=== PATIENT | male | born 1965 | race African-American/Black ===

== ENCOUNTER 2016-10-03 22:27 | Inpatient (IN) | payer OTHER ==
[2016-10-03 22:47] VITALS: BMI 42.3
[2016-10-03] MEDS ORDERED: ALBUTEROL SO4 0.083% IH SOL 2.5 MG/3 ML VIAL.NEB. NEB ONE ×2 (22:59→23:17)
[2016-10-03] MEDS ORDERED: MAGNESIUM SULF 50% (8.12 MEQ/2 ML-1 GM VIAL) IVPB ONE (22:59)
--- NOTE | 2016-10-03 23:11 | PDOC ---
History of Present Illness - General History Source: Patient Exam Limitations: No Limitations - History of Present Illness Initial Comments: 10/03/16 23:15 The patient is a 51 year old male, with a significant past medical history of IDDM, GERD, COPD, CHF, HTN, HLD, asthma, chronic kidney disease, right kidney CA (In remission since 2010) and seizures (last episode age 6, not on any meds) , who presents to the emergency department with shortness of breath, cough, fever, chills and night sweats for the past 3 days. He notes that his cough is productive of a white phlegm. He denies any sick contacts or recent travel. The patient denies chest pain, headache and dizziness. Denies nausea, vomit, diarrhea and constipation. Denies dysuria, frequency, urgency and hematuria. Allergies: Codeine, Iodine Past surgical history: None reported Social history: Alcohol, cocaine and cigarette use (10 daily) PMD - Dr. Anderson Ojeda Biochemistry Teacher - Dr. Stephanie Blankenship Agricultural Pilot - Dr. Higgins <Josesito De Anda - Last Filed: 10/03/16 23:15> - General History Source: Patient Exam Limitations: No Limitations <Richie Vale - Last Filed: 10/04/16 00:47> - General Chief Complaint: Asthma Stated Complaint: ASTHMA Time Seen by Provider: 10/03/16 22:35 Past History <Josesito De Anda - Last Filed: 10/03/16 23:15> - Past Medical History Anemia: No Asthma: Yes (MDI) Cancer: Yes (RT. KIDNEY in [place] 2010 on remission) Cardiac Disorders: No CVA: No COPD: No CHF: No Dementia: No Diabetes: Yes (IDDM DUE TO PREDNISONE TX(ENDED 08/25/16)) GI Disorders: Yes (HX GERD-NEXIUM) Disorders: No HTN: Yes Hypercholesterolemia: Yes Kidney Stones: No Liver Disease: Yes Suicide Attempt (Hx): No (DENIES) Seizures: Yes (LAST EPISODE AT 6 YRS OLD;NO CURRENT MED) Thyroid Disease: No - Surgical History Abdominal Surgery: No Appendectomy: No Cardiac Surgery: No Cholecystectomy: No Lung Surgery: No Neurologic Surgery: No Orthopedic Surgery: No - Reproductive History Testicular Surgery: No - Psycho/Social/Smoking Cessation Hx Anxiety: Yes Suicidal Ideation: No Smoking Status: Yes Smoking History: Former smoker Have you smoked in the past 12 months: Yes Number of Cigarettes Smoked Daily: 10 Cigars Per Day: 0 Information on smoking cessation initiated: No 'Breaking Loose' booklet given: 08/27/16 Hx Alcohol Use: No Drug/Substance Use Hx: No Substance Use Type: Alcohol, Cocaine Hx Substance Use Treatment: Yes ([facility]) <Richie Vale - Last Filed: 10/04/16 00:47> - Past Medical History Allergies/Adverse Reactions: Allergies Allergy/AdvReac Type Severity Reaction Status Date / Time codeine [Codeine] Allergy Severe Swelling Verified 08/31/16 15:01 iodine [Iodine] Allergy Severe Swelling Verified 08/31/16 15:01 shellfish derived Allergy Severe Swelling Verified 08/31/16 15:01 [Shellfish Derived] Home Medications: Ambulatory Orders Albuterol Sulfate Inhaler - [Ventolin HFA Inhaler -] 2 inh IH Q4H PRN 01/21/12 Aspirin [Ecotrin] 81 mg PO DAILY 12/17/15 Fluticasone/Salmeterol [Advair 250-50 Diskus] 2 inh PO BID 12/17/15 Insulin (Levemir) [Levemir Vial] 30 units SQ HS 12/17/15 Insulin (Novolog) [Novolog -] 0 units SQ AC 12/17/15 Citalopram Hydrobromide [Celexa -] 40 mg PO DAILY 08/27/16 Aspirin Coated [Ecotrin -] 81 mg PO DAILY tablet.ec 09/07/16 Atorvastatin Ca [Lipitor] 80 mg PO HS #14 tablet 09/07/16 Hydralazine HCl [Apresoline -] 20 mg PO TID #180 tablet 09/07/16 Review of Systems - Review of Systems Able to Perform ROS?: Yes Comments:: 10/03/16 23:15 GENERAL/CONSTITUTIONAL: +Fever, night sweats and chills. No weakness. HEAD, EYES, EARS, NOSE AND THROAT: No change in vision. No ear pain or discharge. No sore throat. CARDIOVASCULAR: +Shortness of breath. No chest pain RESPIRATORY: +Cough. No wheezing, or hemoptysis. GASTROINTESTINAL: No nausea, vomiting, diarrhea or constipation. GENITOURINARY: No dysuria, frequency, or change in urination. MUSCULOSKELETAL: No joint or muscle swelling or pain. No neck or back pain. SKIN: No rash NEUROLOGIC: No headache, vertigo, loss of consciousness, or change in strength/ sensation. ENDOCRINE: No increased thirst. No abnormal weight change HEMATOLOGIC/LYMPHATIC: No anemia, easy bleeding, or history of blood clots. ALLERGIC/IMMUNOLOGIC: No hives or skin allergy. <Josesito De Anda - Last Filed: 10/03/16 23:15> *Physical Exam - Vital Signs Last Vital Signs Temp Pulse Resp BP Pulse Ox 99 F 168/114 98 10/03/16 22:43 10/03/16 22:43 10/03/16 22:43 - Physical Exam Comments: 10/03/16 23:19 GENERAL: Awake, alert, and fully oriented, in no acute distress HEAD: No signs of trauma, normocephalic, atraumatic EYES: PERRLA, EOMI, sclera anicteric, conjunctiva clear ENT: Auricles normal inspection, hearing grossly normal, nares patent, oropharynx clear without exudates. Moist mucosa NECK: Normal ROM, supple, no lymphadenopathy, JVD, or masses LUNGS: +Scattered wheezing bilaterally. No distress, speaks full sentences. HEART: Regular rate and rhythm, normal S1 and S2, no murmurs, rubs or gallops, peripheral pulses normal and equal bilaterally. ABDOMEN: Soft, nontender, normoactive bowel sounds. No guarding, no rebound. No masses EXTREMITIES: Normal inspection, Normal range of motion, no edema. No clubbing or cyanosis. NEUROLOGICAL: Cranial nerves II through XII grossly intact. Normal speech, no focal sensorimotor deficits SKIN: Warm, Dry, normal turgor, no rashes or lesions noted. <Josesito De Anda - Last Filed: 10/03/16 23:15> - Vital Signs Last Vital Signs Temp Pulse Resp BP Pulse Ox 99 F 168/114 98 10/03/16 22:43 10/03/16 22:43 10/03/16 22:43 <Richie Vale - Last Filed: 10/04/16 00:47> Heart Score/ECG Review #1 ECG reviewed & interpreted by me at: 23:35 10/03/16 23:40 NSR 110, incomplete RBBB, atrial enlargement, no std/narendra, LAFB, QTC 516 msec <Richie Vale - Last Filed: 10/04/16 00:47> ED Treatment Course - LABORATORY CBC & Chemistry Diagram: 10/03/16 23:00 10/03/16 23:00 - RADIOLOGY Radiology Studies Ordered: Category Date Time Status CHEST X-RAY PORTABLE* [RAD] Stat Radiology 10/03/16 22:48 Ordered <Richie Vale - Last Filed: 10/04/16 00:47> Medical Decision Making - Medical Decision Making 10/03/16 23:10 A portion of this note was documented by scribe services under my direction. I have reviewed the details of the note, within reason, and agree with the documentation with the following case summary and management plan written by me. Patient treated in the ED. Nursing notes are reviewed and incorporated into the medical decision-making. Vital signs reviewed. Peripheral IV access obtained by the nurse, laboratory studies are drawn and sent, reviewed and interpreted by myself. Vital Signs Temp Pulse Resp BP Pulse Ox 99 F 168/114 98 10/03/16 22:43 10/03/16 22:43 10/03/16 22:43 51 year old male with past medical history of COPD, hypertension, congestive heart failure, COPD, asthma, chronic kidney disease presents to the emergency department for shortness of breath and coughing for 3 days. Patient denies any sick contacts but has noted of diffuse expiratory wheezing and clearish productive sputum and tactile fevers. Reports chest pain when coughing only. Denies any increasing lower extremity edema but does report some increased orthopnea. The patient is diffusely wheezing concerning for COPD exacerbation. However, CHF is within the differential. We'll obtain blood work, chest x-ray, labs. The patient already received 125 aggressive Solu-Medrol and couple nebulizers by EMS. We'll get 2 g of IV magnesium. Obtain a chest x-ray. Patient will likely be admitted to the hospital for further evaluation. 10/04/16 00:44 CBC, BMP 10/03/16 23:00 10/03/16 23:00 CMP Sodium 143 mmol/L (136-145) 10/03/16 23:00 Potassium 3.4 mmol/L (3.5-5.1) L 10/03/16 23:00 Chloride 103 mmol/L (98-107) 10/03/16 23:00 Carbon Dioxide 28 mmol/L (21-32) 10/03/16 23:00 Anion Gap 12 (8-16) 10/03/16 23:00 BUN 16 mg/dL (7-18) D 10/03/16 23:00 Creatinine 2.8 mg/dL (0.7-1.3) H D 10/03/16 23:00 Creat Clearance w eGFR 23.92 (>60) 10/03/16 23:00 Random Glucose 188 mg/dL (74-106) H D 10/03/16 23:00 Calcium 8.5 mg/dL (8.5-10.1) 10/03/16 23:00 Magnesium 1.6 mg/dL (1.8-2.4) L 10/04/16 00:05 Total Bilirubin 0.2 mg/dL (0.2-1.0) D 10/03/16 23:00 AST 25 U/L (15-37) 10/03/16 23:00 ALT 18 U/L (12-78) D 10/03/16 23:00 Alkaline Phosphatase 105 U/L (45-117) D 10/03/16 23:00 Creatine Kinase 945 IU/L (39-308) H D 10/03/16 23:00 CK-MB (CK-2) 4.609 ng/ml (0.5-3.6) H 10/03/16 23:00 CK-MB (CK-2) Rel Index Cancelled 10/03/16 23:00 Troponin I 0.07 ng/ml (0.00-0.05) H D 10/03/16 23:00 B-Natriuretic Peptide 90638.88 pg/ml (5-125) H 10/03/16 23:00 Total Protein 6.5 g/dl (6.4-8.2) 10/03/16 23:00 Albumin 2.6 g/dl (3.4-5.0) L 10/03/16 23:00 Chest xray reviewed by me, pending official radiology read. Cardiomegaly with pulm vasc congestion. 40mg IV lasix ordered. Aspirin ordered. Slightly elevated troponin (likely chronic). Patient wheezing improved but still persists. Azithromycin ordered. Influenza negative. Case discussed with Dr Rogers. She accepts the patient to telemetry admission. Case discussed in detail with admitting physician including history, physical exam and ancillary studies. Admitting physician has assumed care for the patient, will follow all pending diagnostics and will complete the evaluation and treatment. <Richie Vale - Last Filed: 10/04/16 00:47> *DC/Admit/Observation/Transfer - Attestations Scribe Attestion: 10/03/16 23:19 Documentation prepared by Josesito De Anda, acting as medical cost consultant for Richie Vale MD. <Josesito De Anda - Last Filed: 10/03/16 23:15> - Discharge Dispostion Admit: Yes <Richie Vale - Last Filed: 10/04/16 00:47> Diagnosis at time of Disposition: Chronic obstructive pulmonary disease Qualifiers: COPD type: unspecified COPD Qualified Code(s): J44.9 - Chronic obstructive pulmonary disease, unspecified CHF (congestive heart failure) Qualifiers: Congestive heart failure type: unspecified congestive heart failure type Congestive heart failure chronicity: acute on chronic Qualified Code(s): I50.9 - Heart failure, unspecified - Discharge Dispostion Condition at time of disposition: Fair - Referrals Referrals: Anderson Ojeda [Primary Care Provider] -
[2016-10-03] MEDS ORDERED: MAGNESIUM SULF 50% (8.12 MEQ/2 ML-1 GM VIAL) ONE (23:17)
[2016-10-03 23:19] LABS: BASOPHIL 0.8 % (0-2.0); EOSINOPHIL 1.1 % (0-4.5); MCH 24.7 pg (25.7-33.7); MCHC 31.6 g/dl (32.0-35.9); MEAN CELL VOLUME 78.1 fl (80-96); NEUTROPHILS 72.5 % (42.8-82.8); PLATELET COUNT 347 K/MM3 (134-434); WHITE BLOOD COUNT 12.2 K/mm3 (4.0-10.0)
[2016-10-03] MEDS ORDERED: ACETAMINOPHEN 325 MG TABLET (FP) PO ONE (23:26)
[2016-10-03 23:32] LABS: INR 1.09 (0.82-1.09)
[2016-10-03 23:35] LABS: ACTIVATED PTT 33.9 SECONDS (26.9-34.4)
[2016-10-03] MEDS ORDERED: ACETAMINOPHEN 325 MG TABLET (FP) ONE (23:35)
[2016-10-03 23:43] LABS: ALBUMIN 2.6 g/dl (3.4-5.0); BILIRUBIN,TOTAL 0.2 mg/dL (0.2-1.0); CALCIUM 8.5 mg/dL (8.5-10.1); CREATININE 2.8 mg/dL (0.7-1.3); TOT PROT 6.5 g/dl (6.4-8.2)
[2016-10-03 23:55] LABS: TROPONIN I 0.07 ng/ml (0.00-0.05)
[2016-10-04] MEDS ORDERED: FUROSEMIDE 40 MG/4 ML INJECTABLE VIAL IVPB ONE (00:18)
[2016-10-04] MEDS ORDERED: AZITHROMYCIN IVPB 500 MG in DEXTROSE 5%-WATER - 250 ML IVPB ONE (00:18)
[2016-10-04] MEDS ORDERED: FUROSEMIDE 40 MG/4 ML INJECTABLE VIAL ONE ×2 (00:21→02:04)
[2016-10-04] MEDS ORDERED: AZITHROMYCIN IVPB 250 ML IVPB ONE (00:21)
[2016-10-04] MEDS ORDERED: ALBUTEROL SO4 0.083% IH SOL 2.5 MG/3 ML VIAL.NEB. NEB ONE ×3 (00:31→06:24)
[2016-10-04] MEDS ORDERED: POTASSIUM CHLORIDE TABS 20 MEQ TABLET.ER (FP) PO ONE ×2 (01:18→01:47)
[2016-10-04] MEDS ORDERED: FUROSEMIDE 40 MG/4 ML INJECTABLE VIAL IVPUSH ONE (01:54)
--- NOTE | 2016-10-04 02:03 | HP ---
CHIEF COMPLAINT: SOB, cough PCP: Anderson Ojeda HISTORY OF PRESENT ILLNESS: This is a 51 year old male with a past medical history of COPD/asthma, HTN, HLD , CAD, CHF, R kidney resection, CKD, Hep C, ETOH, DM, GERD, chronic back pain, crack/cocaine abuse who presented to the ED with SOB, cough, fever, chills x 3 days. Reports cough is mildly productive with whitish phlegm. He was recently hospitalized here from 08/31-09/07 for CHF exacerbation. Pt states that he stopped taking his lasix because his "legs weren't swollen". He had an appointment with a telephone clerks supervisor, Dr. Higgins yesterday but did not go because he wasn't feeling well. He has not followed up with cardiology since his discharge as recommended. ER course was notable for: (1) BNP 19,946 (2) Trop 0.07, CK 945 (3) Cr 2.8 Recent Travel: pt denies PAST MEDICAL HISTORY: COPD/asthma HTN HLD CAD CHF R kidney cancer s/p resection 2010 CKD Hep C s/p treatment with [facility] DM GERD chronic back pain seizures-last at age 6, on no medications PAST SURGICAL HISTORY: R kidney resection Social History: Smoking: quit 1 week ago, previous 1/2 PPD Alcohol: quit 1 week ago Drugs: previous crack/cocaine use, last used 1 week ago Family History: mother , kidney failure and heart problems 2 siblings, one with RA, one with panic attacks Allergies codeine [Codeine] Allergy (Severe, Verified 08/31/16 15:01) Swelling iodine [Iodine] Allergy (Severe, Verified 08/31/16 15:01) Swelling shellfish derived [Shellfish Derived] Allergy (Severe, Verified 08/31/16 15:01) Swelling HOME MEDICATIONS: 3 Medication Instructions Recorded Albuterol Sulfate Inhaler - 2 inh IH Q4H PRN 01/21/12 [Ventolin HFA Inhaler -] Aspirin [Ecotrin] 81 mg PO DAILY 12/17/15 Fluticasone/Salmeterol [Advair 2 inh PO BID 12/17/15 250-50 Diskus] Insulin (Levemir) [Levemir Vial] 30 units SQ HS 12/17/15 Insulin (Novolog) [Novolog -] 0 units SQ AC 12/17/15 Citalopram Hydrobromide [Celexa -] 40 mg PO DAILY 08/27/16 Aspirin Coated [Ecotrin -] 81 mg PO DAILY tablet.ec 09/07/16 Atorvastatin Ca [Lipitor] 80 mg PO HS #14 tablet 09/07/16 Hydralazine HCl [Apresoline -] 20 mg PO TID #180 tablet 09/07/16 REVIEW OF SYSTEMS CONSTITUTIONAL: Present: fever, chills Absent: diaphoresis, generalized weakness, malaise, loss of appetite, weight change HEENT: Absent: rhinorrhea, nasal congestion, throat pain, throat swelling, difficulty swallowing, mouth swelling, ear pain, eye pain, visual changes CARDIOVASCULAR: Absent: chest pain, syncope, palpitations, irregular heart rate, lightheadedness , peripheral edema RESPIRATORY: Present: cough, shortness of breath Absent: dyspnea with exertion, orthopnea, wheezing, stridor, hemoptysis GASTROINTESTINAL: Absent: abdominal pain, abdominal distension, nausea, vomiting, diarrhea, constipation, melena, hematochezia GENITOURINARY: Absent: dysuria, frequency, urgency, hesitancy, hematuria, flank pain, genital pain MUSCULOSKELETAL: Absent: myalgia, arthralgia, joint swelling, back pain, neck pain SKIN: Absent: rash, itching, pallor HEMATOLOGIC/IMMUNOLOGIC: Absent: easy bleeding, easy bruising, lymphadenopathy, frequent infections ENDOCRINE: Absent: unexplained weight gain, unexplained weight loss, heat intolerance, cold intolerance NEUROLOGIC: Absent: headache, focal weakness or paresthesias, dizziness, unsteady gait, seizure, mental status changes, bladder or bowel incontinence PSYCHIATRIC: Absent: anxiety, depression, suicidal or homicidal ideation, hallucinations. PHYSICAL EXAMINATION Vital Signs - 24 hr 3 10/03/16 10/04/16 22:43 02:13 Temperature 99 F Pulse Rate [ 104 H Left Radial] Respiratory 21 Rate Blood Pressure 168/114 Blood Pressure 151/91 [Right Arm] O2 Sat by Pulse 98 97 Oximetry (%) GENERAL: Awake, alert, and fully oriented, in no acute distress. HEAD: Normal with no signs of trauma. EYES: Pupils equal, round and reactive to light, extraocular movements intact, sclera anicteric, conjunctiva clear. No lid lag. EARS, NOSE, THROAT: Ears normal, nares patent, oropharynx clear without exudates. Moist mucous membranes. NECK: Normal range of motion, supple without lymphadenopathy,or masses. + JVD LUNGS: Breath sounds equal, clear to auscultation bilaterally. No wheezes No accessory muscle use. + crackles bilat bases HEART: Regular rate and rhythm, tachy, normal S1 and S2 without murmur, rub or gallop. ABDOMEN: Soft, nontender, not distended, normoactive bowel sounds, no guarding, no rebound, no masses. No hepatomegaly or splenomegaly. MUSCULOSKELETAL: Normal range of motion at all joints. No bony deformities or tenderness. No CVA tenderness. UPPER EXTREMITIES: 2+ pulses, warm, well-perfused. No cyanosis. No clubbing. Cap refill <2 seconds. No peripheral edema. LOWER EXTREMITIES: 2+ pulses, warm, well-perfused. No calf tenderness. tr peripheral edema. NEUROLOGICAL: Cranial nerves II-XII intact. Normal speech. Normal gait. PSYCHIATRIC: Cooperative. Good eye contact. Appropriate mood and affect. SKIN: Warm, dry, normal turgor, no rashes or lesions noted. Laboratory Results - last 24 hr 3 10/03/16 10/03/16 10/03/16 10/04/16 23:00 23:00 23:00 00:05 WBC 12.2 H RBC 4.43 Hgb 10.9 L Hct 34.6 L MCV 78.1 L MCHC 31.6 L RDW 15.0 Plt Count 347 D MPV 8.0 Neutrophils % 72.5 Lymphocytes % 18.0 D Monocytes % 7.6 Eosinophils % 1.1 Basophils % 0.8 INR 1.09 PTT (Actin FS) 33.9 Sodium 143 Potassium 3.4 L Chloride 103 Carbon Dioxide 28 Anion Gap 12 BUN 16 D Creatinine 2.8 H D Creat Clearance w eGFR 23.92 Random Glucose 188 H D Calcium 8.5 Magnesium 1.6 L Total Bilirubin 0.2 D AST 25 ALT 18 D Alkaline Phosphatase 105 D Creatine Kinase 945 H D CK-MB (CK-2) 4.609 H CK-MB (CK-2) Rel Index Cancelled Troponin I 0.07 H D B-Natriuretic Peptide 95655.88 H Total Protein 6.5 Albumin 2.6 L ECG: sinus tachy, rate 110, QTC 516, prolonged, new inverted T wave v2 when compared with ECG on 08/31/16, otherwise unchanged CXR: increased vascular markings, haziness to costovertebral angles, LARGE heart , official read pending ASSESSMENT/PLAN: 51yM with PMH COPD/asthma, HTN, HLD, CAD, CHF, R kidney resection, CKD, Hep C, ETOH, DM, GERD, chronic back pain, crack/cocaine abuse who presented to the ED with SOB, cough, fever, chills x 3 days. He is being admitted for both CHF and COPD exacerbation. CHF exacerbation - lasix 40mg given in ED, only 200cc urine output, will give additional 40mg - start lasix 80mg daily - cont hydralazine - cardiology consult Elevated troponin - likely chronic related to CHF and CKD, trend x 2 more COPD exacerbation - cont albuterol nebs PRN, home advair changed to formulary symbicort - defer steroid use for now as not wheezing - dc azithromycin, QT prolonging agent with already prolonged QTC, monitor need for antibiotics. HTN, CAD - cont home hydralazine, monitor BP and adjust medications PRN if persistently elevated - restart plavix ( was on dc med list from last hospitalization but pt did not take ) DM - cont home levemir and sliding scale novolog CKD - baseline cr unknown, lowest on previous admission 2.2 - nephrology consult DVT PPX - lovenox 40mg SC qd FEN - tolerating po, avoid IVF - repeat labs in am, K and Mg repleted - diabetic / low sodium diet as tolerated Dispo: Pt currently requires inpatient care. Visit type - Emergency Visit Emergency Visit: Yes ED Registration Date: 10/03/16 Care time: The patient presented to the Emergency Department on the above date and was hospitalized for further evaluation of their emergent condition. - New Patient This patient is new to me today: Yes Date on this admission: 10/04/16 - Critical Care Critical Care patient: No
[2016-10-04] MEDS ORDERED: CLOPIDOGREL BISULFATE 75 MG TABLET (FP) PO ONE (03:14)
[2016-10-04] MEDS ORDERED: CLOPIDOGREL BISULFATE 75 MG TABLET (FP) ONE (03:45)
[2016-10-04] MEDS: hydrALAZINE HCL 10 MG TABLET PO SCH ×2 (06:37→23:55)
[2016-10-04 08:28] LABS: BASOPHIL 0.2 % (0-2.0); MCH 25.3 pg (25.7-33.7); MCHC 32.6 g/dl (32.0-35.9); MEAN CELL VOLUME 77.8 fl (80-96); NEUTROPHILS 92.8 % (42.8-82.8); PLATELET COUNT 351 K/MM3 (134-434); RDW 14.7 % (11.9-15.9); WHITE BLOOD COUNT 10.1 K/mm3 (4.0-10.0)
[2016-10-04 08:57] LABS: CALCIUM 8.6 mg/dL (8.5-10.1); PHOSPHOROUS 3.9 mg/dL (2.5-4.9)
[2016-10-04 09:10] LABS: TROPONIN I 0.05 ng/ml (0.00-0.05)
[2016-10-04] MEDS ORDERED: ENOXAPARIN NA (PORCINE) 40 MG/0.4 ML DISP.SYRIN SQ SCH (10:00)
[2016-10-04] MEDS ORDERED: FUROSEMIDE 40 MG/4 ML INJECTABLE VIAL IVPUSH SCH (10:00)
[2016-10-04] MEDS ORDERED: CITALOPRAM HYDROBROMIDE 20 MG TABLET (FP) PO SCH (10:00)
[2016-10-04] MEDS: INSULIN SLIDING SCALE (NOVOLOG) 1 VIAL SQ SCH ×2 (12:30→17:13)
[2016-10-04] MEDS: ASPIRIN COATED 81 MG TABLET.EC PO SCH (12:32)
[2016-10-04] MEDS: CITALOPRAM HYDROBROMIDE 20 MG TABLET (FP) PO SCH (12:32)
[2016-10-04] MEDS: POTASSIUM CHLORIDE TABS 20 MEQ TABLET.ER (FP) PO SCH (12:32)
[2016-10-04 12:43] LABS: TROPONIN I 0.05 ng/ml (0.00-0.05)
[2016-10-04] MEDS ORDERED: INSULIN REGULAR HUMAN 100 UNITS/ML *VIAL ONE (15:09)
--- NOTE | 2016-10-04 15:35 | EKG ---
Test Reason : Blood Pressure : / mmHG Vent. Rate : 104 BPM Atrial Rate : 104 BPM P-R Int : 166 ms QRS Dur : 094 ms QT Int : 412 ms P-R-T Axes : 064 -44 121 degrees QTc Int : 541 ms SINUS TACHYCARDIA BIATRIAL ENLARGEMENT LEFT AXIS DEVIATION INCOMPLETE RIGHT BUNDLE BRANCH BLOCK NONSPECIFIC T WAVE ABNORMALITY ABNORMAL ECG WHEN COMPARED WITH ECG OF 03-OCT-2016 23:33, T WAVE INVERSION NOW EVIDENT IN LATERAL LEADS Confirmed by STEPHEN POSADAS, DAVID ([id number]) on 10/04/2016 3:35:04 PM Referred By: HÉCTOR AERVALO Confirmed By:DAVID MITCHELL MD
--- NOTE | 2016-10-04 15:38 | EKG ---
Test Reason : Blood Pressure : / mmHG Vent. Rate : 110 BPM Atrial Rate : 110 BPM P-R Int : 150 ms QRS Dur : 104 ms QT Int : 382 ms P-R-T Axes : 058 -58 104 degrees QTc Int : 516 ms SINUS TACHYCARDIA POSSIBLE LEFT ATRIAL ENLARGEMENT INCOMPLETE RIGHT BUNDLE BRANCH BLOCK LEFT ANTERIOR FASCICULAR BLOCK ABNORMAL QRS-T ANGLE, CONSIDER PRIMARY T WAVE ABNORMALITY ABNORMAL ECG WHEN COMPARED WITH ECG OF 31-AUG-2016 17:53, NO SIGNIFICANT CHANGE WAS FOUND Confirmed by DAVID MITCHELL MD ([id number]) on 10/04/2016 3:37:47 PM Referred By: Confirmed By:DAVID MITCHELL MD
--- NOTE | 2016-10-04 15:49 | CON.CARD ---
Cardiology Consult (text) - Consultation Consultation Note: CC: sob 51 year old smoker etoh and crack user with history of biventricular cardiomyopathy (recent admit 08/2016 with cardiorenal requiring milrinone for diuresis), COPD/Asthma, HTN, HLD on zocor, R partial nephrectomy for cancer, CKD , IDDM, Hepatitis C s/p harvoni, remote Seizure history, Alcohol abuse, depression chronic back pain who presents with sob Since discharge has been using etoh regularly with intermittent vomiting and poor po intake. Also with intermittent crack use (last used a few days ago). Since then developed sob (requiring inhalers around the clock), cough, f/c/s, nasal congestion, myalgias for the past few days with even more decreased po intake. Mild diarrhea. + nausea . Has not been taking lasix since discharge. Denies chest pain. No orthopnea, pnd, palps, dizziness, le edema. bleeding or transient neurologic symptoms. He denies headache, rashes, visual disturbances. s/p lasix 40 mg iv x 2 overnight and lasix 80 mg IV x 1 today PAST MEDICAL HISTORY: Per hpi PAST SURGICAL HISTORY: per hpi Social History: Smoking: current smoker Alcohol: + EtOH abuse, Drugs: + crack (smoking) Family History: HTN and ESRD, Mother (HTN,ALCOHOL,) ROS: per hpi Ambulatory Orders Albuterol Sulfate Inhaler - [Ventolin HFA Inhaler -] 2 inh IH Q4H PRN 01/21/12 Aspirin [Ecotrin] 81 mg PO DAILY 12/17/15 Fluticasone/Salmeterol [Advair 250-50 Diskus] 2 inh PO BID 12/17/15 Insulin (Levemir) [Levemir Vial] 30 units SQ HS 12/17/15 Insulin (Novolog) [Novolog -] 0 units SQ AC 12/17/15 Citalopram Hydrobromide [Celexa -] 40 mg PO DAILY 08/27/16 Atorvastatin Ca [Lipitor] 80 mg PO HS #14 tablet 09/07/16 Hydralazine HCl [Apresoline -] 20 mg PO TID #180 tablet 09/07/16 Current Medications Albuterol Sulfate (Ventolin 0.083% Nebulizer Soln -) 1 amp NEB Q6H PRN PRN Reason: WHEEZING Aspirin (Ecotrin -) 81 mg PO DAILY [facility] Last Admin: 10/04/16 12:32 Dose: 81 mg Atorvastatin Calcium (Lipitor -) 40 mg PO HS [facility] Budesonide/Formoterol Fumarate (Symbicort 80/4.5mcg -) 2 puff IH BID [facility] Citalopram Hydrobromide (Celexa -) 20 mg PO DAILY [facility] Last Admin: 10/04/16 12:32 Dose: 20 mg Enoxaparin Sodium (Lovenox -) 40 mg SQ DAILY [facility] Last Admin: 10/04/16 12:32 Dose: 40 mg Furosemide (Lasix Injection -) 80 mg IVPUSH DAILY [facility] Last Admin: 10/04/16 12:32 Dose: 80 mg Hydralazine HCl (Apresoline -) 20 mg PO TID [facility] Last Admin: 10/04/16 06:37 Dose: 20 mg Insulin Aspart (Novolog Vial Sliding Scale -) 1 vial SQ TIDAC [facility] PRN Reason: Protocol Last Admin: 10/04/16 12:30 Dose: 4 units Insulin Detemir (Levemir Vial) 30 units SQ [facility] Potassium Chloride (K-Dur -) 20 meq PO DAILY [facility] Last Admin: 10/04/16 12:32 Dose: 20 meq Vital Signs - 24 hr 10/03/16 10/04/16 10/04/16 22:43 02:13 06:28 Temperature 99 F 97.3 F L Pulse Rate Pulse Rate [ 104 H 97 H Left Radial] Respiratory 21 19 Rate Blood Pressure 168/114 Blood Pressure 151/91 149/92 [Right Arm] O2 Sat by Pulse 98 97 98 Oximetry (%) 10/04/16 10/04/16 12:25 12:31 Temperature 98 F Pulse Rate 107 H Pulse Rate [ 107 H Left Radial] Respiratory 20 20 Rate Blood Pressure 141/97 Blood Pressure 141/97 [Right Arm] O2 Sat by Pulse 98 100 Oximetry (%) Intake & Output 10/02/16 10/03/16 10/04/16 10/05/16 07:59 07:59 07:59 07:59 Weight 270 lb 270 lb NAD, calm JVD flat, neck supple tachycardic, regular nl s1, s2 no m/r/g diminshed air movement, nl effort trace edema no cyanosis or clubbing diminished dp/pt no jaundice, diaphoresis aaox3 CBC, BMP 10/04/16 06:20 10/04/16 06:20 Laboratory Tests 08/31/16 09/04/16 10/03/16 18:00 05:45 23:00 Creatinine 2.8 H D Magnesium Total Bilirubin 0.2 D AST 25 ALT 18 D Alkaline Phosphatase 105 D Creatine Kinase 945 H D Creatine Kinase Index CK-MB (CK-2) 4.609 H Troponin I 0.07 H D B-Natriuretic Peptide 9038.32 H 46325.88 H Albumin 2.5 L 2.6 L 10/04/16 06:20 Creatinine Magnesium 2.0 D Total Bilirubin AST ALT Alkaline Phosphatase Creatine Kinase 1404 H D Creatine Kinase Index 0.5 CK-MB (CK-2) 6.655 H Troponin I 0.05 B-Natriuretic Peptide Albumin EKG sinus tachycardia 104 bpm. LAD. Prolonged qt, JESSICA. Diffuse T wave abnormalities with biphasic T waves laterally tele: Sinus tach CXR: cardiomegaly, poor visualization of left base. 08/2016 echo: MIld concentric LVH, mod-severely reduced systolic function ( global). Moderately reduced RV systolic function. mild lae. mild-mod MR. Mod TR. RVSP 40-50. 08/2016 persantine stress: small inferior defect with subtle apical reversibility. LV cavity appears dilated with dyskinetic apex. EF 33%. a/p: 51 year old smoker etoh and crack user with history of biventricular cardiomyopathy (recent admit 08/2016 with cardiorenal requiring milrinone for diuresis), COPD/Asthma, HTN, HLD on zocor, R partial nephrectomy for cancer, CKD , IDDM, Hepatitis C s/p harvoni, remote Seizure history, Alcohol abuse, depression chronic back pain who presents with sob Rhabdomyolysis - Elevated CK likely related to dehydration and crack/cocaine use. Worsened after IV lasix. Would start gentle hydration. Close monitoring of volume status. biventricular systolic HF and diastolic HF exacerbation: - new dx of cardiomyopathy in August, NICM based on stress testing, had cardiorenal syndrome requiring milrinone for diuresis. D/c meds lasix 80 po bid , kcl, hydralazine. D/c weight 268 lbs. No lita/arb given ckd. - Current weight well below dry weight. Appears dry. IVF as mentioned above. daily weights, i/o's and daily cmp. - Start metoprolol, consider adding imdur down the road. Prolonged qt - Borderline prolonged on prior ekg's on long standing citalopram. Correct electrolyte abnormalities. Telemetry monitoring. Repeat ekg when metabolic disturbances corrected. DWAIN on CKD with h/o R partial nephrectomy - now with rhabdo/dehydration. IVF as mentioned above. HTN - con't meds. adding metoprolol. HL - con't statin COPD - per pmd. ETOH/tobacco/crack use - cessation counseling. s/p recent detox.
[2016-10-04] MEDS: ALBUTEROL SO4 0.083% IH SOL 2.5 MG/3 ML VIAL.NEB. NEB PRN (21:26)
[2016-10-04] MEDS ORDERED: SODIUM CHLORIDE 1,000 ML IV SCH (21:30)
[2016-10-04] MEDS ORDERED: ATORVASTATIN CA 20 MG TABLET (FP) ONE ×2 (23:41→23:42)
[2016-10-04] MEDS: ATORVASTATIN CA 40 MG TABLET (FP) PO SCH (23:53)
[2016-10-04] MEDS: INSULIN DETEMIR 100 UNITS/ML MDV SQ SCH (23:55)
[2016-10-05] MEDS: BUDESONIDE/FORMETEROL FUMARATE 80/4.5 mcg INHALER IH SCH ×3 (00:06→21:37)
[2016-10-05] MEDS ORDERED: PT OWN MED DRAWER 7, Y5N ONE ×3 (00:10→20:44)
[2016-10-05] MEDS: ALBUTEROL SO4 0.083% IH SOL 2.5 MG/3 ML VIAL.NEB. NEB PRN ×2 (04:08→15:33)
[2016-10-05] MEDS: hydrALAZINE HCL 10 MG TABLET PO SCH ×4 (05:43→21:38)
[2016-10-05] MEDS: INSULIN SLIDING SCALE (NOVOLOG) 1 VIAL SQ SCH ×3 (06:44→16:05)
[2016-10-05 07:10] LABS: MCH 25.1 pg (25.7-33.7); MCHC 32.3 g/dl (32.0-35.9); MEAN CELL VOLUME 77.7 fl (80-96); MEAN PLT VOLUME 7.8 fl (7.5-11.1); PLATELET COUNT 372 K/MM3 (134-434); RDW 15.1 % (11.9-15.9); WHITE BLOOD COUNT 11.4 K/mm3 (4.0-10.0)
[2016-10-05 07:40] LABS: ALBUMIN 2.7 g/dl (3.4-5.0); CALCIUM 8.2 mg/dL (8.5-10.1)
[2016-10-05 07:43] LABS: BILIRUBIN,TOTAL 0.2 mg/dL (0.2-1.0); CREATININE 3.1 mg/dL (0.7-1.3); TOT PROT 6.4 g/dl (6.4-8.2)
[2016-10-05] MEDS: CITALOPRAM HYDROBROMIDE 20 MG TABLET (FP) PO SCH (09:56)
[2016-10-05] MEDS: ASPIRIN COATED 81 MG TABLET.EC PO SCH (09:57)
[2016-10-05] MEDS: METOPROLOL SUCCINATE 25 MG TAB.SR.24H (FP) PO SCH (09:57)
[2016-10-05] MEDS: POTASSIUM CHLORIDE TABS 20 MEQ TABLET.ER (FP) PO SCH (09:57)
--- NOTE | 2016-10-05 10:48 | EKG ---
Test Reason : Blood Pressure : / mmHG Vent. Rate : 106 BPM Atrial Rate : 106 BPM P-R Int : 150 ms QRS Dur : 102 ms QT Int : 402 ms P-R-T Axes : 070 -44 102 degrees QTc Int : 533 ms SINUS TACHYCARDIA BIATRIAL ENLARGEMENT LEFT AXIS DEVIATION PULMONARY DISEASE PATTERN INCOMPLETE RIGHT BUNDLE BRANCH BLOCK NONSPECIFIC T WAVE ABNORMALITY PROLONGED QT ABNORMAL ECG WHEN COMPARED WITH ECG OF 04-OCT-2016 08:41, NONSPECIFIC T WAVE ABNORMALITY HAS REPLACED INVERTED T WAVES IN LATERAL LEADS Confirmed by RAH LATHAM MD ([id number]) on 10/05/2016 10:47:57 AM Referred By: KRISTOPHER WRIGHT Confirmed By:RAH LATHAM MD
--- NOTE | 2016-10-05 11:23 | PN ---
Progress Note (short form) - Note Progress Note: PULMONARY CONSULTATION DICTATED 10/05/16 IMP COPD/ASTHMA EXACERBATION URI CHF CKD H/O RENAL CELL CA S/P NEPHRECTOMY HTN DM LIKELY OSAS H/O HEP C PLAN IV STEROIDS INHALED BRONCHODILATORS NASAL O2 ANTIBIOTICS INFLUENZA SCREEN PFTS OUTPATIENT SMOKING CESSATION COUNSELED CHEST CT SLEEP STUDIES OUTPATIENT DR HELTON Problem List - Problems (1) CHF (congestive heart failure) Code(s): I50.9 - HEART FAILURE, UNSPECIFIED Qualifiers: Congestive heart failure type: unspecified congestive heart failure type Congestive heart failure chronicity: acute on chronic Qualified Code(s): I50.9 - Heart failure, unspecified (2) COPD (chronic obstructive pulmonary disease) Code(s): J44.9 - CHRONIC OBSTRUCTIVE PULMONARY DISEASE, UNSPECIFIED Qualifiers : COPD type: unspecified COPD Qualified Code(s): J44.9 - Chronic obstructive pulmonary disease, unspecified (3) Alcohol dependence with uncomplicated withdrawal Code(s): F10.230 - ALCOHOL DEPENDENCE WITH WITHDRAWAL, UNCOMPLICATED (4) Chronic kidney disease (CKD) stage G3a/A3, moderately decreased glomerular filtration rate (GFR) between 45-59 mL/min/1.73 square meter and albuminuria creatinine ratio greater than 300 mg/g Code(s): N18.3 - CHRONIC KIDNEY DISEASE, STAGE 3 (MODERATE) (5) Cocaine dependence, uncomplicated Code(s): F14.20 - COCAINE DEPENDENCE, UNCOMPLICATED (6) Edema Code(s): R60.9 - EDEMA, UNSPECIFIED Qualifiers: Edema type: generalized Qualified Code(s): R60.1 - Generalized edema (7) Nicotine dependence Code(s): F17.200 - NICOTINE DEPENDENCE, UNSPECIFIED, UNCOMPLICATED Qualifiers : Nicotine product type: cigarettes Substance use status: uncomplicated Qualified Code(s): F17.210 - Nicotine dependence, cigarettes, uncomplicated (8) Asthma Code(s): J45.909 - UNSPECIFIED ASTHMA, UNCOMPLICATED Qualifiers: Asthma severity: mild intermittent Asthma complication type: uncomplicated Qualified Code(s): J45.20 - Mild intermittent asthma, uncomplicated (9) HTN (hypertension) Code(s): I10 - ESSENTIAL (PRIMARY) HYPERTENSION Qualifiers: Hypertension type: essential hypertension Qualified Code(s): I10 - Essential (primary) hypertension (10) Hepatitis C Code(s): B19.20 - UNSPECIFIED VIRAL HEPATITIS C WITHOUT HEPATIC COMA Qualifiers: Viral hepatitis chronicity: unspecified Hepatic coma status: without hepatic coma Qualified Code(s): B19.20 - Unspecified viral hepatitis C without hepatic coma (11) Obesities, morbid Code(s): E66.01 - MORBID (SEVERE) OBESITY DUE TO EXCESS CALORIES Qualifiers: Obesity type: unspecified obesity type Qualified Code(s): E66.01 - Morbid (severe) obesity due to excess calories (12) Type II diabetes mellitus Code(s): E11.9 - TYPE 2 DIABETES MELLITUS WITHOUT COMPLICATIONS (13) COPD with asthma Code(s): J44.9 - CHRONIC OBSTRUCTIVE PULMONARY DISEASE, UNSPECIFIED J45.909 - UNSPECIFIED ASTHMA, UNCOMPLICATED
--- NOTE | 2016-10-05 11:33 | CONSULT ---
Consult - text type - Consultation Consultation Note: Renal Consult for CKD This is a 51 year old Gentleman with PMhx of CKD Stage 4 with right partial nephrectomy for RCC, Biventricular cardiomyopathy, COPD, Hypertension, Hyperlipidemia, IDDM, Hepatitis C, Polysubstance abuse presented with complaints of cough, sob and weakness and found to have Rhabdo and BUN/Cr of 162.8. Pt s/p recent hospitlization for CHF/Cardio-renal syndrome was was discharged with a Cr of 3. Pt had not been taking the Lasix he was prescribed. He admits to ETOH and coccaine use. No chest pain, fever, chills, N/V/D. No MILLIGAN, confusion or lethargy. + NSSAID use. No contrast expsoure. No rash. Pt recieved Lasix IV sine admission. Feels slightly better now. PMhx: as above Allergies: Codine Family hx: NC Social hx: + ETOH, Tobacco, Coccaine Home Meds: Medication Instructions Recorded Albuterol Sulfate Inhaler - 2 inh IH Q4H PRN 01/21/12 [Ventolin HFA Inhaler -] Aspirin [Ecotrin] 81 mg PO DAILY 12/17/15 Fluticasone/Salmeterol [Advair 2 inh PO BID 12/17/15 250-50 Diskus] Insulin (Levemir) [Levemir Vial] 30 units SQ HS 12/17/15 Insulin (Novolog) [Novolog -] 0 units SQ AC 12/17/15 Citalopram Hydrobromide [Celexa -] 40 mg PO DAILY 08/27/16 Atorvastatin Ca [Lipitor] 80 mg PO HS #14 tablet 09/07/16 Hydralazine HCl [Apresoline -] 20 mg PO TID #180 tablet 09/07/16 Vital Signs Temperature 98.2 F 10/05/16 01:00 Pulse Rate 105 H 10/05/16 06:00 Respiratory Rate 22 10/05/16 06:00 Blood Pressure 144/97 10/05/16 06:00 O2 Sat by Pulse Oximetry (%) 93 L 10/04/16 21:00 Intake & Output 10/02/16 10/03/16 10/04/16 10/05/16 23:59 23:59 23:59 23:59 Intake Total 600 Balance 600 Weight 270 lb 260 lb 8 oz 263 lb 6.4 oz Gen: NAD, awake and alert HEENT: NC/AT, No JVD, Neck supple CVS: RRR, No M/R Lungs: CTA, no rales or wheeze Abd: soft NT/ND Ext: Trace to 1+ edema, no cyanosis or clubbing Neuro: AAOx3, no focal defects CBC, BMP 10/05/16 05:35 10/05/16 05:35 Current Medications Albuterol Sulfate (Ventolin 0.083% Nebulizer Soln -) 1 amp NEB Q6H PRN PRN Reason: WHEEZING Last Admin: 10/05/16 04:08 Dose: 1 amp Aspirin (Ecotrin -) 81 mg PO DAILY [facility] Last Admin: 10/05/16 09:57 Dose: 81 mg Atorvastatin Calcium (Lipitor -) 40 mg PO HS [facility] Last Admin: 10/04/16 23:53 Dose: 40 mg Budesonide/Formoterol Fumarate (Symbicort 80/4.5mcg -) 2 puff IH BID [facility] Last Admin: 10/05/16 00:06 Dose: 2 puff Citalopram Hydrobromide (Celexa -) 20 mg PO DAILY [facility] Last Admin: 10/05/16 09:56 Dose: 20 mg Heparin Sodium (Porcine) (Heparin -) 5,000 unit SQ TID [facility] Hydralazine HCl (Apresoline -) 20 mg PO TID [facility] Last Admin: 10/05/16 06:09 Dose: 20 mg Sodium Chloride (Normal Saline -) 1,000 mls @ 50 mls/hr IV ASDIR [facility] Stop: 10/05/16 21:23 Last Admin: 10/04/16 23:55 Dose: Not Given Insulin Aspart (Novolog Vial Sliding Scale -) 1 vial SQ TIDAC [facility] PRN Reason: Protocol Last Admin: 10/05/16 06:44 Dose: 8 units Insulin Detemir (Levemir Vial) 30 units SQ HS [facility] Last Admin: 10/04/16 23:55 Dose: 30 units Methylprednisolone Sodium Succinate (Solu-Medrol -) 40 mg IVPB Q8H-IV [facility] Metoprolol Succinate (Toprol Xl -) 25 mg PO DAILY [facility] Last Admin: 10/05/16 09:57 Dose: 25 mg Potassium Chloride (K-Dur -) 20 meq PO DAILY [facility] Last Admin: 10/05/16 09:57 Dose: 20 meq A/P 51 year old Gentleman with PMhx of CKD Stage 4 with right partial nephrectomy for RCC, Biventricular cardiomyopathy, COPD, Hypertension, Hyperlipidemia, IDDM , Hepatitis C, Polysubstance abuse presented with complaints of cough, sob and weakness and found to have Rhabdo and BUN/Cr of 162.8. #CKD Stage 4 with Rhabdomyolyisis Renal function improved from prior admssion Cr slowly uptrending with IV lasix pt is non-oliguric Pt is evolemic at this time agree with holding lasix at this time CK uptrendnig to 2k, check UA, UPCR, Urine Myoglobin No need for IVF at this time, can orally hydrate if CK > 5000 will need IVF Trend BUN/cr and CK levels dose all med for Cr Cl ~20 #SOB with Hx fo COPD/CHF not decompensated now off diuretics continue steroids as needed Pulmonary and Cardiology follow up #Hypertension Continue Hydralazine Goal BP < 140/90 Consider addition of CCB if bp daxa frias Thank you will follow Trevor Jenkins DO
--- NOTE | 2016-10-05 11:46 | PN ---
Progress Note (short form) - Note Progress Note: s: no cp palps dizzy; still with sob/wheezing, steroids helped yesterday o: Vital Signs Period Temp Pulse Resp BP Sys/Zhou Pulse Ox Last 24 Hr 98 F-98.5 F 105-111 18-22 141-178/83-100 93-100 NAD, calm JVD flat, neck supple regular rr nl s1, s2 no m/r/g bl exp wheeze, nl eff trace le edema bl no cyanosis or clubbing no jaundice, diaphoresis aaox3 Current Medications Generic Name Dose Route Start Last Admin Trade Name Freq PRN Reason Stop Dose Admin Albuterol Sulfate 1 amp 10/04/16 02:23 10/05/16 04:08 Ventolin 0.083% Nebulizer Soln - NEB 1 amp Q6H PRN Administration WHEEZING Aspirin 81 mg 10/04/16 10:00 10/05/16 09:57 Ecotrin - PO 81 mg DAILY [facility] Administration Atorvastatin Calcium 40 mg 10/04/16 22:00 10/04/16 23:53 Lipitor - PO 40 mg HS [facility] Administration Budesonide/Formoterol Fumarate 2 puff 10/04/16 10:00 10/05/16 10:33 Symbicort 80/4.5mcg - IH 2 puff BID [facility] Administration Citalopram Hydrobromide 20 mg 10/04/16 10:45 10/05/16 09:56 Celexa - PO 20 mg DAILY [facility] Administration Heparin Sodium (Porcine) 5,000 unit 10/05/16 14:00 Heparin - SQ TID [facility] Hydralazine HCl 20 mg 10/04/16 06:00 10/05/16 06:09 Apresoline - PO 20 mg TID [facility] Administration Insulin Aspart 1 vial 10/04/16 07:00 10/05/16 11:38 Novolog Vial Sliding Scale - SQ Not Given TIDAC [facility] Protocol Insulin Detemir 30 units 10/04/16 22:00 10/04/16 23:55 Levemir Vial SQ 30 units HS [facility] Administration Methylprednisolone Sodium Succinate 40 mg 10/05/16 10:30 Solu-Medrol - IVPB Q8H-IV [facility] Metoprolol Succinate 25 mg 10/05/16 10:00 10/05/16 09:57 Toprol Xl - PO 25 mg DAILY [facility] Administration CBC, BMP 10/05/16 05:35 10/05/16 05:35 tele: SR CXR: cardiomegaly, poor visualization of left base. 08/2016 echo: MIld concentric LVH, mod-severely reduced systolic function ( global). Moderately reduced RV systolic function. mild lae. mild-mod MR. Mod TR. RVSP 40-50. 08/2016 persantine stress: small inferior defect with subtle apical reversibility. LV cavity appears dilated with dyskinetic apex. EF 33%. a/p: 51 year old smoker etoh and crack user with history of biventricular cardiomyopathy (recent admit 08/2016 with cardiorenal requiring milrinone for diuresis), COPD/Asthma, HTN, HLD on zocor, R partial nephrectomy for cancer, CKD , IDDM, Hepatitis C s/p harvoni, remote Seizure history, Alcohol abuse, depression chronic back pain who presents with sob Rhabdomyolysis - Elevated CK likely related to dehydration and crack/cocaine use. Worsened after IV lasix. Cont gentle hydration. Close monitoring of volume status. biventricular systolic HF and diastolic HF exacerbation: - new dx of cardiomyopathy in August, NIC based on stress testing, had cardiorenal syndrome requiring milrinone for diuresis. D/c meds lasix 80 po bid , kcl, hydralazine. D/c weight 268 lbs. No lita/arb given ckd. - Current weight below dry weight. Appears dry. IVF as mentioned above. daily weights, i/o's and daily cmp. - on metoprolol, consider adding imdur down the road. - once crystal/rhabdo resolved will resume maintenance lasix po CRYSTAL on CKD with h/o R partial nephrectomy - now with rhabdo/dehydration. IVF as mentioned above. - renal following HTN - con't current meds. HL - con't statin COPD - with wheezing still, steroids per per pmd/pulm ETOH/tobacco/crack use - cessation counseling. s/p recent detox. can dc tele
[2016-10-05] MEDS: methylPREDNISolone NA SUCC 40 MG/1 ML VIAL IVPB SCH ×2 (11:56→17:39)
--- NOTE | 2016-10-05 12:29 | PN ---
Progress Note (short form) - Note Progress Note: Subjective: The patient was seen and examined at the bedside, he reports feeling better with IV steroids yesterday, but now is having more difficulty breathing B/l end expiratory wheezing on physical exam Patient refused IV fluids yesterday Current Medications Generic Name Dose Route Start Last Admin Trade Name Freq PRN Reason Stop Dose Admin Albuterol Sulfate 1 amp 10/04/16 02:23 10/05/16 04:08 Ventolin 0.083% Nebulizer Soln - NEB 1 amp Q6H PRN Administration WHEEZING Aspirin 81 mg 10/04/16 10:00 10/05/16 09:57 Ecotrin - PO 81 mg DAILY [facility] Administration Atorvastatin Calcium 40 mg 10/04/16 22:00 10/04/16 23:53 Lipitor - PO 40 mg HS [facility] Administration Budesonide/Formoterol Fumarate 2 puff 10/04/16 10:00 10/05/16 10:33 Symbicort 80/4.5mcg - IH 2 puff BID [facility] Administration Citalopram Hydrobromide 20 mg 10/04/16 10:45 10/05/16 09:56 Celexa - PO 20 mg DAILY [facility] Administration Heparin Sodium (Porcine) 5,000 unit 10/05/16 14:00 Heparin - SQ TID [facility] Hydralazine HCl 20 mg 10/04/16 06:00 10/05/16 06:09 Apresoline - PO 20 mg TID [facility] Administration Insulin Aspart 1 vial 10/04/16 07:00 10/05/16 11:38 Novolog Vial Sliding Scale - SQ Not Given TIDAC [facility] Protocol Insulin Detemir 30 units 10/04/16 22:00 10/04/16 23:55 Levemir Vial SQ 30 units HS [facility] Administration Methylprednisolone Sodium Succinate 40 mg 10/05/16 12:00 10/05/16 11:56 Solu-Medrol - IVPB 40 mg Q8H-IV [facility] Administration Metoprolol Succinate 25 mg 10/05/16 10:00 10/05/16 09:57 Toprol Xl - PO 25 mg DAILY [facility] Administration Objective: Vital Signs Period Temp Pulse Resp BP Sys/Zhou Pulse Ox Last 24 Hr 98 F-98.5 F 105-111 18-22 141-178/83-100 93-100 Physical Exam: General: NAD, A&Ox3 HEENT: Right eye strabismus Lungs: B/l end expiratory wheezing Heart: RRR, S1S2 Abd: Soft, non-tender, non-distended. Normoactive bowel sounds Ext: Warm, well-perfused. 1+ B/l lower extremity edema. 2+ DP/PT bilaterally CBCD WBC 11.4 K/mm3 (4.0-10.0) H 10/05/16 05:35 RBC 4.27 M/mm3 (4.00-5.60) 10/05/16 05:35 Hgb 10.7 GM/dL (11.7-16.9) L 10/05/16 05:35 Hct 33.2 % (35.4-49) L 10/05/16 05:35 MCV 77.7 fl (80-96) L 10/05/16 05:35 MCHC 32.3 g/dl (32.0-35.9) 10/05/16 05:35 RDW 15.1 % (11.9-15.9) 10/05/16 05:35 Plt Count 372 K/MM3 (134-434) 10/05/16 05:35 MPV 7.8 fl (7.5-11.1) 10/05/16 05:35 CMP Sodium 141 mmol/L (136-145) 10/05/16 05:35 Potassium 3.4 mmol/L (3.5-5.1) L 10/05/16 05:35 Chloride 102 mmol/L (98-107) 10/05/16 05:35 Carbon Dioxide 29 mmol/L (21-32) 10/05/16 05:35 Anion Gap 10 (8-16) 10/05/16 05:35 BUN 24 mg/dL (7-18) H D 10/05/16 05:35 Creatinine 3.1 mg/dL (0.7-1.3) H 10/05/16 05:35 Creat Clearance w eGFR 21.26 (>60) 10/05/16 05:35 Random Glucose 163 mg/dL (74-106) H D 10/05/16 05:35 Calcium 8.2 mg/dL (8.5-10.1) L 10/05/16 05:35 Total Bilirubin 0.2 mg/dL (0.2-1.0) 10/05/16 05:35 AST 50 U/L (15-37) H D 10/05/16 05:35 ALT 29 U/L (12-78) D 10/05/16 05:35 Alkaline Phosphatase 100 U/L (45-117) 10/05/16 05:35 Total Protein 6.4 g/dl (6.4-8.2) 10/05/16 05:35 Albumin 2.7 g/dl (3.4-5.0) L 10/05/16 05:35 CARDIAC ENZYMES Creatine Kinase 2723 IU/L (39-308) H D 10/05/16 05:35 Troponin I 0.05 ng/ml (0.00-0.05) 10/04/16 11:45 Microbiology 10/03/16 23:14 Blood - Peripheral Venous Blood Culture - Preliminary NO GROWTH OBTAINED AFTER 24 HOURS, INCUBATION TO CONTINUE FOR 4 DAYS. 10/03/16 23:14 Blood - Peripheral Venous Blood Culture - Preliminary NO GROWTH OBTAINED AFTER 24 HOURS, INCUBATION TO CONTINUE FOR 4 DAYS. 10/03/16 23:00 Nasopharyngeal Swab Influenza Types A,B Antigen (JR) - Final 10/03/16 23:00 Nasopharyngeal Swab - Final Assessment: This is a 51 year old male with PMHx of COPD/asthma, HTN, HLD, CAD, CHF, R kidney resection, CKD, Hep C, ETOH, DM, GERD, chronic back pain, crack/ cocaine abuse who presented to the ED with SOB, cough, fever, chills x 3 days Plan: 1) Pulmonary: Acute on Chronic COPD exacerbation - Started on Solu-medrol - Continue Albuterol nebs - Continue Symbicort - Chest CT with moderate mediastinal lymphadenopathy, increased since 2011 - Chest X-ray with no evidence of CHF, pulmonary infiltrates, pneuothorax, pleural effusions - F/u pulmonary consult 2) Cardiology: Chronic biventricular systolic heart failure and diastolic heart failure - Current weight below dry weight - New diagnosis of cardiomyopathy in August - Will hold Lasix for now as the patient appears dry and rhabdo noted - Appreciate cardiology consult HTN - Continue home medications HLD - Continue statin Prolonged QTc - Decreased Celexa to 20mg po daily, continue to taper - F/u psych consult for further recommendations 3) : CKD stage 4 with rhabdomyolysis - Renal function slightly better than prior admission - Continue to hold lasix as patient appears euvolemic - Elevated CK, instructed the patient to increase po fluid intake - Continue to trend CK, if >5000 will need IVF - Appreciate nephrology consult 4) Psych: ETOH, crack/cocaine abuse 5) Endocrine: IDDM - BGM ACHS - ISS ACHS - Continue Levemir 6) F/E/N: - Diabetic, low sodium diet - Monitor electrolytes 7) Prophylaxis: - Heparin 5,000u sq tid 8) Dispo: - Requires continued inpatient care CODE STATUS: FULL CODE Visit type - Emergency Visit Emergency Visit: Yes ED Registration Date: 10/04/16 Care time: The patient presented to the Emergency Department on the above date and was hospitalized for further evaluation of their emergent condition. - New Patient This patient is new to me today: Yes Date on this admission: 10/05/16 - Critical Care Critical Care patient: No
--- NOTE | 2016-10-05 12:40 | CONS ---
DATE OF CONSULTATION: 10/05/2016 REFERRING PHYSICIAN: Adilene Peterson NP HISTORY OF PRESENT ILLNESS: The patient is a 51-year-old black male, past medical history of insulin-dependent diabetes mellitus, asthma, history of respiratory failure requiring ventilatory support in 1996, GERD, COPD, congestive heart failure, hyperlipidemia, hypertension, chronic kidney disease, status post partial nephrectomy in right kidney secondary to renal cell CA, in remission since 2010, seizure disorder, last at age 6, history of cardiomyopathy, admitted to [facility] with complaint of 3- to 4-day history of increasing shortness of breath, cough, fever, chills, and night sweats. Patient denying complaints of nausea, vomiting, or diaphoresis. Patient states his cough is productive of white sputum. Denied hemoptysis. Of note is the patient was recently hospitalized at [facility] secondary to CHF. Patient denies any recent travel. There is no history of occupational exposure to chemical fumes. He has a longstanding history of tobacco use and currently still smokes. PAST MEDICAL HISTORY: Again includes asthma, COPD, history of respiratory failure in the past requiring ventilatory support in 1996, cardiomyopathy, insulin-dependent diabetes mellitus, GERD, CHF, hypertension, hyperlipidemia, chronic kidney disease, history of renal cell CA, status post partial nephrectomy, seizures. REVIEW OF SYSTEMS: Positive dyspnea, positive orthopnea, positive cough, positive sputum, positive fever, positive chills, positive bronchospasm. No chest pain. Positive chest tightness. No abdominal pain. CURRENT MEDICATIONS: Include Solu-Medrol 40 q.8, Symbicort, heparin, Celexa, albuterol, Toprol, Apresoline, normal saline, Lipitor, NovoLog, Levemir, Ecotrin, and K-Dur. PHYSICAL EXAMINATION: General: The patient is a well-developed, well-nourished male, awake, alert, in no acute distress. Vital Signs: He is currently afebrile, blood pressure is 144/97, respiratory rate is 22, weight is 263 pounds, O2 saturation is 93% on room air. HEENT: Normocephalic, atraumatic. Neck: Supple. Heart: Regular. S1, S2. Chest: Scattered bilateral expiratory wheezes. Abdomen: Soft. Bowel sounds are positive. Extremities: Trace bilateral lower extremity edema. LABORATORIES: WBC is 11.4, hemoglobin 10.7, hematocrit 33.2, and a platelet count of 372,000. INR is 1.09. Blood gas: PH is 7.48, PCO2 of 45, PO2 of 76, bicarbonate of 32, and a saturation of 95.5. Chemistries: BUN is 24, creatinine is 3.1. CK is 2723. BNP is elevated at 19,946. Chest x-ray reveals no acute infiltrates or effusions. IMPRESSION: 1. Cough, chest congestion most likely secondary to acute asthma, chronic obstructive pulmonary disease exacerbation likely secondary to upper respiratory infection. 2. History of congestive heart failure. 3. Chronic kidney disease. 4. Hypertension. 5. History of renal cell carcinoma, status post partial nephrectomy. 6. Likely obstructive sleep apnea syndrome. Patient gives a history of excessive snoring, daytime sleepiness, as well as witnessed apnea episodes. PLAN: IV steroids. Inhaled bronchodilators. Supplemental O2. Pulmonary function tests as outpatient. Sleep study as outpatient. Monitor renal function. Smoking cessation. Also, CT scan of the chest. DEMI HELTON M.D. [id number]
[2016-10-05 13:07] LABS: URINE APPEARANCE CLEAR; URINE BILIRUBIN NEGATIVE (NEGATIVE); URINE COLOR LTYELLOW; URINE GLUCOSE (UA) NEGATIVE (NEGATIVE); URINE KETONE NEGATIVE (NEGATIVE); URINE LEUK ESTERASE NEGATIVE (NEGATIVE); URINE NITRITE NEGATIVE (NEGATIVE); URINE UROBILINOGEN NEGATIVE E.U./dl (0.2-1.0)
[2016-10-05 13:08] LABS: URINE BLOOD 2+ (NEGATIVE); URINE PROTEIN 3+ (NEGATIVE)
[2016-10-05 13:09] LABS: URINE MUCUS RARE; URINE RBC 1 /hpf (0-3); URINE WBC 2 /hpf (3-5)
[2016-10-05] MEDS: HEPARIN NA (PORCINE) 5,000 UNITS/ML 1ML VIAL SQ SCH ×2 (15:02→21:38)
[2016-10-05] MEDS ORDERED: POTASSIUM CHLORIDE TABS 20 MEQ TABLET.ER (FP) PO ONE (16:39)
[2016-10-05] MEDS: INSULIN DETEMIR 100 UNITS/ML MDV SQ SCH (21:38)
[2016-10-05] MEDS: ATORVASTATIN CA 40 MG TABLET (FP) PO SCH (21:38)
[2016-10-06] MEDS: methylPREDNISolone NA SUCC 40 MG/1 ML VIAL IVPB SCH ×4 (02:56→21:36)
[2016-10-06] MEDS: HEPARIN NA (PORCINE) 5,000 UNITS/ML 1ML VIAL SQ SCH ×3 (05:52→21:36)
[2016-10-06] MEDS: hydrALAZINE HCL 10 MG TABLET PO SCH ×3 (05:52→21:36)
[2016-10-06] MEDS: INSULIN SLIDING SCALE (NOVOLOG) 1 VIAL SQ SCH ×3 (06:36→17:24)
[2016-10-06 07:55] LABS: BASOPHIL 0.2 % (0-2.0); MCH 24.9 pg (25.7-33.7); MCHC 32.1 g/dl (32.0-35.9); MEAN CELL VOLUME 77.5 fl (80-96); MEAN PLT VOLUME 7.9 fl (7.5-11.1); NEUTROPHILS 83.2 % (42.8-82.8); PLATELET COUNT 416 K/MM3 (134-434); RDW 14.8 % (11.9-15.9)
[2016-10-06 08:55] LABS: ALBUMIN 2.8 g/dl (3.4-5.0); BILIRUBIN,TOTAL 0.2 mg/dL (0.2-1.0); CALCIUM 8.3 mg/dL (8.5-10.1); MAGNESIUM 1.9 mg/dL (1.8-2.4); PHOSPHOROUS 3.7 mg/dL (2.5-4.9); TOT PROT 6.9 g/dl (6.4-8.2)
--- NOTE | 2016-10-06 08:58 | PN ---
Progress Note, Physician Chief Complaint: chf History of Present Illness: sob and wheezing improved since on steroids; starting to feel feet a bit swollen, no abd swelling no cp, palpit +cocaine, cigs - Current Medication List Current Medications: Active Medications Albuterol Sulfate (Ventolin 0.083% Nebulizer Soln -) 1 amp NEB Q6H PRN PRN Reason: WHEEZING Last Admin: 10/05/16 15:33 Dose: 1 amp Aspirin (Ecotrin -) 81 mg PO DAILY [facility] Last Admin: 10/05/16 09:57 Dose: 81 mg Atorvastatin Calcium (Lipitor -) 40 mg PO HS [facility] Last Admin: 10/05/16 21:38 Dose: 40 mg Budesonide/Formoterol Fumarate (Symbicort 80/4.5mcg -) 2 puff IH BID [facility] Last Admin: 10/05/16 21:37 Dose: 2 puff Citalopram Hydrobromide (Celexa -) 20 mg PO DAILY [facility] Last Admin: 10/05/16 09:56 Dose: 20 mg Heparin Sodium (Porcine) (Heparin -) 5,000 unit SQ TID [facility] Last Admin: 10/06/16 05:52 Dose: 5,000 unit Hydralazine HCl (Apresoline -) 20 mg PO TID [facility] Last Admin: 10/06/16 05:52 Dose: 20 mg Insulin Aspart (Novolog Vial Sliding Scale -) 1 vial SQ TIDAC [facility] PRN Reason: Protocol Last Admin: 10/06/16 06:36 Dose: 3 units Insulin Detemir (Levemir Vial) 30 units SQ HS [facility] Last Admin: 10/05/16 21:38 Dose: 30 units Methylprednisolone Sodium Succinate (Solu-Medrol -) 40 mg IVPB Q8H-IV [facility] Last Admin: 10/06/16 02:56 Dose: 40 mg Metoprolol Succinate (Toprol Xl -) 25 mg PO DAILY [facility] Last Admin: 10/05/16 09:57 Dose: 25 mg - Objective Vital Signs: Vital Signs Temperature 98 F 10/06/16 08:01 Pulse Rate 104 H 10/06/16 08:01 Respiratory Rate 20 10/06/16 08:01 Blood Pressure 145/93 10/06/16 08:01 O2 Sat by Pulse Oximetry (%) 97 10/05/16 21:00 Constitutional: Yes: Well Nourished, No Distress, Calm Cardiovascular: Yes: Regular Rate and Rhythm. No: JVD (very tds exam), Gallop, Murmur Respiratory: Yes: Regular, Wheezes. No: Accessory Muscle Use, Rales Extremities: No: Cold Edema: No Neurological: Yes: Alert, Oriented Psychiatric: No: Agitated Labs: CBC, BMP 10/06/16 05:45 INR, PTT INR 1.09 (0.82-1.09) 10/03/16 23:00 - ....Imaging EKG: Other (telem: NSR) Assessment/Plan 08/2016 echo: MIld concentric LVH, mod-severely reduced systolic function ( global). Moderately reduced RV systolic function. mild lae. mild-mod MR. Mod TR. RVSP 40-50. 08/2016 persantine stress: small inferior defect with subtle apical reversibility. LV cavity appears dilated with dyskinetic apex. EF 33%. a/p: 51 year old smoker etoh and crack-cocaine user with history of biventricular cardiomyopathy (recent admit 08/2016 with cardiorenal syndrome requiring milrinone for diuresis), COPD/Asthma, HTN, HLD on zocor, R partial nephrectomy for cancer, CKD, IDDM, Hepatitis C s/p harvoni, remote Seizure history, Alcohol abuse, depression chronic back pain who presents with sob Rhabdomyolysis - Elevated CK likely related to dehydration and crack/cocaine use. Worsened after IV lasix, now stopped - Cont gentle hydration with close monitoring of volume status. - close f/u of renal fxn, renal team following biventricular systolic HF and diastolic HF exacerbation: - new dx of cardiomyopathy in August 2016, probable NICM based on stress testing, hi risk for NIKOLE/HD initiation with cath dye load so deferred for now - had cardiorenal syndrome then requiring milrinone for diuresis. D/c meds lasix 80 po bid, kcl, hydralazine. D/c weight 268 lbs. No laurent/arb given ckd. - Current weight below dry weight. Appears dry - IVF now off, creat is at his prior d/c values 08/31 - wt trending up 260 to 266 over past 3 days--pt at risk for volume retention given on iv steroids, no signif fluid excess on exam though somewhat TDS--no pulm congestion on CT chest 1/20 - likely to need maintenance po diuretics, charity on steroids--start lasix 40 qd and watch bun/creat closely (was d/c'd on 80 bid last time) - cont toprol 25 for now--would like bid dosing but defer increase given active bronchospasm - deferring LAURENT/ARB given poor renal fxn with labile creatinines when previously here - add nitrates for preload/afterload reduction, hydral later if bp stable DWAIN on CKD with h/o R partial nephrectomy - now with rhabdo/dehydration. IVF as mentioned above. - renal following a.e. copd with wheezing: -on steroids -per pulm team HTN - con't current meds. HL - con't statin COPD - with wheezing still, steroids per per pmd/pulm ETOH/tobacco/crack use - cessation counselled here. s/p recent detox no need for ongoing tele monitoring
[2016-10-06] MEDS: ASPIRIN COATED 81 MG TABLET.EC PO SCH (09:01)
[2016-10-06] MEDS: BUDESONIDE/FORMETEROL FUMARATE 80/4.5 mcg INHALER IH SCH ×2 (09:02→21:37)
[2016-10-06] MEDS: CITALOPRAM HYDROBROMIDE 20 MG TABLET (FP) PO SCH (09:02)
[2016-10-06] MEDS: METOPROLOL SUCCINATE 25 MG TAB.SR.24H (FP) PO SCH (09:02)
--- NOTE | 2016-10-06 09:42 | PN ---
Progress Note (short form) - Note Progress Note: Renal Follow up for CKD Pt seen and examined at the bedside reports some throat discomfort with cough denies cp, sob or DUQUE No N/V/D Vital Signs Temperature 98 F 10/06/16 08:01 Pulse Rate 104 H 10/06/16 08:01 Respiratory Rate 20 10/06/16 08:01 Blood Pressure 145/93 10/06/16 08:01 O2 Sat by Pulse Oximetry (%) 97 10/05/16 21:00 Intake & Output 10/03/16 10/04/16 10/05/16 10/06/16 23:59 23:59 23:59 23:59 Intake Total 600 1460 150 Balance 600 1460 150 Weight 270 lb 260 lb 8 oz 263 lb 6.4 oz 266 lb 6 oz Gen: NAD, awake and alert CVS: RRR, No M/R Lungs: CTA, no rales or wheeze Abd: soft NT/ND Ext: Trace to 1+ edema, no cyanosis or clubbing CBC, BMP 10/06/16 05:45 10/06/16 05:45 Current Medications Albuterol Sulfate (Ventolin 0.083% Nebulizer Soln -) 1 amp NEB Q6H PRN PRN Reason: WHEEZING Last Admin: 10/05/16 15:33 Dose: 1 amp Aspirin (Ecotrin -) 81 mg PO DAILY [facility] Last Admin: 10/06/16 09:01 Dose: 81 mg Atorvastatin Calcium (Lipitor -) 40 mg PO HS [facility] Last Admin: 10/05/16 21:38 Dose: 40 mg Budesonide/Formoterol Fumarate (Symbicort 80/4.5mcg -) 2 puff IH BID [facility] Last Admin: 10/06/16 09:02 Dose: 2 puff Citalopram Hydrobromide (Celexa -) 20 mg PO DAILY [facility] Last Admin: 10/06/16 09:02 Dose: 20 mg Heparin Sodium (Porcine) (Heparin -) 5,000 unit SQ TID [facility] Last Admin: 10/06/16 05:52 Dose: 5,000 unit Hydralazine HCl (Apresoline -) 20 mg PO TID [facility] Last Admin: 10/06/16 05:52 Dose: 20 mg Insulin Aspart (Novolog Vial Sliding Scale -) 1 vial SQ TIDAC [facility] PRN Reason: Protocol Last Admin: 10/06/16 06:36 Dose: 3 units Insulin Detemir (Levemir Vial) 30 units SQ HS [facility] Last Admin: 10/05/16 21:38 Dose: 30 units Methylprednisolone Sodium Succinate (Solu-Medrol -) 40 mg IVPB Q8H-IV [facility] Last Admin: 10/06/16 09:01 Dose: 40 mg Metoprolol Succinate (Toprol Xl -) 25 mg PO DAILY [facility] Last Admin: 10/06/16 09:02 Dose: 25 mg A/P 51 year old Gentleman with PMhx of CKD Stage 4 with right partial nephrectomy for RCC, Biventricular cardiomyopathy, COPD, Hypertension, Hyperlipidemia, IDDM , Hepatitis C, Polysubstance abuse presented with complaints of cough, sob and weakness and found to have Rhabdo and BUN/Cr of 162.8. #CKD Stage 4 with Rhabdomyolyisis Renal function stable and pt with good urine output off diuretics at this time is is evolemic CK levels from this morning were not processed, Add on request was sent Continue oral hydration for now but if CK levels > 5000 may need gentle IVF UA shows 2+ blood w/o signifncat RBS consisent with Myoglobin pigment Trend BUN/Cr #SOB with Hx fo COPD/CHF not decompensated now off diuretics continue steroids as needed Pulmonary and Cardiology follow up #Hypertension BP and HR not well controlled would consider increasing dose of metoprolol or switching to atenolol Cardiology following Trevor Jenkins DO
[2016-10-06] MEDS: ALBUTEROL SO4 0.083% IH SOL 2.5 MG/3 ML VIAL.NEB. NEB PRN (10:33)
--- NOTE | 2016-10-06 10:43 | PN ---
Progress Note, Physician History of Present Illness: pulmonary alert,less dyspneic,still congested. - Current Medication List Current Medications: Active Medications Albuterol Sulfate (Ventolin 0.083% Nebulizer Soln -) 1 amp NEB Q6H PRN PRN Reason: WHEEZING Last Admin: 10/06/16 10:33 Dose: 1 amp Aspirin (Ecotrin -) 81 mg PO DAILY [facility] Last Admin: 10/06/16 09:01 Dose: 81 mg Atorvastatin Calcium (Lipitor -) 40 mg PO HS [facility] Last Admin: 10/05/16 21:38 Dose: 40 mg Budesonide/Formoterol Fumarate (Symbicort 80/4.5mcg -) 2 puff IH BID [facility] Last Admin: 10/06/16 09:02 Dose: 2 puff Citalopram Hydrobromide (Celexa -) 20 mg PO DAILY [facility] Last Admin: 10/06/16 09:02 Dose: 20 mg Heparin Sodium (Porcine) (Heparin -) 5,000 unit SQ TID [facility] Last Admin: 10/06/16 05:52 Dose: 5,000 unit Hydralazine HCl (Apresoline -) 20 mg PO TID [facility] Last Admin: 10/06/16 05:52 Dose: 20 mg Insulin Aspart (Novolog Vial Sliding Scale -) 1 vial SQ TIDAC [facility] PRN Reason: Protocol Last Admin: 10/06/16 06:36 Dose: 3 units Insulin Detemir (Levemir Vial) 30 units SQ [facility] Last Admin: 10/05/16 21:38 Dose: 30 units Methylprednisolone Sodium Succinate (Solu-Medrol -) 40 mg IVPB Q8H-IV [facility] Last Admin: 10/06/16 09:01 Dose: 40 mg Metoprolol Succinate (Toprol Xl -) 25 mg PO DAILY [facility] Last Admin: 10/06/16 09:02 Dose: 25 mg - Objective Vital Signs: Vital Signs Temperature 98 F 10/06/16 08:01 Pulse Rate 104 H 10/06/16 08:01 Respiratory Rate 20 10/06/16 08:01 Blood Pressure 145/93 10/06/16 08:01 O2 Sat by Pulse Oximetry (%) 98 10/06/16 08:00 Constitutional: Yes: Well Nourished, Calm Eyes: Yes: WNL HENT: Yes: WNL Neck: Yes: WNL Cardiovascular: Yes: Regular Rate and Rhythm, S1, S2 Respiratory: Yes: Wheezes (bilateral wheezes) Gastrointestinal: Yes: Normal Bowel Sounds, Soft Extremities: Yes: WNL Edema: Yes Labs: CBC, BMP 10/06/16 05:45 10/06/16 05:45 INR, PTT INR 1.09 (0.82-1.09) 10/03/16 23:00 - ....Imaging Cat Scan: Report Reviewed, Image Reviewed (MEDIASTINAL ADENOPATHY) Problem List - Problems (1) CHF (congestive heart failure) Code(s): I50.9 - HEART FAILURE, UNSPECIFIED Qualifiers: Congestive heart failure type: unspecified congestive heart failure type Congestive heart failure chronicity: acute on chronic Qualified Code(s): I50.9 - Heart failure, unspecified (2) COPD (chronic obstructive pulmonary disease) Code(s): J44.9 - CHRONIC OBSTRUCTIVE PULMONARY DISEASE, UNSPECIFIED Qualifiers : COPD type: unspecified COPD Qualified Code(s): J44.9 - Chronic obstructive pulmonary disease, unspecified (3) Alcohol dependence with uncomplicated withdrawal Code(s): F10.230 - ALCOHOL DEPENDENCE WITH WITHDRAWAL, UNCOMPLICATED (4) Chronic kidney disease (CKD) stage G3a/A3, moderately decreased glomerular filtration rate (GFR) between 45-59 mL/min/1.73 square meter and albuminuria creatinine ratio greater than 300 mg/g Code(s): N18.3 - CHRONIC KIDNEY DISEASE, STAGE 3 (MODERATE) (5) Cocaine dependence, uncomplicated Code(s): F14.20 - COCAINE DEPENDENCE, UNCOMPLICATED (6) Edema Code(s): R60.9 - EDEMA, UNSPECIFIED Qualifiers: Edema type: generalized Qualified Code(s): R60.1 - Generalized edema (7) Nicotine dependence Code(s): F17.200 - NICOTINE DEPENDENCE, UNSPECIFIED, UNCOMPLICATED Qualifiers : Nicotine product type: cigarettes Substance use status: uncomplicated Qualified Code(s): F17.210 - Nicotine dependence, cigarettes, uncomplicated (8) Asthma Code(s): J45.909 - UNSPECIFIED ASTHMA, UNCOMPLICATED Qualifiers: Asthma severity: mild intermittent Asthma complication type: uncomplicated Qualified Code(s): J45.20 - Mild intermittent asthma, uncomplicated (9) HTN (hypertension) Code(s): I10 - ESSENTIAL (PRIMARY) HYPERTENSION Qualifiers: Hypertension type: essential hypertension Qualified Code(s): I10 - Essential (primary) hypertension (10) Hepatitis C Code(s): B19.20 - UNSPECIFIED VIRAL HEPATITIS C WITHOUT HEPATIC COMA Qualifiers: Viral hepatitis chronicity: unspecified Hepatic coma status: without hepatic coma Qualified Code(s): B19.20 - Unspecified viral hepatitis C without hepatic coma (11) Obesities, morbid Code(s): E66.01 - MORBID (SEVERE) OBESITY DUE TO EXCESS CALORIES Qualifiers: Obesity type: unspecified obesity type Qualified Code(s): E66.01 - Morbid (severe) obesity due to excess calories (12) Type II diabetes mellitus Code(s): E11.9 - TYPE 2 DIABETES MELLITUS WITHOUT COMPLICATIONS (13) COPD with asthma Code(s): J44.9 - CHRONIC OBSTRUCTIVE PULMONARY DISEASE, UNSPECIFIED J45.909 - UNSPECIFIED ASTHMA, UNCOMPLICATED Assessment/Plan IMP COPD/ASTHMA EXACERBATION URI MEDIASTINAL ADENOPATHY ?REACTIVE, ? SARCOID,? MALIGNANT CHF CKD H/O RENAL CELL CA S/P NEPHRECTOMY HTN DM LIKELY OSAS H/O HEP C PLAN IV STEROIDS INCREASE TO Q6H INHALED BRONCHODILATORS NASAL O2 ANTIBIOTICS INFLUENZA SCREEN PFTS OUTPATIENT SMOKING CESSATION COUNSELED SLEEP STUDIES OUTPATIENT F/U CHEST CT OUTPATIENT IF NO CHANGE MED ADENOPATHY CONSIDER PET AND MEDIASTINOSCOPY LAURENT LEVEL OUTPATIENT DR HELTON Problem List - Problems (1) CHF (congestive heart failure) Code(s): I50.9 - HEART FAILURE, UNSPECIFIED Qualifiers: Congestive heart failure type: unspecified congestive heart failure type Congestive heart failure chronicity: acute on chronic Qualified Code(s): I50.9 - Heart failure, unspecified (2) COPD (chronic obstructive pulmonary disease) Code(s): J44.9 - CHRONIC OBSTRUCTIVE PULMONARY DISEASE, UNSPECIFIED Qualifiers : COPD type: unspecified COPD Qualified Code(s): J44.9 - Chronic obstructive pulmonary disease, unspecified (3) Alcohol dependence with uncomplicated withdrawal Code(s): F10.230 - ALCOHOL DEPENDENCE WITH WITHDRAWAL, UNCOMPLICATED (4) Chronic kidney disease (CKD) stage G3a/A3, moderately decreased glomerular filtration rate (GFR) between 45-59 mL/min/1.73 square meter and albuminuria creatinine ratio greater than 300 mg/g Code(s): N18.3 - CHRONIC KIDNEY DISEASE, STAGE 3 (MODERATE) (5) Cocaine dependence, uncomplicated Code(s): F14.20 - COCAINE DEPENDENCE, UNCOMPLICATED (6) Edema Code(s): R60.9 - EDEMA, UNSPECIFIED Qualifiers: Edema type: generalized Qualified Code(s): R60.1 - Generalized edema (7) Nicotine dependence Code(s): F17.200 - NICOTINE DEPENDENCE, UNSPECIFIED, UNCOMPLICATED Qualifiers : Nicotine product type: cigarettes Substance use status: uncomplicated Qualified Code(s): F17.210 - Nicotine dependence, cigarettes, uncomplicated (8) Asthma Code(s): J45.909 - UNSPECIFIED ASTHMA, UNCOMPLICATED Qualifiers: Asthma severity: mild intermittent Asthma complication type: uncomplicated Qualified Code(s): J45.20 - Mild intermittent asthma, uncomplicated (9) HTN (hypertension) Code(s): I10 - ESSENTIAL (PRIMARY) HYPERTENSION Qualifiers: Hypertension type: essential hypertension Qualified Code(s): I10 - Essential (primary) hypertension (10) Hepatitis C Code(s): B19.20 - UNSPECIFIED VIRAL HEPATITIS C WITHOUT HEPATIC COMA Qualifiers: Viral hepatitis chronicity: unspecified Hepatic coma status: without hepatic coma Qualified Code(s): B19.20 - Unspecified viral hepatitis C without hepatic coma (11) Obesities, morbid Code(s): E66.01 - MORBID (SEVERE) OBESITY DUE TO EXCESS CALORIES Qualifiers: Obesity type: unspecified obesity type Qualified Code(s): E66.01 - Morbid (severe) obesity due to excess calories (12) Type II diabetes mellitus Code(s): E11.9 - TYPE 2 DIABETES MELLITUS WITHOUT COMPLICATIONS (13) COPD with asthma Code(s): J44.9 - CHRONIC OBSTRUCTIVE PULMONARY DISEASE, UNSPECIFIED J45.909 - UNSPECIFIED ASTHMA, UNCOMPLICATED
--- NOTE | 2016-10-06 15:04 | PN ---
Progress Note (short form) - Note Progress Note: Subjective: The patient was seen and examined at the bedside, he reports feeling better after starting steroids yesterday CK trending down Current Medications Generic Name Dose Route Start Last Admin Trade Name Isamar PRN Reason Stop Dose Admin Albuterol Sulfate 1 amp 10/04/16 02:23 10/06/16 10:33 Ventolin 0.083% Nebulizer Soln - NEB 1 amp Q6H PRN Administration WHEEZING Aspirin 81 mg 10/04/16 10:00 10/06/16 09:01 Ecotrin - PO 81 mg DAILY [facility] Administration Atorvastatin Calcium 40 mg 10/04/16 22:00 10/05/16 21:38 Lipitor - PO 40 mg HS [facility] Administration Budesonide/Formoterol Fumarate 2 puff 10/04/16 10:00 10/06/16 09:02 Symbicort 80/4.5mcg - IH 2 puff BID [facility] Administration Citalopram Hydrobromide 20 mg 10/04/16 10:45 10/06/16 09:02 Celexa - PO 20 mg DAILY [facility] Administration Furosemide 40 mg 10/07/16 10:00 Lasix - PO DAILY [facility] Heparin Sodium (Porcine) 5,000 unit 10/05/16 14:00 10/06/16 14:49 Heparin - SQ 5,000 unit TID [facility] Administration Hydralazine HCl 20 mg 10/04/16 06:00 10/06/16 14:46 Apresoline - PO 20 mg TID [facility] Administration Insulin Aspart 1 vial 10/04/16 07:00 10/06/16 11:58 Novolog Vial Sliding Scale - SQ 2 units TIDAC [facility] Administration Protocol Insulin Detemir 30 units 10/04/16 22:00 10/05/16 21:38 Levemir Vial SQ 30 units HS [facility] Administration Isosorbide Mononitrate 30 mg 10/07/16 10:00 Imdur - PO DAILY [facility] Methylprednisolone Sodium Succinate 40 mg 10/06/16 15:00 10/06/16 14:46 Solu-Medrol - IVPB 40 mg Q6H-IV [facility] Administration Metoprolol Succinate 25 mg 10/05/16 10:00 10/06/16 09:02 Toprol Xl - PO 25 mg DAILY [facility] Administration Objective: Vital Signs Period Temp Pulse Resp BP Sys/Zhou Pulse Ox Last 24 Hr 97.4 F-98.2 F 93-104 18-20 145-158/93-109 97-98 Physical Exam: General: NAD, A&Ox3 HEENT: Right eye strabismus Lungs: B/l end expiratory wheezing, improving Heart: RRR, S1S2 Abd: Soft, non-tender, non-distended. Normoactive bowel sounds Ext: Warm, well-perfused. 1+ B/l lower extremity edema. 2+ DP/PT bilaterally CBCD WBC 9.0 K/mm3 (4.0-10.0) 10/06/16 05:45 RBC 4.43 M/mm3 (4.00-5.60) 10/06/16 05:45 Hgb 11.0 GM/dL (11.7-16.9) L 10/06/16 05:45 Hct 34.3 % (35.4-49) L 10/06/16 05:45 MCV 77.5 fl (80-96) L 10/06/16 05:45 MCHC 32.1 g/dl (32.0-35.9) 10/06/16 05:45 RDW 14.8 % (11.9-15.9) 10/06/16 05:45 Plt Count 416 K/MM3 (134-434) 10/06/16 05:45 MPV 7.9 fl (7.5-11.1) 10/06/16 05:45 CMP Sodium 138 mmol/L (136-145) 10/06/16 05:45 Potassium 4.7 mmol/L (3.5-5.1) D 10/06/16 05:45 Chloride 103 mmol/L (98-107) 10/06/16 05:45 Carbon Dioxide 23 mmol/L (21-32) D 10/06/16 05:45 Anion Gap 12 (8-16) 10/06/16 05:45 BUN 29 mg/dL (7-18) H D 10/06/16 05:45 Creatinine 3.0 mg/dL (0.7-1.3) H 10/06/16 05:45 Creat Clearance w eGFR 22.08 (>60) 10/06/16 05:45 Random Glucose 217 mg/dL (74-106) H D 10/06/16 05:45 Calcium 8.3 mg/dL (8.5-10.1) L 10/06/16 05:45 Total Bilirubin 0.2 mg/dL (0.2-1.0) 10/06/16 05:45 AST 39 U/L (15-37) H D 10/06/16 05:45 ALT 29 U/L (12-78) 10/06/16 05:45 Alkaline Phosphatase 102 U/L (45-117) 10/06/16 05:45 Total Protein 6.9 g/dl (6.4-8.2) 10/06/16 05:45 Albumin 2.8 g/dl (3.4-5.0) L 10/06/16 05:45 CARDIAC ENZYMES Creatine Kinase 1231 IU/L (39-308) H D 10/06/16 05:45 Troponin I 0.05 ng/ml (0.00-0.05) 10/04/16 11:45 Microbiology 10/03/16 23:14 Blood - Peripheral Venous Blood Culture - Preliminary NO GROWTH OBTAINED AFTER 48 HOURS, INCUBATION TO CONTINUE FOR 3 DAYS. 10/03/16 23:14 Blood - Peripheral Venous Blood Culture - Preliminary NO GROWTH OBTAINED AFTER 48 HOURS, INCUBATION TO CONTINUE FOR 3 DAYS. 10/03/16 23:00 Nasopharyngeal Swab Influenza Types A,B Antigen (JR) - Final 10/03/16 23:00 Nasopharyngeal Swab - Final Assessment: This is a 51 year old male with PMHx of COPD/asthma, HTN, HLD, CAD, CHF, R kidney resection, CKD, Hep C, ETOH, DM, GERD, chronic back pain, crack/ cocaine abuse who presented to the ED with SOB, cough, fever, chills x 3 days Plan: 1) Pulmonary: Acute on Chronic COPD exacerbation - Started on Solu-medrol, dose increased to q6h today - Continue Albuterol nebs - Continue Symbicort - Chest CT with moderate mediastinal lymphadenopathy, increased since 2011. Will need follow-up outpatient CT chest in 4 weeks, if no change then will consider PET as outpt - Chest X-ray with no evidence of CHF, pulmonary infiltrates, pneuothorax, pleural effusions - Appreciate pulmonary consult 2) Cardiology: Chronic biventricular systolic heart failure and diastolic heart failure - Current weight below dry weight - New diagnosis of cardiomyopathy in August - Will hold Lasix for now as the patient appears dry and rhabdo noted - Appreciate cardiology consult HTN - Continue home medications HLD - Continue statin Prolonged QTc - Decreased Celexa to 20mg po daily, continue to taper - F/u psych consult for further recommendations 3) : CKD stage 4 with rhabdomyolysis - Renal function slightly better than prior admission - Continue to hold lasix as patient appears euvolemic - Elevated CK trending down, instructed the patient to increase po fluid intake - Appreciate nephrology consult 4) Psych: ETOH, crack/cocaine abuse 5) Endocrine: IDDM - BGM ACHS - ISS ACHS - Continue Levemir 6) F/E/N: - Diabetic, low sodium diet - Monitor electrolytes 7) Prophylaxis: - Heparin 5,000u sq tid 8) Dispo: - Requires continued inpatient care CODE STATUS: FULL CODE Visit type - Emergency Visit Emergency Visit: Yes ED Registration Date: 10/04/16 Care time: The patient presented to the Emergency Department on the above date and was hospitalized for further evaluation of their emergent condition. - New Patient This patient is new to me today: No - Critical Care Critical Care patient: No
[2016-10-06] MEDS: ATORVASTATIN CA 40 MG TABLET (FP) PO SCH (21:37)
[2016-10-06] MEDS: INSULIN DETEMIR 100 UNITS/ML MDV SQ SCH (21:37)
[2016-10-07] MEDS: methylPREDNISolone NA SUCC 40 MG/1 ML VIAL IVPB SCH ×4 (02:43→22:23)
[2016-10-07] MEDS: hydrALAZINE HCL 10 MG TABLET PO SCH ×4 (06:36→22:23)
[2016-10-07] MEDS: INSULIN SLIDING SCALE (NOVOLOG) 1 VIAL SQ SCH ×3 (06:37→17:22)
[2016-10-07] MEDS: HEPARIN NA (PORCINE) 5,000 UNITS/ML 1ML VIAL SQ SCH ×3 (06:40→22:24)
[2016-10-07 10:00] LABS: ALBUMIN 2.8 g/dl (3.4-5.0); BILIRUBIN,TOTAL 0.3 mg/dL (0.2-1.0); CREATININE 3.3 mg/dL (0.7-1.3); MAGNESIUM 2.1 mg/dL (1.8-2.4); PHOSPHOROUS 4.1 mg/dL (2.5-4.9); TOT PROT 6.6 g/dl (6.4-8.2)
[2016-10-07] MEDS ORDERED: FUROSEMIDE 40 MG TABLET (FP) PO SCH (10:00)
[2016-10-07] MEDS: ISOSORBIDE MONONITRATE 30 MG TAB.SR.24H (FP) PO SCH (10:24)
[2016-10-07] MEDS: ASPIRIN COATED 81 MG TABLET.EC PO SCH (10:24)
[2016-10-07] MEDS: BUDESONIDE/FORMETEROL FUMARATE 80/4.5 mcg INHALER IH SCH ×2 (10:24→22:26)
[2016-10-07] MEDS: METOPROLOL SUCCINATE 25 MG TAB.SR.24H (FP) PO SCH (10:24)
[2016-10-07] MEDS: CITALOPRAM HYDROBROMIDE 20 MG TABLET (FP) PO SCH (10:24)
--- NOTE | 2016-10-07 11:11 | PN ---
Progress Note, Physician Chief Complaint: chf History of Present Illness: denies sob or orthopnea; feels legs/feet definitely swelling more no cp, palpit +cig, cocaine - Current Medication List Current Medications: Active Medications Albuterol Sulfate (Ventolin 0.083% Nebulizer Soln -) 1 amp NEB Q6H PRN PRN Reason: WHEEZING Last Admin: 10/06/16 10:33 Dose: 1 amp Aspirin (Ecotrin -) 81 mg PO DAILY [facility] Last Admin: 10/07/16 10:24 Dose: 81 mg Atorvastatin Calcium (Lipitor -) 40 mg PO HS [facility] Last Admin: 10/06/16 21:37 Dose: 40 mg Budesonide/Formoterol Fumarate (Symbicort 80/4.5mcg -) 2 puff IH BID [facility] Last Admin: 10/07/16 10:24 Dose: 2 puff Citalopram Hydrobromide (Celexa -) 20 mg PO DAILY [facility] Last Admin: 10/07/16 10:24 Dose: 20 mg Furosemide (Lasix -) 40 mg PO DAILY [facility] Last Admin: 10/07/16 10:24 Dose: 40 mg Heparin Sodium (Porcine) (Heparin -) 5,000 unit SQ TID [facility] Last Admin: 10/07/16 06:40 Dose: Not Given Hydralazine HCl (Apresoline -) 20 mg PO TID [facility] Last Admin: 10/07/16 06:36 Dose: 20 mg Insulin Aspart (Novolog Vial Sliding Scale -) 1 vial SQ TIDAC [facility] PRN Reason: Protocol Last Admin: 10/07/16 06:37 Dose: 6 units Insulin Detemir (Levemir Vial) 30 units SQ [facility] Last Admin: 10/06/16 21:37 Dose: 30 units Isosorbide Mononitrate (Imdur -) 30 mg PO DAILY [facility] Last Admin: 10/07/16 10:24 Dose: 30 mg Methylprednisolone Sodium Succinate (Solu-Medrol -) 40 mg IVPB Q6H-IV [facility] Last Admin: 10/07/16 10:25 Dose: 40 mg Metoprolol Succinate (Toprol Xl -) 25 mg PO DAILY [facility] Last Admin: 10/07/16 10:24 Dose: 25 mg - Objective Vital Signs: Vital Signs Temperature 97.6 F 10/07/16 06:00 Pulse Rate 93 H 10/07/16 06:00 Respiratory Rate 20 10/07/16 06:00 Blood Pressure 143/94 10/07/16 06:00 O2 Sat by Pulse Oximetry (%) 98 10/06/16 21:00 Constitutional: Yes: No Distress, Calm, Obese Eyes: No: Sclera Icterus HENT: No: Nasal Congestion Cardiovascular: Yes: Regular Rate and Rhythm, JVD (to jaw (L neck--tds)), S1, S2 , Other (PMI non diplaced). No: Gallop, Murmur Respiratory: Yes: CTA Bilaterally. No: Accessory Muscle Use, Rales, Wheezes Gastrointestinal: Yes: Normal Bowel Sounds, Soft. No: Tenderness Musculoskeletal: Yes: Other (No kyphosis) Extremities: No: Cold, Cyanosis Edema: Yes (nonpitting feet) Integumentary: No: Jaundice Neurological: Yes: Alert, Oriented (x3) Psychiatric: No: Agitated Labs: CBC, BMP 10/06/16 05:45 10/07/16 06:45 INR, PTT INR 1.09 (0.82-1.09) 10/03/16 23:00 Assessment/Plan 08/2016 echo: MIld concentric LVH, mod-severely reduced systolic function ( global). Moderately reduced RV systolic function. mild lae. mild-mod MR. Mod TR. RVSP 40-50. 08/2016 persantine stress: small inferior defect with subtle apical reversibility. LV cavity appears dilated with dyskinetic apex. EF 33%. a/p: 51 year old smoker etoh and crack-cocaine user with history of biventricular cardiomyopathy (recent admit 08/2016 with cardiorenal syndrome requiring milrinone for diuresis), COPD/Asthma, HTN, HLD on zocor, R partial nephrectomy for cancer, CKD, IDDM, Hepatitis C s/p harvoni, remote Seizure history, Alcohol abuse, depression chronic back pain who presents with sob Rhabdomyolysis - Elevated CK likely related to dehydration and crack/cocaine use. Worsened after IV lasix, now stopped - Cont gentle hydration with close monitoring of volume status. - close f/u of renal fxn, renal team following biventricular systolic HF and diastolic HF exacerbation: - new dx of cardiomyopathy in August 2016, probable NICM based on stress testing, hi risk for NIKOLE/HD initiation with cath dye load so deferred for now - had cardiorenal syndrome then requiring milrinone for diuresis. D/c meds lasix 80 po bid, kcl, hydralazine. D/c weight 268 lbs. No laurent/arb given ckd. - Current weight below dry weight. Appears dry - IVF now off, creat is at his prior d/c values 08/31 - 10/06: wt trending up 260 to 266 over past 3 days--pt at risk for volume retention given on iv steroids, no signif fluid excess on exam though somewhat TDS--no pulm congestion on CT chest 10/05 - started lasix 40 qd maintenance -last time here required lasix 80 iv TID plus milrinone for adequate diuresis: wt went down 285 to 268 on discharge - 10/07: wt up 271 today, renal fxn worsening despite has not been on diuretics here (only received first dose 40 po lasix this am)--suspect cardiorenal syndrome--start lasix 80 iv x1 today--reassess wt and bun/creat in am, further diuretic recs to follow pending reassessment tomorrow - cont toprol 25 for now--would like bid dosing but defer increase given active bronchospasm - deferring LAURENT/ARB given poor renal fxn with labile creatinines when previously here - cont hydral, nitrates as doing DWAIN on CKD with h/o R partial nephrectomy - now with rhabdo/dehydration. IVF as mentioned above. - renal following a.e. copd with wheezing: -on steroids -per pulm team HTN - stable mostly 140s systolic - cont present meds, consider incr hydral later HL - con't statin COPD - with wheezing still, steroids per per pmd/pulm ETOH/tobacco/crack use - cessation counselled here. s/p recent detox
[2016-10-07] MEDS ORDERED: FUROSEMIDE 40 MG/4 ML INJECTABLE VIAL IVPUSH ONE (11:16)
--- NOTE | 2016-10-07 11:34 | PN ---
Progress Note, Physician Chief Complaint: PULMONARY ALERT,FEELING BETTER,LESS DYSPNEIC,LESS CONGESTED - Current Medication List Current Medications: Active Medications Albuterol Sulfate (Ventolin 0.083% Nebulizer Soln -) 1 amp NEB Q6H PRN PRN Reason: WHEEZING Last Admin: 10/06/16 10:33 Dose: 1 amp Aspirin (Ecotrin -) 81 mg PO DAILY [facility] Last Admin: 10/07/16 10:24 Dose: 81 mg Atorvastatin Calcium (Lipitor -) 40 mg PO HS [facility] Last Admin: 10/06/16 21:37 Dose: 40 mg Budesonide/Formoterol Fumarate (Symbicort 80/4.5mcg -) 2 puff IH BID [facility] Last Admin: 10/07/16 10:24 Dose: 2 puff Citalopram Hydrobromide (Celexa -) 20 mg PO DAILY [facility] Last Admin: 10/07/16 10:24 Dose: 20 mg Heparin Sodium (Porcine) (Heparin -) 5,000 unit SQ TID [facility] Last Admin: 10/07/16 06:40 Dose: Not Given Hydralazine HCl (Apresoline -) 20 mg PO TID [facility] Last Admin: 10/07/16 06:36 Dose: 20 mg Insulin Aspart (Novolog Vial Sliding Scale -) 1 vial SQ TIDAC [facility] PRN Reason: Protocol Last Admin: 10/07/16 06:37 Dose: 6 units Insulin Detemir (Levemir Vial) 30 units SQ HS [facility] Last Admin: 10/06/16 21:37 Dose: 30 units Isosorbide Mononitrate (Imdur -) 30 mg PO DAILY [facility] Last Admin: 10/07/16 10:24 Dose: 30 mg Methylprednisolone Sodium Succinate (Solu-Medrol -) 40 mg IVPB Q6H-IV [facility] Last Admin: 10/07/16 10:25 Dose: 40 mg Metoprolol Succinate (Toprol Xl -) 25 mg PO DAILY [facility] Last Admin: 10/07/16 10:24 Dose: 25 mg - Objective Vital Signs: Vital Signs Temperature 97.6 F 10/07/16 06:00 Pulse Rate 93 H 10/07/16 06:00 Respiratory Rate 20 10/07/16 06:00 Blood Pressure 143/94 10/07/16 06:00 O2 Sat by Pulse Oximetry (%) 98 10/06/16 21:00 Constitutional: Yes: Well Nourished, Calm Eyes: Yes: WNL HENT: Yes: WNL Neck: Yes: WNL Cardiovascular: Yes: Regular Rate and Rhythm, S1, S2 Respiratory: Yes: Wheezes (LESS WHEEZES TERELL) Gastrointestinal: Yes: Normal Bowel Sounds, Soft Extremities: Yes: WNL Edema: Yes Labs: CBC, BMP 10/06/16 05:45 10/07/16 06:45 INR, PTT INR 1.09 (0.82-1.09) 10/03/16 23:00 Problem List - Problems (1) CHF (congestive heart failure) Code(s): I50.9 - HEART FAILURE, UNSPECIFIED Qualifiers: Congestive heart failure type: unspecified congestive heart failure type Congestive heart failure chronicity: acute on chronic Qualified Code(s): I50.9 - Heart failure, unspecified (2) COPD (chronic obstructive pulmonary disease) Code(s): J44.9 - CHRONIC OBSTRUCTIVE PULMONARY DISEASE, UNSPECIFIED Qualifiers : COPD type: unspecified COPD Qualified Code(s): J44.9 - Chronic obstructive pulmonary disease, unspecified (3) Alcohol dependence with uncomplicated withdrawal Code(s): F10.230 - ALCOHOL DEPENDENCE WITH WITHDRAWAL, UNCOMPLICATED (4) Chronic kidney disease (CKD) stage G3a/A3, moderately decreased glomerular filtration rate (GFR) between 45-59 mL/min/1.73 square meter and albuminuria creatinine ratio greater than 300 mg/g Code(s): N18.3 - CHRONIC KIDNEY DISEASE, STAGE 3 (MODERATE) (5) Cocaine dependence, uncomplicated Code(s): F14.20 - COCAINE DEPENDENCE, UNCOMPLICATED (6) Edema Code(s): R60.9 - EDEMA, UNSPECIFIED Qualifiers: Edema type: generalized Qualified Code(s): R60.1 - Generalized edema (7) Nicotine dependence Code(s): F17.200 - NICOTINE DEPENDENCE, UNSPECIFIED, UNCOMPLICATED Qualifiers : Nicotine product type: cigarettes Substance use status: uncomplicated Qualified Code(s): F17.210 - Nicotine dependence, cigarettes, uncomplicated (8) Asthma Code(s): J45.909 - UNSPECIFIED ASTHMA, UNCOMPLICATED Qualifiers: Asthma severity: mild intermittent Asthma complication type: uncomplicated Qualified Code(s): J45.20 - Mild intermittent asthma, uncomplicated (9) HTN (hypertension) Code(s): I10 - ESSENTIAL (PRIMARY) HYPERTENSION Qualifiers: Hypertension type: essential hypertension Qualified Code(s): I10 - Essential (primary) hypertension (10) Hepatitis C Code(s): B19.20 - UNSPECIFIED VIRAL HEPATITIS C WITHOUT HEPATIC COMA Qualifiers: Viral hepatitis chronicity: unspecified Hepatic coma status: without hepatic coma Qualified Code(s): B19.20 - Unspecified viral hepatitis C without hepatic coma (11) Obesities, morbid Code(s): E66.01 - MORBID (SEVERE) OBESITY DUE TO EXCESS CALORIES Qualifiers: Obesity type: unspecified obesity type Qualified Code(s): E66.01 - Morbid (severe) obesity due to excess calories (12) Type II diabetes mellitus Code(s): E11.9 - TYPE 2 DIABETES MELLITUS WITHOUT COMPLICATIONS (13) COPD with asthma Code(s): J44.9 - CHRONIC OBSTRUCTIVE PULMONARY DISEASE, UNSPECIFIED J45.909 - UNSPECIFIED ASTHMA, UNCOMPLICATED Assessment/Plan IMP COPD/ASTHMA EXACERBATION URI MEDIASTINAL ADENOPATHY ?REACTIVE, ? SARCOID,? MALIGNANT CHF CKD H/O RENAL CELL CA S/P NEPHRECTOMY HTN DM LIKELY OSAS H/O HEP C PLAN IV STEROIDS START TAPER 40mgQ8 INHALED BRONCHODILATORS NASAL O2 ANTIBIOTICS PFTS OUTPATIENT SMOKING CESSATION COUNSELED SLEEP STUDIES OUTPATIENT F/U CHEST CT OUTPATIENT IF NO CHANGE MED ADENOPATHY CONSIDER PET AND MEDIASTINOSCOPY LAURENT LEVEL OUTPATIENT LASIX PRN DR HELTON Problem List - Problems (1) CHF (congestive heart failure) Code(s): I50.9 - HEART FAILURE, UNSPECIFIED Qualifiers: Congestive heart failure type: unspecified congestive heart failure type Congestive heart failure chronicity: acute on chronic Qualified Code(s): I50.9 - Heart failure, unspecified (2) COPD (chronic obstructive pulmonary disease) Code(s): J44.9 - CHRONIC OBSTRUCTIVE PULMONARY DISEASE, UNSPECIFIED Qualifiers : COPD type: unspecified COPD Qualified Code(s): J44.9 - Chronic obstructive pulmonary disease, unspecified (3) Alcohol dependence with uncomplicated withdrawal Code(s): F10.230 - ALCOHOL DEPENDENCE WITH WITHDRAWAL, UNCOMPLICATED (4) Chronic kidney disease (CKD) stage G3a/A3, moderately decreased glomerular filtration rate (GFR) between 45-59 mL/min/1.73 square meter and albuminuria creatinine ratio greater than 300 mg/g Code(s): N18.3 - CHRONIC KIDNEY DISEASE, STAGE 3 (MODERATE) (5) Cocaine dependence, uncomplicated Code(s): F14.20 - COCAINE DEPENDENCE, UNCOMPLICATED (6) Edema Code(s): R60.9 - EDEMA, UNSPECIFIED Qualifiers: Edema type: generalized Qualified Code(s): R60.1 - Generalized edema (7) Nicotine dependence Code(s): F17.200 - NICOTINE DEPENDENCE, UNSPECIFIED, UNCOMPLICATED Qualifiers : Nicotine product type: cigarettes Substance use status: uncomplicated Qualified Code(s): F17.210 - Nicotine dependence, cigarettes, uncomplicated (8) Asthma Code(s): J45.909 - UNSPECIFIED ASTHMA, UNCOMPLICATED Qualifiers: Asthma severity: mild intermittent Asthma complication type: uncomplicated Qualified Code(s): J45.20 - Mild intermittent asthma, uncomplicated (9) HTN (hypertension) Code(s): I10 - ESSENTIAL (PRIMARY) HYPERTENSION Qualifiers: Hypertension type: essential hypertension Qualified Code(s): I10 - Essential (primary) hypertension (10) Hepatitis C Code(s): B19.20 - UNSPECIFIED VIRAL HEPATITIS C WITHOUT HEPATIC COMA Qualifiers: Viral hepatitis chronicity: unspecified Hepatic coma status: without hepatic coma Qualified Code(s): B19.20 - Unspecified viral hepatitis C without hepatic coma (11) Obesities, morbid Code(s): E66.01 - MORBID (SEVERE) OBESITY DUE TO EXCESS CALORIES Qualifiers: Obesity type: unspecified obesity type Qualified Code(s): E66.01 - Morbid (severe) obesity due to excess calories (12) Type II diabetes mellitus Code(s): E11.9 - TYPE 2 DIABETES MELLITUS WITHOUT COMPLICATIONS (13) COPD with asthma Code(s): J44.9 - CHRONIC OBSTRUCTIVE PULMONARY DISEASE, UNSPECIFIED J45.909 - UNSPECIFIED ASTHMA, UNCOMPLICATED
--- NOTE | 2016-10-07 16:08 | PN ---
Progress Note (short form) - Note Progress Note: Subjective: The patient was seen and examined at the bedside, he reports feeling tightness in his ankles Lasix 80mg IVP today Solumedrol decreased Current Medications Generic Name Dose Route Start Last Admin Trade Name Freq PRN Reason Stop Dose Admin Albuterol Sulfate 1 amp 10/04/16 02:23 10/06/16 10:33 Ventolin 0.083% Nebulizer Soln - NEB 1 amp Q6H PRN Administration WHEEZING Aspirin 81 mg 10/04/16 10:00 10/07/16 10:24 Ecotrin - PO 81 mg DAILY [facility] Administration Atorvastatin Calcium 40 mg 10/04/16 22:00 10/06/16 21:37 Lipitor - PO 40 mg HS [facility]API Administration Budesonide/Formoterol Fumarate 2 puff 10/04/16 10:00 10/07/16 10:24 Symbicort 80/4.5mcg - IH 2 puff BID [facility] Administration Citalopram Hydrobromide 20 mg 10/04/16 10:45 10/07/16 10:24 Celexa - PO 20 mg DAILY [facility] Administration Heparin Sodium (Porcine) 5,000 unit 10/05/16 14:00 10/07/16 14:55 Heparin - SQ 5,000 unit TID PAPI Administration Hydralazine HCl 20 mg 10/04/16 06:00 10/07/16 15:57 Apresoline - PO 20 mg TID PAPI Administration Insulin Aspart 1 vial 10/04/16 07:00 10/07/16 12:27 Novolog Vial Sliding Scale - SQ 8 units TIDAC [facility] Administration Protocol Insulin Detemir 30 units 10/04/16 22:00 10/06/16 21:37 Levemir Vial SQ 30 units HS [facility]API Administration Isosorbide Mononitrate 30 mg 10/07/16 10:00 10/07/16 10:24 Imdur - PO 30 mg DAILY [facility] Administration Methylprednisolone Sodium Succinate 40 mg 10/06/16 15:00 10/07/16 15:55 Solu-Medrol - IVPB 10/08/16 03:00 40 mg Q6H-IV [facility] Administration Methylprednisolone Sodium Succinate 40 mg 10/08/16 04:00 Solu-Medrol - IVPB Q8H-IV [facility] Metoprolol Succinate 25 mg 10/05/16 10:00 10/07/16 10:24 Toprol Xl - PO 25 mg DAILY P[facility] Administration Objective: Vital Signs Period Temp Pulse Resp BP Sys/Zhou Pulse Ox Last 24 Hr 97.6 F-98.8 F 93-99 18-24 139-147/88-94 98 Physical Exam: General: NAD, A&Ox3 HEENT: Right eye strabismus Lungs: B/l end expiratory wheezing, improving Heart: RRR, S1S2 Abd: Soft, non-tender, non-distended. Normoactive bowel sounds Ext: Warm, well-perfused. 2+ B/l lower extremity edema. 2+ DP/PT bilaterally CBCD WBC 9.0 K/mm3 (4.0-10.0) 10/06/16 05:45 RBC 4.43 M/mm3 (4.00-5.60) 10/06/16 05:45 Hgb 11.0 GM/dL (11.7-16.9) L 10/06/16 05:45 Hct 34.3 % (35.4-49) L 10/06/16 05:45 MCV 77.5 fl (80-96) L 10/06/16 05:45 MCHC 32.1 g/dl (32.0-35.9) 10/06/16 05:45 RDW 14.8 % (11.9-15.9) 10/06/16 05:45 Plt Count 416 K/MM3 (134-434) 10/06/16 05:45 MPV 7.9 fl (7.5-11.1) 10/06/16 05:45 CMP Sodium 137 mmol/L (136-145) 10/07/16 06:45 Potassium 4.5 mmol/L (3.5-5.1) 10/07/16 06:45 Chloride 104 mmol/L (98-107) 10/07/16 06:45 Carbon Dioxide 25 mmol/L (21-32) 10/07/16 06:45 Anion Gap 8 (8-16) 10/07/16 06:45 BUN 43 mg/dL (7-18) H D 10/07/16 06:45 Creatinine 3.3 mg/dL (0.7-1.3) H 10/07/16 06:45 Creat Clearance w eGFR 19.78 (>60) 10/07/16 06:45 Random Glucose 230 mg/dL (74-106) H 10/07/16 06:45 Calcium 8.0 mg/dL (8.5-10.1) L 10/07/16 06:45 Total Bilirubin 0.3 mg/dL (0.2-1.0) D 10/07/16 06:45 AST 19 U/L (15-37) D 10/07/16 06:45 ALT 30 U/L (12-78) 10/07/16 06:45 Alkaline Phosphatase 96 U/L (45-117) 10/07/16 06:45 Total Protein 6.6 g/dl (6.4-8.2) 10/07/16 06:45 Albumin 2.8 g/dl (3.4-5.0) L 10/07/16 06:45 CARDIAC ENZYMES Creatine Kinase 481 IU/L (39-308) H D 10/07/16 06:45 Troponin I 0.05 ng/ml (0.00-0.05) 10/04/16 11:45 Microbiology 10/03/16 23:14 Blood - Peripheral Venous Blood Culture - Preliminary NO GROWTH OBTAINED AFTER 72 HOURS, INCUBATION TO CONTINUE FOR 2 DAYS. 10/03/16 23:14 Blood - Peripheral Venous Blood Culture - Preliminary NO GROWTH OBTAINED AFTER 72 HOURS, INCUBATION TO CONTINUE FOR 2 DAYS. 10/03/16 23:00 Nasopharyngeal Swab Influenza Types A,B Antigen (JR) - Final 10/03/16 23:00 Nasopharyngeal Swab - Final Assessment: This is a 51 year old male with PMHx of COPD/asthma, HTN, HLD, CAD, CHF, R kidney resection, CKD, Hep C, ETOH, DM, GERD, chronic back pain, crack/ cocaine abuse who presented to the ED with SOB, cough, fever, chills x 3 days Plan: 1) Pulmonary: Acute on Chronic COPD exacerbation - Continue Solu-medrol 40mg q8h - Continue Albuterol nebs - Continue Symbicort - Chest CT with moderate mediastinal lymphadenopathy, increased since 2011. Will need follow-up outpatient CT chest in 4 weeks, if no change then will consider PET as outpt - Chest X-ray with no evidence of CHF, pulmonary infiltrates, pneuothorax, pleural effusions - Appreciate pulmonary consult 2) Cardiology: biventricular systolic heart failure and diastolic heart failure exacerbation - Weight slightly up today, worsening renal function - Lasix 80mg IVP today - Continue Toprol XL - Hold off on giving lita/arb given the patient's renal function - New diagnosis of cardiomyopathy in August - Strict I&O - Daily weights - Appreciate cardiology consult HTN - Continue home medications HLD - Continue statin Prolonged QTc - Decreased Celexa to 20mg po daily, continue to taper - F/u psych consult for further recommendations 3) : CKD stage 4 with rhabdomyolysis - Renal function slightly better than prior admission - CK continues to trend down - Appreciate nephrology consult 4) Psych: ETOH, crack/cocaine abuse 5) Endocrine: IDDM - BGM ACHS - ISS ACHS - Continue Levemir 6) F/E/N: - Diabetic, low sodium diet - Monitor electrolytes 7) Prophylaxis: - Heparin 5,000u sq tid 8) Dispo: - Requires continued inpatient care CODE STATUS: FULL CODE Visit type - Emergency Visit Emergency Visit: Yes ED Registration Date: 10/04/16 Care time: The patient presented to the Emergency Department on the above date and was hospitalized for further evaluation of their emergent condition. - New Patient This patient is new to me today: No - Critical Care Critical Care patient: No
[2016-10-07] MEDS ORDERED: PT OWN MED DRAWER 7, Y5N ONE (20:31)
[2016-10-07] MEDS: ATORVASTATIN CA 40 MG TABLET (FP) PO SCH (22:25)
[2016-10-07] MEDS: INSULIN DETEMIR 100 UNITS/ML MDV SQ SCH (22:26)
[2016-10-08] MEDS: methylPREDNISolone NA SUCC 40 MG/1 ML VIAL IVPB SCH ×4 (03:55→21:52)
[2016-10-08] MEDS: hydrALAZINE HCL 10 MG TABLET PO SCH ×3 (06:42→21:50)
[2016-10-08] MEDS: HEPARIN NA (PORCINE) 5,000 UNITS/ML 1ML VIAL SQ SCH ×3 (06:42→21:55)
[2016-10-08] MEDS: INSULIN SLIDING SCALE (NOVOLOG) 1 VIAL SQ SCH ×3 (06:43→17:34)
[2016-10-08 07:46] LABS: MCH 25.4 pg (25.7-33.7); MCHC 32.7 g/dl (32.0-35.9); MEAN CELL VOLUME 77.6 fl (80-96); MEAN PLT VOLUME 7.7 fl (7.5-11.1); PLATELET COUNT 452 K/MM3 (134-434); RDW 14.9 % (11.9-15.9)
--- NOTE | 2016-10-08 08:23 | PN ---
Progress Note, Physician Chief Complaint: chf History of Present Illness: no sob or orthopnea; feels feet/ankles swollen still, no better vs yesterday wheezing stopped no cp, palpit + cigs - Current Medication List Current Medications: Active Medications Albuterol Sulfate (Ventolin 0.083% Nebulizer Soln -) 1 amp NEB Q6H PRN PRN Reason: WHEEZING Last Admin: 10/06/16 10:33 Dose: 1 amp Aspirin (Ecotrin -) 81 mg PO DAILY [facility] Last Admin: 10/07/16 10:24 Dose: 81 mg Atorvastatin Calcium (Lipitor -) 40 mg PO HS [facility] Last Admin: 10/07/16 22:25 Dose: 40 mg Budesonide/Formoterol Fumarate (Symbicort 80/4.5mcg -) 2 puff IH BID [facility] Last Admin: 10/07/16 22:26 Dose: 2 puff Citalopram Hydrobromide (Celexa -) 20 mg PO DAILY [facility] Last Admin: 10/07/16 10:24 Dose: 20 mg Heparin Sodium (Porcine) (Heparin -) 5,000 unit SQ TID [facility] Last Admin: 10/08/16 06:42 Dose: Not Given Hydralazine HCl (Apresoline -) 20 mg PO TID [facility] Last Admin: 10/08/16 06:42 Dose: 20 mg Insulin Aspart (Novolog Vial Sliding Scale -) 1 vial SQ TIDAC [facility] PRN Reason: Protocol Last Admin: 10/08/16 06:43 Dose: 4 units Insulin Detemir (Levemir Vial) 30 units SQ HS [facility] Last Admin: 10/07/16 22:26 Dose: 30 units Isosorbide Mononitrate (Imdur -) 30 mg PO DAILY [facility] Last Admin: 10/07/16 10:24 Dose: 30 mg Methylprednisolone Sodium Succinate (Solu-Medrol -) 40 mg IVPB Q8H-IV [facility] Last Admin: 10/08/16 04:36 Dose: 40 mg Metoprolol Succinate (Toprol Xl -) 25 mg PO DAILY [facility] Last Admin: 10/07/16 10:24 Dose: 25 mg - Objective Vital Signs: Vital Signs Temperature 98.0 F 10/08/16 06:00 Pulse Rate 94 H 10/08/16 06:00 Respiratory Rate 20 10/08/16 06:00 Blood Pressure 148/96 10/08/16 06:00 O2 Sat by Pulse Oximetry (%) 97 10/07/16 21:00 Constitutional: Yes: No Distress, Calm, Obese Eyes: No: Sclera Icterus HENT: No: Nasal Congestion Cardiovascular: Yes: Regular Rate and Rhythm, JVD ((L neck visible--TDS)), S1, S2, Other (PMI non diplaced). No: Gallop, Murmur Respiratory: Yes: Regular, CTA Bilaterally. No: Accessory Muscle Use, Rales, Wheezes Gastrointestinal: Yes: Normal Bowel Sounds, Soft. No: Tenderness Musculoskeletal: Yes: Other (No kyphosis) Extremities: No: Cold Edema: Yes (nonpitting feet) Integumentary: No: Jaundice Neurological: Yes: Alert, Oriented (x3) Psychiatric: No: Agitated Labs: CBC, BMP 10/08/16 07:00 INR, PTT INR 1.09 (0.82-1.09) 10/03/16 23:00 Assessment/Plan 08/2016 echo: MIld concentric LVH, mod-severely reduced systolic function ( global). Moderately reduced RV systolic function. mild lae. mild-mod MR. Mod TR. RVSP 40-50. 08/2016 persantine stress: small inferior defect with subtle apical reversibility. LV cavity appears dilated with dyskinetic apex. EF 33%. a/p: 51 year old smoker etoh and crack-cocaine user with history of biventricular cardiomyopathy (recent admit 08/2016 with cardiorenal syndrome requiring milrinone for diuresis), COPD/Asthma, HTN, HLD on zocor, R partial nephrectomy for cancer, CKD, IDDM, Hepatitis C s/p harvoni, remote Seizure history, Alcohol abuse, depression chronic back pain who presents with sob Rhabdomyolysis - Elevated CK likely related to dehydration and crack/cocaine use. Worsened after IV lasix, now stopped - Cont gentle hydration with close monitoring of volume status. - close f/u of renal fxn, renal team following biventricular systolic HF and diastolic HF exacerbation: - new dx of cardiomyopathy in August 2016, probable NICM based on stress testing, hi risk for NIKOLE/HD initiation with cath dye load so deferred for now - had cardiorenal syndrome then requiring milrinone for diuresis. D/c meds lasix 80 po bid, kcl, hydralazine. D/c weight 268 lbs. No laurent/arb given ckd. - Current weight below dry weight. Appears dry - IVF now off, creat is at his prior d/c values 08/31 - 10/06: wt trending up 260 to 266 over past 3 days--pt at risk for volume retention given on iv steroids, no signif fluid excess on exam though somewhat TDS--no pulm congestion on CT chest 10/05 - started lasix 40 qd maintenance -last time here required lasix 80 iv TID plus milrinone for adequate diuresis: wt went down 285 to 268 on discharge - 10/07: wt up 271 today, renal fxn worsening despite has not been on diuretics here (only received first dose 40 po lasix this am)--suspect cardiorenal syndrome--start lasix 80 iv x1 today--reassess wt and bun/creat in am, further diuretic recs to follow pending reassessment tomorrow -10/08: renal fxn stable; wt up 273; will give metolazone plus lasix 80 today; may need inotrope assistance again if fluid status/renal fxn does not respond appropriately to diuretics - cont toprol 25 for now--would like bid dosing but defer increase given active bronchospasm - deferring LAURENT/ARB given poor renal fxn with labile creatinines when previously here - cont hydral, nitrates as doing DWAIN on CKD with h/o R partial nephrectomy - now with rhabdo/dehydration. IVF as mentioned above. - renal following a.e. copd with wheezing: -on steroids -per pulm team HTN - stable mostly 140s systolic - cont present meds, consider incr hydral later HL - con't statin COPD - with wheezing still, steroids per per pmd/pulm ETOH/tobacco/crack use - cessation counselled here. s/p recent detox
[2016-10-08] MEDS: CITALOPRAM HYDROBROMIDE 20 MG TABLET (FP) PO SCH (09:04)
[2016-10-08] MEDS: ASPIRIN COATED 81 MG TABLET.EC PO SCH (09:04)
[2016-10-08] MEDS: BUDESONIDE/FORMETEROL FUMARATE 80/4.5 mcg INHALER IH SCH ×3 (09:04→22:04)
[2016-10-08] MEDS: METOPROLOL SUCCINATE 25 MG TAB.SR.24H (FP) PO SCH ×2 (09:04→21:51)
[2016-10-08] MEDS: ISOSORBIDE MONONITRATE 30 MG TAB.SR.24H (FP) PO SCH (09:04)
[2016-10-08 09:05] LABS: ALBUMIN 3.1 g/dl (3.4-5.0); BILIRUBIN,TOTAL 0.3 mg/dL (0.2-1.0); CALCIUM 8.7 mg/dL (8.5-10.1); CREATININE 3.2 mg/dL (0.7-1.3); PHOSPHOROUS 4.5 mg/dL (2.5-4.9); TOT PROT 6.9 g/dl (6.4-8.2)
[2016-10-08] MEDS ORDERED: METOLAZONE 2.5 MG TABLET (FP) PO ONE (11:04)
[2016-10-08] MEDS ORDERED: FUROSEMIDE 40 MG/4 ML INJECTABLE VIAL IVPUSH ONE (11:30)
--- NOTE | 2016-10-08 13:37 | PN ---
Physical Exam: SUBJECTIVE: Patient seen and examined at bedside. Feels better, SOB has improved. OBJECTIVE: Vital Signs Period Temp Pulse Resp BP Sys/Zhou Pulse Ox Last 24 Hr 97.3 F-98.0 F 92-96 20-24 138-151/71-96 97 GENERAL: The patient is awake, alert, and fully oriented, in no acute distress. HEAD: Normal with no signs of trauma. EYES: PERRL, extraocular movements intact, sclera anicteric, conjunctiva clear. No ptosis. LUNGS: Diffuse expiratory wheezing HEART: Regular rate and rhythm, S1, S2 without murmur, rub or gallop. ABDOMEN: Soft, nontender, nondistended, normoactive bowel sounds, no guarding, no rebound UPPER EXTREMITIES: 2+ pulses, warm, well-perfused, no edema. LOWER EXTREMITIES: 2+ pulses, warm, well-perfused, 2+ edema NEUROLOGICAL: Cranial nerves II through XII grossly intact. Normal speech, gait not observed. PSYCH: Normal mood, normal affect. Laboratory Results - last 24 hr 10/07/16 10/07/16 10/08/16 17:21 21:02 06:02 WBC RBC Hgb Hct MCV MCHC RDW Plt Count MPV Neutrophils % Lymphocytes % Monocytes % Myelocytes Nucleated RBCs Differential Comment Sodium Potassium Chloride Carbon Dioxide Anion Gap BUN Creatinine Creat Clearance w eGFR POC Glucometer 217 293 253 Random Glucose Calcium Phosphorus Magnesium Total Bilirubin AST ALT Alkaline Phosphatase Total Protein Albumin 10/08/16 10/08/16 10/08/16 07:00 07:00 11:58 WBC 13.0 H D RBC 4.33 Hgb 11.0 L Hct 33.6 L MCV 77.6 L MCHC 32.7 RDW 14.9 Plt Count 452 H MPV 7.7 Neutrophils % 85.0 H Lymphocytes % 11.0 Monocytes % 2.0 L Myelocytes 2 D Nucleated RBCs 1 H Differential Comment Manual diff done Sodium 137 Potassium 4.3 Chloride 102 Carbon Dioxide 24 Anion Gap 11 BUN 46 H Creatinine 3.2 H Creat Clearance w eGFR 20.50 POC Glucometer 354 Random Glucose 244 H Calcium 8.7 Phosphorus 4.5 Magnesium 2.0 Total Bilirubin 0.3 AST 18 ALT 30 Alkaline Phosphatase 88 Total Protein 6.9 Albumin 3.1 L Current Medications Generic Name Dose Route Start Last Admin Trade Name Freq PRN Reason Stop Dose Admin Albuterol Sulfate 1 amp 10/04/16 02:23 10/06/16 10:33 Ventolin 0.083% Nebulizer Soln - NEB 1 amp Q6H PRN Administration WHEEZING Aspirin 81 mg 10/04/16 10:00 10/08/16 09:04 Ecotrin - PO 81 mg DAILY [facility] Administration Atorvastatin Calcium 40 mg 10/04/16 22:00 10/07/16 22:25 Lipitor - PO 40 mg HS [facility]API Administration Budesonide/Formoterol Fumarate 2 puff 10/04/16 10:00 10/08/16 09:05 Symbicort 80/4.5mcg - IH 2 puff BID [facility] Administration Citalopram Hydrobromide 20 mg 10/04/16 10:45 10/08/16 09:04 Celexa - PO 20 mg DAILY [facility] Administration Heparin Sodium (Porcine) 5,000 unit 10/05/16 14:00 10/08/16 06:42 Heparin - SQ Not Given TID [facility]API Hydralazine HCl 20 mg 10/04/16 06:00 10/08/16 06:42 Apresoline - PO 20 mg TID [facility]API Administration Insulin Aspart 1 vial 10/04/16 07:00 10/08/16 12:31 Novolog Vial Sliding Scale - SQ 6 units TIDAC [facility] Administration Protocol Insulin Detemir 30 units 10/04/16 22:00 10/07/16 22:26 Levemir Vial SQ 30 units HS [facility]API Administration Isosorbide Mononitrate 30 mg 10/07/16 10:00 10/08/16 09:04 Imdur - PO 30 mg DAILY [facility] Administration Methylprednisolone Sodium Succinate 40 mg 10/08/16 04:00 10/08/16 09:04 Solu-Medrol - IVPB 40 mg Q8H-IV [facility] Administration Metoprolol Succinate 25 mg 10/08/16 22:00 Toprol Xl - PO BID [facility] ASSESSMENT/PLAN 51 year-old male with a PMH of HTN, HLD, CAD, biventricular heart failure, CKD s /p right kidney resection, and IDDM, admitted for COPD and CHF exacerbation. COPD exacerbation --tapering solumedrol q12h --continue inhalers, nebs Mediastinal lymphadenopathy --10/05 CT chest: moderate mediastinal lymphadenopathy, increased since 2011 --will need follow-up outpatient CT chest in 4 weeks, if no change may need PET Biventricular systolic heart failure and diastolic heart failure exacerbation --08/2016 echo: Mild concentric LVH, mod-severely reduced systolic function ( global). Moderately reduced RV systolic function. mild lae. mild-mod MR. Mod TR. RVSP 40-50. --08/2016 persantine stress: small inferior defect with subtle apical reversibility. LV cavity appears dilated with dyskinetic apex. EF 33%. --BNP 20,000 - Dry weight 121.8kg; weight on admission 122.5kg; today 124.1kg --per cardiology, today gave metalazone 2.5mg and lasix IV 80mg, may need inotrope assistance if fluid status/renal fxn does not respond appropriately to diuretics --continue Toprol XL, hydralazine, isosorbide Hypertension --goal <140/90 --continue Toprol XL, hydralazine, isosorbide Hyperlipidemia --continue Lipitor Prolonged QTc -- decreased Celexa to 20mg po daily Rhabdomyolysis, improving --improved yesterday, but monitor closely since diuretics given today Polystubstance abuse --ETOH, crack/cocaine IDDM --Levemir 30mg qhs --Novolog sliding scale coverage F/E/N Fluids: PO intake adequate Electrolytes: replete as indicated Nutrition: low sodium, diabetic diet DVT prophylaxis: subq heparin, oob, ambulation Dispo: continues to require inpatient care. Full Code. Visit type - Emergency Visit Emergency Visit: Yes ED Registration Date: 10/04/16 Care time: The patient presented to the Emergency Department on the above date and was hospitalized for further evaluation of their emergent condition. - New Patient This patient is new to me today: Yes Date on this admission: 10/08/16 - Critical Care Critical Care patient: No
--- NOTE | 2016-10-08 14:01 | PN ---
[id number] drugs as out patient. Had stopped Lasix on his own. Maintains good urine output. - Current Medication List Current Medications: Active Medications Albuterol Sulfate (Ventolin 0.083% Nebulizer Soln -) 1 amp NEB Q6H PRN PRN Reason: WHEEZING Last Admin: 10/06/16 10:33 Dose: 1 amp Aspirin (Ecotrin -) 81 mg PO DAILY [facility] Last Admin: 10/08/16 09:04 Dose: 81 mg Atorvastatin Calcium (Lipitor -) 40 mg PO HS [facility] Last Admin: 10/07/16 22:25 Dose: 40 mg Budesonide/Formoterol Fumarate (Symbicort 80/4.5mcg -) 2 puff IH BID [facility] Last Admin: 10/08/16 09:05 Dose: 2 puff Citalopram Hydrobromide (Celexa -) 20 mg PO DAILY [facility] Last Admin: 10/08/16 09:04 Dose: 20 mg Heparin Sodium (Porcine) (Heparin -) 5,000 unit SQ TID [facility] Last Admin: 10/08/16 13:46 Dose: 5,000 unit Hydralazine HCl (Apresoline -) 20 mg PO TID [facility] Last Admin: 10/08/16 13:46 Dose: 20 mg Insulin Aspart (Novolog Vial Sliding Scale -) 1 vial SQ TIDAC [facility] PRN Reason: Protocol Last Admin: 10/08/16 12:31 Dose: 6 units Insulin Detemir (Levemir Vial) 30 units SQ [facility] Last Admin: 10/07/16 22:26 Dose: 30 units Isosorbide Mononitrate (Imdur -) 30 mg PO DAILY [facility] Last Admin: 10/08/16 09:04 Dose: 30 mg Methylprednisolone Sodium Succinate (Solu-Medrol -) 40 mg IVPB Q8H-IV [facility] Last Admin: 10/08/16 09:04 Dose: 40 mg Metoprolol Succinate (Toprol Xl -) 25 mg PO BID [facility] - Objective Vital Signs: Vital Signs Temperature 98.0 F 10/08/16 06:00 Pulse Rate 94 H 10/08/16 06:00 Respiratory Rate 20 10/08/16 06:00 Blood Pressure 148/96 10/08/16 06:00 O2 Sat by Pulse Oximetry (%) 97 10/07/16 21:00 Constitutional: Yes: Well Nourished, No Distress, Anxious Eyes: Yes: WNL HENT: Yes: WNL Neck: Yes: WNL Cardiovascular: Yes: WNL Respiratory: Yes: Regular Gastrointestinal: Yes: WNL, Normal Bowel Sounds, Abdomen, Obese Labs: CBC, BMP 10/08/16 07:00 10/08/16 07:00 INR, PTT INR 1.09 (0.82-1.09) 10/03/16 23:00 Problem List - Problems (1) CHF (congestive heart failure) Code(s): I50.9 - HEART FAILURE, UNSPECIFIED Qualifiers: Qualified Code(s): I50.9 - Heart failure, unspecified (2) COPD (chronic obstructive pulmonary disease) Code(s): J44.9 - CHRONIC OBSTRUCTIVE PULMONARY DISEASE, UNSPECIFIED Qualifiers : Qualified Code(s): J44.9 - Chronic obstructive pulmonary disease, unspecified (3) COPD with asthma Code(s): J44.9 - CHRONIC OBSTRUCTIVE PULMONARY DISEASE, UNSPECIFIED J45.909 - UNSPECIFIED ASTHMA, UNCOMPLICATED (4) Chronic kidney disease (CKD) stage G3a/A3, moderately decreased glomerular filtration rate (GFR) between 45-59 mL/min/1.73 square meter and albuminuria creatinine ratio greater than 300 mg/g Code(s): N18.3 - CHRONIC KIDNEY DISEASE, STAGE 3 (MODERATE) (5) Edema Code(s): R60.9 - EDEMA, UNSPECIFIED Qualifiers: Qualified Code(s): R60.1 - Generalized edema (6) Edema extremities Code(s): R60.0 - LOCALIZED EDEMA (7) Heroin dependence Code(s): F11.20 - OPIOID DEPENDENCE, UNCOMPLICATED (8) Nicotine dependence Code(s): F17.200 - NICOTINE DEPENDENCE, UNSPECIFIED, UNCOMPLICATED Qualifiers : Qualified Code(s): F17.210 - Nicotine dependence, cigarettes, uncomplicated (9) Asthma Code(s): J45.909 - UNSPECIFIED ASTHMA, UNCOMPLICATED Qualifiers: Qualified Code(s): J45.20 - Mild intermittent asthma, uncomplicated (10) HTN (hypertension) Code(s): I10 - ESSENTIAL (PRIMARY) HYPERTENSION Qualifiers: Qualified Code(s): I10 - Essential (primary) hypertension (11) Hepatitis C Code(s): B19.20 - UNSPECIFIED VIRAL HEPATITIS C WITHOUT HEPATIC COMA Qualifiers: Qualified Code(s): B19.20 - Unspecified viral hepatitis C without hepatic coma (12) IDDM (insulin dependent diabetes mellitus) Code(s): E11.9 - TYPE 2 DIABETES MELLITUS WITHOUT COMPLICATIONS Z79.4 - PENITENTIARY (CURRENT) USE OF INSULIN (13) MDD (major depressive disorder) Code(s): F32.9 - MAJOR DEPRESSIVE DISORDER, SINGLE EPISODE, UNSPECIFIED (14) Obesities, morbid Code(s): E66.01 - MORBID (SEVERE) OBESITY DUE TO EXCESS CALORIES Qualifiers: Qualified Code(s): E66.01 - Morbid (severe) obesity due to excess calories (15) Substance induced mood disorder Code(s): F19.94 - OTH PSYCHOACTIVE SUBSTANCE USE, UNSP W MOOD DISORDER (16) Type II diabetes mellitus Code(s): E11.9 - TYPE 2 DIABETES MELLITUS WITHOUT COMPLICATIONS Assessment/Plan Patient with advanced Kidney disease. Substance abuse Needs DIST[employer]BUTION [employer]LECTION [employer]PERATOR in the near future. The patient will follow up in the office when discharged. Stephanie Beckett MD
--- NOTE | 2016-10-08 14:19 | PN ---
Progress Note, Physician History of Present Illness: pulmonary alert,feeling better,ambulating well - Current Medication List Current Medications: Active Medications Albuterol Sulfate (Ventolin 0.083% Nebulizer Soln -) 1 amp NEB Q6H PRN PRN Reason: WHEEZING Last Admin: 10/06/16 10:33 Dose: 1 amp Aspirin (Ecotrin -) 81 mg PO DAILY [facility] Last Admin: 10/08/16 09:04 Dose: 81 mg Atorvastatin Calcium (Lipitor -) 40 mg PO HS [facility] Last Admin: 10/07/16 22:25 Dose: 40 mg Budesonide/Formoterol Fumarate (Symbicort 80/4.5mcg -) 2 puff IH BID [facility] Last Admin: 10/08/16 09:05 Dose: 2 puff Citalopram Hydrobromide (Celexa -) 20 mg PO DAILY [facility] Last Admin: 10/08/16 09:04 Dose: 20 mg Heparin Sodium (Porcine) (Heparin -) 5,000 unit SQ TID [facility] Last Admin: 10/08/16 13:46 Dose: 5,000 unit Hydralazine HCl (Apresoline -) 20 mg PO TID [facility] Last Admin: 10/08/16 13:46 Dose: 20 mg Insulin Aspart (Novolog Vial Sliding Scale -) 1 vial SQ TIDAC [facility] PRN Reason: Protocol Last Admin: 10/08/16 12:31 Dose: 6 units Insulin Detemir (Levemir Vial) 30 units SQ HS [facility] Last Admin: 10/07/16 22:26 Dose: 30 units Isosorbide Mononitrate (Imdur -) 30 mg PO DAILY [facility] Last Admin: 10/08/16 09:04 Dose: 30 mg Methylprednisolone Sodium Succinate (Solu-Medrol -) 40 mg IVPB Q8H-IV [facility] Last Admin: 10/08/16 09:04 Dose: 40 mg Metoprolol Succinate (Toprol Xl -) 25 mg PO BID [facility] - Objective Vital Signs: Vital Signs Temperature 98.0 F 10/08/16 06:00 Pulse Rate 92 H 10/08/16 13:30 Respiratory Rate 20 10/08/16 13:30 Blood Pressure 132/92 10/08/16 13:30 O2 Sat by Pulse Oximetry (%) 97 10/07/16 21:00 Constitutional: Yes: Well Nourished, Calm Eyes: Yes: WNL HENT: Yes: WNL Neck: Yes: WNL Cardiovascular: Yes: Regular Rate and Rhythm, S1, S2 Respiratory: Yes: Wheezes (less wheezes) Gastrointestinal: Yes: Normal Bowel Sounds, Soft Extremities: Yes: WNL Edema: Yes Labs: CBC, BMP 10/08/16 07:00 10/08/16 07:00 INR, PTT INR 1.09 (0.82-1.09) 10/03/16 23:00 Problem List - Problems (1) CHF (congestive heart failure) Code(s): I50.9 - HEART FAILURE, UNSPECIFIED Qualifiers: Qualified Code(s): I50.9 - Heart failure, unspecified (2) COPD (chronic obstructive pulmonary disease) Code(s): J44.9 - CHRONIC OBSTRUCTIVE PULMONARY DISEASE, UNSPECIFIED Qualifiers : Qualified Code(s): J44.9 - Chronic obstructive pulmonary disease, unspecified (3) Alcohol dependence with uncomplicated withdrawal Code(s): F10.230 - ALCOHOL DEPENDENCE WITH WITHDRAWAL, UNCOMPLICATED (4) Chronic kidney disease (CKD) stage G3a/A3, moderately decreased glomerular filtration rate (GFR) between 45-59 mL/min/1.73 square meter and albuminuria creatinine ratio greater than 300 mg/g Code(s): N18.3 - CHRONIC KIDNEY DISEASE, STAGE 3 (MODERATE) (5) Cocaine dependence, uncomplicated Code(s): F14.20 - COCAINE DEPENDENCE, UNCOMPLICATED (6) Edema Code(s): R60.9 - EDEMA, UNSPECIFIED Qualifiers: Qualified Code(s): R60.1 - Generalized edema (7) Nicotine dependence Code(s): F17.200 - NICOTINE DEPENDENCE, UNSPECIFIED, UNCOMPLICATED Qualifiers : Qualified Code(s): F17.210 - Nicotine dependence, cigarettes, uncomplicated (8) Asthma Code(s): J45.909 - UNSPECIFIED ASTHMA, UNCOMPLICATED Qualifiers: Qualified Code(s): J45.20 - Mild intermittent asthma, uncomplicated (9) HTN (hypertension) Code(s): I10 - ESSENTIAL (PRIMARY) HYPERTENSION Qualifiers: Qualified Code(s): I10 - Essential (primary) hypertension (10) Hepatitis C Code(s): B19.20 - UNSPECIFIED VIRAL HEPATITIS C WITHOUT HEPATIC COMA Qualifiers: Qualified Code(s): B19.20 - Unspecified viral hepatitis C without hepatic coma (11) Obesities, morbid Code(s): E66.01 - MORBID (SEVERE) OBESITY DUE TO EXCESS CALORIES Qualifiers: Qualified Code(s): E66.01 - Morbid (severe) obesity due to excess calories (12) Type II diabetes mellitus Code(s): E11.9 - TYPE 2 DIABETES MELLITUS WITHOUT COMPLICATIONS (13) COPD with asthma Code(s): J44.9 - CHRONIC OBSTRUCTIVE PULMONARY DISEASE, UNSPECIFIED J45.909 - UNSPECIFIED ASTHMA, UNCOMPLICATED Assessment/Plan IMP COPD/ASTHMA EXACERBATION URI MEDIASTINAL ADENOPATHY ?REACTIVE, ? SARCOID,? MALIGNANT CHF CKD H/O RENAL CELL CA S/P NEPHRECTOMY HTN DM LIKELY OSAS H/O HEP C PLAN IV STEROIDS TAPER [id number] INHALED BRONCHODILATORS NASAL O2 ANTIBIOTICS PFTS OUTPATIENT SMOKING CESSATION COUNSELED SLEEP STUDIES OUTPATIENT F/U CHEST CT OUTPATIENT IF NO CHANGE MED ADENOPATHY CONSIDER PET AND MEDIASTINOSCOPY LAURENT LEVEL OUTPATIENT LASIX PRN DR HELTON Problem List - Problems (1) CHF (congestive heart failure) Code(s): I50.9 - HEART FAILURE, UNSPECIFIED Qualifiers: Congestive heart failure type: unspecified congestive heart failure type Congestive heart failure chronicity: acute on chronic Qualified Code(s): I50.9 - Heart failure, unspecified (2) COPD (chronic obstructive pulmonary disease) Code(s): J44.9 - CHRONIC OBSTRUCTIVE PULMONARY DISEASE, UNSPECIFIED Qualifiers : COPD type: unspecified COPD Qualified Code(s): J44.9 - Chronic obstructive pulmonary disease, unspecified (3) Alcohol dependence with uncomplicated withdrawal Code(s): F10.230 - ALCOHOL DEPENDENCE WITH WITHDRAWAL, UNCOMPLICATED (4) Chronic kidney disease (CKD) stage G3a/A3, moderately decreased glomerular filtration rate (GFR) between 45-59 mL/min/1.73 square meter and albuminuria creatinine ratio greater than 300 mg/g Code(s): N18.3 - CHRONIC KIDNEY DISEASE, STAGE 3 (MODERATE) (5) Cocaine dependence, uncomplicated Code(s): F14.20 - COCAINE DEPENDENCE, UNCOMPLICATED (6) Edema Code(s): R60.9 - EDEMA, UNSPECIFIED Qualifiers: Edema type: generalized Qualified Code(s): R60.1 - Generalized edema (7) Nicotine dependence Code(s): F17.200 - NICOTINE DEPENDENCE, UNSPECIFIED, UNCOMPLICATED Qualifiers : Nicotine product type: cigarettes Substance use status: uncomplicated Qualified Code(s): F17.210 - Nicotine dependence, cigarettes, uncomplicated (8) Asthma Code(s): J45.909 - UNSPECIFIED ASTHMA, UNCOMPLICATED Qualifiers: Asthma severity: mild intermittent Asthma complication type: uncomplicated Qualified Code(s): J45.20 - Mild intermittent asthma, uncomplicated (9) HTN (hypertension) Code(s): I10 - ESSENTIAL (PRIMARY) HYPERTENSION Qualifiers: Hypertension type: essential hypertension Qualified Code(s): I10 - Essential (primary) hypertension (10) Hepatitis C Code(s): B19.20 - UNSPECIFIED VIRAL HEPATITIS C WITHOUT HEPATIC COMA Qualifiers: Viral hepatitis chronicity: unspecified Hepatic coma status: without hepatic coma Qualified Code(s): B19.20 - Unspecified viral hepatitis C without hepatic coma (11) Obesities, morbid Code(s): E66.01 - MORBID (SEVERE) OBESITY DUE TO EXCESS CALORIES Qualifiers: Obesity type: unspecified obesity type Qualified Code(s): E66.01 - Morbid (severe) obesity due to excess calories (12) Type II diabetes mellitus Code(s): E11.9 - TYPE 2 DIABETES MELLITUS WITHOUT COMPLICATIONS (13) COPD with asthma Code(s): J44.9 - CHRONIC OBSTRUCTIVE PULMONARY DISEASE, UNSPECIFIED J45.909 - UNSPECIFIED ASTHMA, UNCOMPLICATED
[2016-10-08] MEDS ORDERED: INSULIN (NOVOLOG) ASPART 100 UNITS/ML 10ML VIAL SQ ONE (20:13)
[2016-10-08] MEDS: ATORVASTATIN CA 40 MG TABLET (FP) PO SCH (21:50)
[2016-10-08] MEDS: INSULIN DETEMIR 100 UNITS/ML MDV SQ SCH (21:55)
[2016-10-08] MEDS ORDERED: PT OWN MED DRAWER 7, Y5N ONE (22:01)
[2016-10-09] MEDS: hydrALAZINE HCL 10 MG TABLET PO SCH ×2 (06:39→14:01)
[2016-10-09] MEDS: INSULIN SLIDING SCALE (NOVOLOG) 1 VIAL SQ SCH ×3 (06:42→17:39)
[2016-10-09] MEDS: HEPARIN NA (PORCINE) 5,000 UNITS/ML 1ML VIAL SQ SCH ×3 (06:42→21:47)
[2016-10-09 07:54] LABS: MCH 24.8 pg (25.7-33.7); MEAN CELL VOLUME 77.7 fl (80-96); MEAN PLT VOLUME 8.1 fl (7.5-11.1); PLATELET COUNT 444 K/MM3 (134-434); WHITE BLOOD COUNT 16.1 K/mm3 (4.0-10.0)
[2016-10-09 08:27] LABS: ALBUMIN 2.8 g/dl (3.4-5.0); CALCIUM 8.5 mg/dL (8.5-10.1); CREATININE 3.3 mg/dL (0.7-1.3); MAGNESIUM 1.8 mg/dL (1.8-2.4); TOT PROT 6.3 g/dl (6.4-8.2)
[2016-10-09 08:32] LABS: BILIRUBIN,TOTAL 0.2 mg/dL (0.2-1.0)
[2016-10-09 11:10] LABS: METAMYELOCYTE 1 % (0-2)
[2016-10-09] MEDS: ISOSORBIDE MONONITRATE 30 MG TAB.SR.24H (FP) PO SCH (11:16)
[2016-10-09] MEDS: CITALOPRAM HYDROBROMIDE 20 MG TABLET (FP) PO SCH (11:16)
[2016-10-09] MEDS: methylPREDNISolone NA SUCC 40 MG/1 ML VIAL IVPB SCH (11:16)
[2016-10-09] MEDS: ASPIRIN COATED 81 MG TABLET.EC PO SCH (11:16)
[2016-10-09] MEDS: BUDESONIDE/FORMETEROL FUMARATE 80/4.5 mcg INHALER IH SCH ×2 (11:17→21:48)
[2016-10-09] MEDS: METOPROLOL SUCCINATE 25 MG TAB.SR.24H (FP) PO SCH ×2 (11:17→21:48)
--- NOTE | 2016-10-09 12:08 | PN ---
Progress Note (short form) - Note Progress Note: PULMONARY Feels well. No shortness of breath, occasional wheezing. No chest pain. Last Vital Signs Temp Pulse Resp BP Pulse Ox 97.7 F 97 H 20 141/94 98 10/09/16 06:00 10/09/16 06:00 10/09/16 06:00 10/09/16 06:00 10/08/16 21:00 Gen: NAD at rest Heart: RRR Lung: clear to auscultation Abd: soft, nontender Ext: no edema CBC, BMP 10/09/16 06:30 10/09/16 06:20 Active Medications Aspirin (Ecotrin -) 81 mg PO DAILY [facility] Last Admin: 10/09/16 11:16 Dose: 81 mg Atorvastatin Calcium (Lipitor -) 40 mg PO [facility] Last Admin: 10/08/16 21:50 Dose: 40 mg Budesonide/Formoterol Fumarate (Symbicort 80/4.5mcg -) 2 puff IH BID [facility] Last Admin: 10/09/16 11:17 Dose: 2 puff Citalopram Hydrobromide (Celexa -) 20 mg PO DAILY [facility] Last Admin: 10/09/16 11:16 Dose: 20 mg Heparin Sodium (Porcine) (Heparin -) 5,000 unit SQ TID [facility] Last Admin: 10/09/16 06:42 Dose: 5,000 unit Hydralazine HCl (Apresoline -) 20 mg PO TID [facility] Last Admin: 10/09/16 06:39 Dose: 20 mg Insulin Aspart (Novolog Vial Sliding Scale -) 1 vial SQ TIDAC [facility] PRN Reason: Protocol Last Admin: 10/09/16 06:42 Dose: Not Given Insulin Detemir (Levemir Vial) 30 units SQ [facility] Last Admin: 10/08/16 21:55 Dose: 30 units Isosorbide Mononitrate (Imdur -) 30 mg PO DAILY [facility] Last Admin: 10/09/16 11:16 Dose: 30 mg Methylprednisolone Sodium Succinate (Solu-Medrol -) 40 mg IVPB BID [facility] Last Admin: 10/09/16 11:16 Dose: Not Given Metoprolol Succinate (Toprol Xl -) 25 mg PO BID [facility] Last Admin: 10/09/16 11:17 Dose: 25 mg A/P Acute COPD Exacerbation LV Diastolic/Systolic Dysfunction Mediastinal Adenopathy CKD Likely SINDY HTN DM Smoker - can change steroids to PO prednisone - inhaled bronchodilators - outpt PFTs, PSG - outpt f/u of CT chest - DVT prophylaxis
[2016-10-09] MEDS ORDERED: ALBUTEROL SO4 6.7 GM HFA INHALER IH PRN (12:10)
--- NOTE | 2016-10-09 12:14 | PN ---
Progress Note, Physician Chief Complaint: Patient seen in bed. Reports feeling better No new complaints Tolerating the current regimen The patient has advanced Kidney failure, and he needs close fu as out patient. Good urine output maintained - Current Medication List Current Medications: Active Medications Albuterol Sulfate (Ventolin Hfa Inhaler -) 2 puff IH Q4H PRN PRN Reason: SHORT OF BREATH/WHEEZING Aspirin (Ecotrin -) 81 mg PO DAILY [facility] Last Admin: 10/09/16 11:16 Dose: 81 mg Atorvastatin Calcium (Lipitor -) 40 mg PO HS [facility] Last Admin: 10/08/16 21:50 Dose: 40 mg Budesonide/Formoterol Fumarate (Symbicort 80/4.5mcg -) 2 puff IH BID [facility] Last Admin: 10/09/16 11:17 Dose: 2 puff Citalopram Hydrobromide (Celexa -) 20 mg PO DAILY [facility] Last Admin: 10/09/16 11:16 Dose: 20 mg Heparin Sodium (Porcine) (Heparin -) 5,000 unit SQ TID [facility] Last Admin: 10/09/16 06:42 Dose: 5,000 unit Hydralazine HCl (Apresoline -) 20 mg PO TID [facility] Last Admin: 10/09/16 06:39 Dose: 20 mg Insulin Aspart (Novolog Vial Sliding Scale -) 1 vial SQ TIDAC [facility] PRN Reason: Protocol Last Admin: 10/09/16 06:42 Dose: Not Given Insulin Detemir (Levemir Vial) 30 units SQ [facility] Last Admin: 10/08/16 21:55 Dose: 30 units Isosorbide Mononitrate (Imdur -) 30 mg PO DAILY [facility] Last Admin: 10/09/16 11:16 Dose: 30 mg Metoprolol Succinate (Toprol Xl -) 25 mg PO BID [facility] Last Admin: 10/09/16 11:17 Dose: 25 mg Prednisone (Deltasone -) 40 mg PO DAILY [facility] - Objective Vital Signs: Vital Signs Temperature 97.7 F 10/09/16 06:00 Pulse Rate 97 H 10/09/16 06:00 Respiratory Rate 20 10/09/16 06:00 Blood Pressure 141/94 10/09/16 06:00 O2 Sat by Pulse Oximetry (%) 98 10/08/16 21:00 Labs: CBC, BMP 10/09/16 06:30 10/09/16 06:20 INR, PTT INR 1.09 (0.82-1.09) 10/03/16 23:00 Problem List - Problems (1) CHF (congestive heart failure) Code(s): I50.9 - HEART FAILURE, UNSPECIFIED Qualifiers: Qualified Code(s): I50.9 - Heart failure, unspecified (2) COPD (chronic obstructive pulmonary disease) Code(s): J44.9 - CHRONIC OBSTRUCTIVE PULMONARY DISEASE, UNSPECIFIED Qualifiers : Qualified Code(s): J44.9 - Chronic obstructive pulmonary disease, unspecified (3) COPD with asthma Code(s): J44.9 - CHRONIC OBSTRUCTIVE PULMONARY DISEASE, UNSPECIFIED J45.909 - UNSPECIFIED ASTHMA, UNCOMPLICATED (4) Chronic kidney disease (CKD) stage G3a/A3, moderately decreased glomerular filtration rate (GFR) between 45-59 mL/min/1.73 square meter and albuminuria creatinine ratio greater than 300 mg/g Code(s): N18.3 - CHRONIC KIDNEY DISEASE, STAGE 3 (MODERATE) (5) Edema Code(s): R60.9 - EDEMA, UNSPECIFIED Qualifiers: Qualified Code(s): R60.1 - Generalized edema (6) Edema extremities Code(s): R60.0 - LOCALIZED EDEMA (7) Heroin dependence Code(s): F11.20 - OPIOID DEPENDENCE, UNCOMPLICATED (8) Nicotine dependence Code(s): F17.200 - NICOTINE DEPENDENCE, UNSPECIFIED, UNCOMPLICATED Qualifiers : Qualified Code(s): F17.210 - Nicotine dependence, cigarettes, uncomplicated (9) Asthma Code(s): J45.909 - UNSPECIFIED ASTHMA, UNCOMPLICATED Qualifiers: Qualified Code(s): J45.20 - Mild intermittent asthma, uncomplicated (10) HTN (hypertension) Code(s): I10 - ESSENTIAL (PRIMARY) HYPERTENSION Qualifiers: Qualified Code(s): I10 - Essential (primary) hypertension (11) Hepatitis C Code(s): B19.20 - UNSPECIFIED VIRAL HEPATITIS C WITHOUT HEPATIC COMA Qualifiers: Qualified Code(s): B19.20 - Unspecified viral hepatitis C without hepatic coma (12) IDDM (insulin dependent diabetes mellitus) Code(s): E11.9 - TYPE 2 DIABETES MELLITUS WITHOUT COMPLICATIONS Z79.4 - LONGTERM (CURRENT) USE OF INSULIN (13) MDD (major depressive disorder) Code(s): F32.9 - MAJOR DEPRESSIVE DISORDER, SINGLE EPISODE, UNSPECIFIED (14) Obesities, morbid Code(s): E66.01 - MORBID (SEVERE) OBESITY DUE TO EXCESS CALORIES Qualifiers: Qualified Code(s): E66.01 - Morbid (severe) obesity due to excess calories (15) Substance induced mood disorder Code(s): F19.94 - OTH PSYCHOACTIVE SUBSTANCE USE, UNSP W MOOD DISORDER (16) Type II diabetes mellitus Code(s): E11.9 - TYPE 2 DIABETES MELLITUS WITHOUT COMPLICATIONS Assessment/Plan Patient with advanced Kidney disease. H/o Substance abuse Needs LACROSSE COACH in the near future. Detailed the need for LACROSSE COACH Also reiterated the importance of Diet, Sodium, Medications The patient will follow up in the office when discharged. Stephanie Beckett MD
--- NOTE | 2016-10-09 12:40 | PN ---
Progress Note (short form) - Note Progress Note: Chief Complaint: chf History of Present Illness: no sob or orthopnea; feels feet/ankles swollen still, but improvement since yesterday, after lasix 80 mg IV x 1 and metolazone 2.5 mg PO x 1. sob/wheezing resolved despite increasing lasix to bid yesterday. no cp, palpit + cigs Current Medications Albuterol Sulfate (Ventolin Hfa Inhaler -) 2 puff IH Q4H PRN PRN Reason: SHORT OF BREATH/WHEEZING Aspirin (Ecotrin -) [address] [facility] Last Admin: 10/09/16 11:16 Dose: 81 mg Atorvastatin Calcium (Lipitor -) [address] [facility] Last Admin: 10/08/16 21:50 Dose: 40 mg Budesonide/Formoterol Fumarate (Symbicort 80/4.5mcg -) [address] [facility] Last Admin: 10/09/16 11:17 Dose: 2 puff Citalopram Hydrobromide (Celexa -) [address] [facility] Last Admin: 10/09/16 11:16 Dose: 20 mg Heparin Sodium (Porcine) (Heparin -) 5,[address] [facility] Last Admin: 10/09/16 06:42 Dose: 5,000 unit Hydralazine HCl (Apresoline -) [address] [facility] Last Admin: 10/09/16 06:39 Dose: 20 mg Insulin Aspart (Novolog Vial Sliding Scale -) [address] [facility] PRN Reason: Protocol Last Admin: 10/09/16 12:32 Dose: 4 units Insulin Detemir (Levemir Vial) 30 units SQ [facility] Last Admin: 10/08/16 21:55 Dose: 30 units Isosorbide Mononitrate (Imdur -) [address] [facility] Last Admin: 10/09/16 11:16 Dose: 30 mg Metoprolol Succinate (Toprol Xl -) [address] [facility] Last Admin: 10/09/16 11:17 Dose: 25 mg Prednisone (Deltasone -) [address] [facility] Vital Signs - 24 hr 10/08/16 10/08/16 10/08/16 13:30 14:31 21:00 Temperature 98.4 F Pulse Rate 92 H 94 H Respiratory 20 20 Rate Blood Pressure 132/92 153/86 O2 Sat by Pulse 98 Oximetry (%) 10/08/16 10/09/16 21:25 06:00 Temperature 97.5 F L 97.7 F Pulse Rate 93 H 97 H Respiratory 20 20 Rate Blood Pressure 140/93 141/94 O2 Sat by Pulse Oximetry (%) Intake & Output 10/07/16 10/08/16 10/09/16 10/10/16 07:59 07:59 07:59 07:59 Intake Total 700 1415 1500 350 Balance 700 1415 1500 350 Weight 271 lb 9.6 oz 273 lb 9 oz 270 lb 7 oz Constitutional: Yes: No Distress, Calm, Obese Eyes: No: Sclera Icterus HENT: No: Nasal Congestion Cardiovascular: Yes: Regular Rate and Rhythm, JVD ((L neck visible--TDS)), S1, S2, Other (PMI non diplaced). No: Gallop, Murmur Respiratory: Yes: Regular, CTA Bilaterally. No: Accessory Muscle Use, Rales, Wheezes Gastrointestinal: Yes: Normal Bowel Sounds, Soft. No: Tenderness Musculoskeletal: Yes: Other (No kyphosis) Extremities: No: Cold Edema: Yes (nonpitting feet) Integumentary: No: Jaundice Neurological: Yes: Alert, Oriented (x3) Psychiatric: No: Agitated Labs: CBC, BMP 10/09/16 06:30 10/09/16 06:20 Assessment/Plan 08/2016 echo: MIld concentric LVH, mod-severely reduced systolic function ( global). Moderately reduced RV systolic function. mild lae. mild-mod MR. Mod TR. RVSP 40-50. 08/2016 persantine stress: small inferior defect with subtle apical reversibility. LV cavity appears dilated with dyskinetic apex. EF 33%. a/p: 51 year old smoker etoh and crack-cocaine user with history of biventricular cardiomyopathy (recent admit 08/2016 with cardiorenal syndrome requiring milrinone for diuresis), COPD/Asthma, HTN, HLD on zocor, R partial nephrectomy for cancer, CKD, IDDM, Hepatitis C s/p harvoni, remote Seizure history, Alcohol abuse, depression chronic back pain who presents with sob Rhabdomyolysis - Elevated CK likely related to dehydration and crack/cocaine use. Worsened after IV lasix. Now s/p IVF. - renal team following biventricular systolic HF and diastolic HF exacerbation: - new dx of cardiomyopathy in August 2016, probable NICM based on stress testing, hi risk for NIKOLE/HD initiation with cath dye load so deferred for now - had cardiorenal syndrome then requiring milrinone for diuresis. D/c meds lasix 80 po bid, kcl, hydralazine. D/c weight 268 lbs. No laurent/arb given ckd. - Current weight below dry weight. Appears dry - IVF now off, creat is at his prior d/c values 08/31 - 10/06: wt trending up 260 to 266 over past 3 days--pt at risk for volume retention given on iv steroids, no signif fluid excess on exam though somewhat TDS--no pulm congestion on CT chest 10/05 - started lasix 40 qd maintenance -last time here required lasix 80 iv TID plus milrinone for adequate diuresis: wt went down 285 to 268 on discharge - 10/07: wt up 271 today, renal fxn worsening despite has not been on diuretics here (only received first dose 40 po lasix this am)--suspect cardiorenal syndrome--start lasix 80 iv x1 today--reassess wt and bun/creat in am, further diuretic recs to follow pending reassessment tomorrow -10/08: renal fxn stable; wt up 273; will give metolazone plus lasix 80 today; may need inotrope assistance again if fluid status/renal fxn does not respond appropriately to diuretics 10/09: wt slightly down today (but close to prior d/c weight which was 268 lbs, and symptomatically improving), will repeat lasix 80 iv x1 and metolazone 2.5. Consider repeat dose of lasix later this evening depending on uop response. - cont toprol 25 bid - deferring LAURENT/ARB given poor renal fxn with labile creatinines when previously here - cont hydral, nitrates, will uptitrate. DWAIN on CKD with h/o R partial nephrectomy - with rhabdo/dehydration. s/p IVF as mentioned above. - renal following a.e. copd with wheezing: -on steroids -per pulm team HTN - stable mostly 140s systolic - will uptitrate medications today 10/09 (increasing hydralazine to 50 mg tid). HL - con't statin COPD - steroids per per pmd/pulm ETOH/tobacco/crack use - cessation counselled here. s/p recent detox
[2016-10-09] MEDS ORDERED: FUROSEMIDE 40 MG/4 ML INJECTABLE VIAL IVPUSH ONE (12:41)
[2016-10-09] MEDS ORDERED: METOLAZONE 2.5 MG TABLET (FP) PO ONE (12:42)
[2016-10-09] MEDS: hydrALAZINE HCL 50 MG TABLET (FP) PO SCH ×2 (14:43→21:47)
--- NOTE | 2016-10-09 18:16 | PN ---
Physical Exam: SUBJECTIVE: Patient seen and examined. OBJECTIVE: Vital Signs Period Temp Pulse Resp BP Sys/Zhou Pulse Ox Last 24 Hr 97.5 F-98.5 F 93-97 20-22 140-156/92-94 98 GENERAL: The patient is awake, alert, and fully oriented, in no acute distress. HEAD: Normal with no signs of trauma. EYES: PERRL, extraocular movements intact, sclera anicteric, conjunctiva clear. No ptosis. LUNGS: Scattered rhonchi on the right, no wheezing HEART: Regular rate and rhythm, S1, S2 without murmur, rub or gallop. ABDOMEN: Soft, nontender, nondistended, normoactive bowel sounds, no guarding, no rebound UPPER EXTREMITIES: 2+ pulses, warm, well-perfused, no edema. LOWER EXTREMITIES: 2+ pulses, warm, well-perfused, 1+ edema mildly improved NEUROLOGICAL: Cranial nerves II through XII grossly intact. Normal speech, steady gait, ambulating hallway PSYCH: Normal mood, normal affect. Laboratory Results - last 24 hr 10/08/16 10/08/16 10/08/16 17:28 18:00 20:07 WBC RBC Hgb Hct MCV MCHC RDW Plt Count MPV Neutrophils % Lymphocytes % Monocytes % Metamyelocytes Myelocytes Differential Comment Sodium Potassium Chloride Carbon Dioxide Anion Gap BUN Creatinine Creat Clearance w eGFR POC Glucometer 450 425 Random Glucose 435 H* D Calcium Magnesium Total Bilirubin AST ALT Alkaline Phosphatase Total Protein Albumin 10/09/16 10/09/16 10/09/16 06:20 06:30 06:39 WBC 16.1 H RBC 4.47 Hgb 11.1 L Hct 34.7 L MCV 77.7 L MCHC 32.0 RDW 15.0 Plt Count 444 H MPV 8.1 Neutrophils % 62.0 D Lymphocytes % 25.0 D Monocytes % 10.0 D Metamyelocytes 1 Myelocytes 2 Differential Comment Manual diff done Sodium 140 Potassium 3.8 Chloride 101 Carbon Dioxide 29 D Anion Gap 10 BUN 45 H Creatinine 3.3 H Creat Clearance w eGFR 19.78 POC Glucometer 129 Random Glucose 121 H D Calcium 8.5 Magnesium 1.8 Total Bilirubin 0.2 D AST 17 ALT 31 Alkaline Phosphatase 84 Total Protein 6.3 L Albumin 2.8 L 10/09/16 10/09/16 12:10 16:56 WBC RBC Hgb Hct MCV MCHC RDW Plt Count MPV Neutrophils % Lymphocytes % Monocytes % Metamyelocytes Myelocytes Differential Comment Sodium Potassium Chloride Carbon Dioxide Anion Gap BUN Creatinine Creat Clearance w eGFR POC Glucometer 253 213 Random Glucose Calcium Magnesium Total Bilirubin AST ALT Alkaline Phosphatase Total Protein Albumin Current Medications Generic Name Dose Route Start Last Admin Trade Name Freq PRN Reason Stop Dose Admin Albuterol Sulfate 2 puff 10/09/16 12:10 Ventolin Hfa Inhaler - IH Q4H PRN SHORT OF BREATH/WHEEZING Aspirin 81 mg 10/04/16 10:00 10/09/16 11:16 Ecotrin - PO 81 mg DAILY [facility]API Administration Atorvastatin Calcium 40 mg 10/04/16 22:00 10/08/16 21:50 Lipitor - PO 40 mg HS [facility]API Administration Budesonide/Formoterol Fumarate 2 puff 10/04/16 10:00 10/09/16 11:17 Symbicort 80/4.5mcg - IH 2 puff BID [facility]API Administration Citalopram Hydrobromide 20 mg 10/04/16 10:45 10/09/16 11:16 Celexa - PO 20 mg DAILY [facility] Administration Heparin Sodium (Porcine) 5,000 unit 10/05/16 14:00 10/09/16 14:10 Heparin - SQ 5,000 unit TID [facility] Administration Hydralazine HCl 50 mg 10/09/16 14:15 10/09/16 14:43 Apresoline - PO 50 mg TID [facility] Administration Insulin Aspart 1 vial 10/04/16 07:00 10/09/16 17:39 Novolog Vial Sliding Scale - SQ 3 units TIDAC [facility] Administration Protocol Insulin Detemir 30 units 10/04/16 22:00 10/08/16 21:55 Levemir Vial SQ 30 units HS [facility] Administration Isosorbide Mononitrate 30 mg 10/07/16 10:00 10/09/16 11:16 Imdur - PO 30 mg DAILY [facility] Administration Metoprolol Succinate 25 mg 10/08/16 22:00 10/09/16 11:17 Toprol Xl - PO 25 mg BID [facility] Administration Prednisone 40 mg 10/10/16 10:00 Deltasone - PO DAILY [facility] Imaging --08/2016 echo: Mild concentric LVH, mod-severely reduced systolic function ( global). Moderately reduced RV systolic function. mild lae. mild-mod MR. Mod TR. RVSP 40-50. --08/2016 persantine stress: small inferior defect with subtle apical reversibility. LV cavity appears dilated with dyskinetic apex. EF 33%. ASSESSMENT/PLAN 51 year-old male with a PMH of HTN, HLD, CAD, biventricular heart failure, CKD s /p right kidney resection, and IDDM, admitted for COPD and CHF exacerbation. COPD exacerbation --convert solumedrol to prednisone 40mg daily --continue inhalers, nebs Mediastinal lymphadenopathy --10/05 CT chest: moderate mediastinal lymphadenopathy, increased since 2011 --will need follow-up outpatient CT chest in 4 weeks, if no change may need PET Biventricular systolic heart failure and diastolic heart failure exacerbation --dry weight 121.8kg; weight today 122.6, down 1.5kg from yesterday --dosed again today lasix 80 IV and metolazone 2.5mg with 900cc UOP response --continue Toprol XL, hydralazine, isosorbide Hypertension --goal <140/90 --continue Toprol XL, isosorbide; hydralazine increased 50mg TID Hyperlipidemia --continue Lipitor Prolonged QTc -- decreased Celexa to 20mg po daily Rhabdomyolysis, improving --repeat CPK in am Polystubstance abuse --ETOH, crack/cocaine IDDM --Levemir 30mg qhs --Novolog sliding scale coverage F/E/N Fluids: PO intake adequate Electrolytes: replete as indicated Nutrition: low sodium, diabetic diet DVT prophylaxis: subq heparin, oob, ambulation Dispo: continues to require inpatient care. Full Code. Visit type - Emergency Visit Emergency Visit: Yes ED Registration Date: 10/04/16 Care time: The patient presented to the Emergency Department on the above date and was hospitalized for further evaluation of their emergent condition. - New Patient This patient is new to me today: No - Critical Care Critical Care patient: No
[2016-10-09] MEDS: INSULIN DETEMIR 100 UNITS/ML MDV SQ SCH (21:47)
[2016-10-09] MEDS: ATORVASTATIN CA 40 MG TABLET (FP) PO SCH (21:47)
[2016-10-10] MEDS: hydrALAZINE HCL 50 MG TABLET (FP) PO SCH ×2 (06:10→14:27)
[2016-10-10] MEDS: INSULIN SLIDING SCALE (NOVOLOG) 1 VIAL SQ SCH ×2 (06:10→14:28)
[2016-10-10] MEDS: HEPARIN NA (PORCINE) 5,000 UNITS/ML 1ML VIAL SQ SCH ×2 (06:11→14:27)
[2016-10-10] MEDS ORDERED: ACETAMINOPHEN 325 MG TABLET (FP) PO ONE (08:15)
[2016-10-10 08:19] LABS: BASOPHIL 0.1 % (0-2.0); EOSINOPHIL 0.3 % (0-4.5); MCHC 32.5 g/dl (32.0-35.9); PLATELET COUNT 457 K/MM3 (134-434); RDW 15.1 % (11.9-15.9); WHITE BLOOD COUNT 17.4 K/mm3 (4.0-10.0)
[2016-10-10] MEDS ORDERED: PT OWN MED DRAWER 7, Y5N ONE (09:36)
[2016-10-10] MEDS: ISOSORBIDE MONONITRATE 30 MG TAB.SR.24H (FP) PO SCH (09:44)
[2016-10-10] MEDS: CITALOPRAM HYDROBROMIDE 20 MG TABLET (FP) PO SCH (09:44)
[2016-10-10] MEDS: METOPROLOL SUCCINATE 25 MG TAB.SR.24H (FP) PO SCH (09:44)
[2016-10-10] MEDS: BUDESONIDE/FORMETEROL FUMARATE 80/4.5 mcg INHALER IH SCH (09:45)
[2016-10-10] MEDS: ASPIRIN COATED 81 MG TABLET.EC PO SCH (09:45)
[2016-10-10 09:57] LABS: ALBUMIN 2.8 g/dl (3.4-5.0); BILIRUBIN,TOTAL 0.2 mg/dL (0.2-1.0); CALCIUM 9.1 mg/dL (8.5-10.1); CREATININE 3.2 mg/dL (0.7-1.3); MAGNESIUM 1.5 mg/dL (1.8-2.4); TOT PROT 6.2 g/dl (6.4-8.2)
[2016-10-10] MEDS ORDERED: predniSONE 20 MG TABLET (UD) PO SCH (10:00)
[2016-10-10] MEDS ORDERED: MAGNESIUM OXIDE 400 MG TABLET (FP) PO ONE (11:00)
[2016-10-10 11:47] LABS: BASOPHIL 0.5 % (0-2.0); EOSINOPHIL 0.4 % (0-4.5); MCH 24.7 pg (25.7-33.7); MCHC 31.9 g/dl (32.0-35.9); MEAN CELL VOLUME 77.3 fl (80-96); MEAN PLT VOLUME 8.1 fl (7.5-11.1); NEUTROPHILS 77.1 % (42.8-82.8); PLATELET COUNT 437 K/MM3 (134-434); RDW 15.1 % (11.9-15.9); WHITE BLOOD COUNT 19.1 K/mm3 (4.0-10.0)
[2016-10-10] MEDS ORDERED: POTASSIUM CHLORIDE TABS 20 MEQ TABLET.ER (FP) PO ONE (12:00)
--- NOTE | 2016-10-10 12:28 | PN ---
Progress Note (short form) - Note Progress Note: Renal Follow up for CKD Pt seen and examined at the bedside reports that he feels much better no sob, chest pain Vital Signs Temperature 98.1 F 10/10/16 10:00 Pulse Rate 79 10/10/16 10:00 Respiratory Rate 20 10/10/16 10:00 Blood Pressure 143/79 10/10/16 10:00 O2 Sat by Pulse Oximetry (%) 98 10/09/16 21:00 Intake & Output 10/07/16 10/08/16 10/09/16 10/10/16 23:59 23:59 23:59 23:59 Intake Total 1465 1550 1190 315 Output Total 3100 200 Balance 1465 1550 -1910 115 Weight 271 lb 9.6 oz 273 lb 9 oz 270 lb 7 oz 270 lb Gen: NAD, awake and alert CVS: RRR, No M/R Lungs: CTA, no rales or wheeze Abd: soft NT/ND Ext: Trace to 1+ edema, no cyanosis or clubbing CBC, BMP 10/10/16 11:43 10/10/16 07:35 Current Medications Albuterol Sulfate (Ventolin Hfa Inhaler -) 2 puff IH Q4H PRN PRN Reason: SHORT OF BREATH/WHEEZING Last Admin: 10/10/16 06:15 Dose: 2 puff Aspirin (Ecotrin -) 81 mg PO DAILY [facility] Last Admin: 10/10/16 09:45 Dose: 81 mg Atorvastatin Calcium (Lipitor -) 40 mg PO HS [facility] Last Admin: 10/09/16 21:47 Dose: 40 mg Budesonide/Formoterol Fumarate (Symbicort 80/4.5mcg -) 2 puff IH BID [facility] Last Admin: 10/10/16 09:45 Dose: 2 puff Citalopram Hydrobromide (Celexa -) 20 mg PO DAILY [facility] Last Admin: 10/10/16 09:44 Dose: 20 mg Heparin Sodium (Porcine) (Heparin -) 5,000 unit SQ TID [facility] Last Admin: 10/10/16 06:11 Dose: 5,000 unit Hydralazine HCl (Apresoline -) 50 mg PO TID [facility] Last Admin: 10/10/16 06:10 Dose: 50 mg Insulin Aspart (Novolog Vial Sliding Scale -) 1 vial SQ TIDAC [facility] PRN Reason: Protocol Last Admin: 10/10/16 06:10 Dose: 3 units Insulin Detemir (Levemir Vial) 30 units SQ HS [facility] Last Admin: 10/09/16 21:47 Dose: 30 units Isosorbide Mononitrate (Imdur -) 30 mg PO DAILY [facility] Last Admin: 10/10/16 09:44 Dose: 30 mg Metoprolol Succinate (Toprol Xl -) 25 mg PO BID [facility] Last Admin: 10/10/16 09:44 Dose: 25 mg Prednisone (Deltasone -) 40 mg PO DAILY [facility] Last Admin: 10/10/16 09:44 Dose: 40 mg A/P 51 year old Gentleman with PMhx of CKD Stage 4 with right partial nephrectomy for RCC, Biventricular cardiomyopathy, COPD, Hypertension, Hyperlipidemia, IDDM , Hepatitis C, Polysubstance abuse presented with complaints of cough, sob and weakness and found to have Rhabdo and BUN/Cr of 162.8. #CKD Stage 4 with Rhabdomyolyisis Renal function stable CK levels WNL BUN/Cr unchanged with diuretics would continue Lasix +/- Metolazone as per Cardiology hold off ARB/LAURENT given low GFR no acute indication for [employer] at this time but will need dialysis planning as outpatient ok for discharge from my pespective and to follow up in the office #SOB with Hx fo COPD/CHF continue steroids as per pulmonary Oral Lasix +/- Metolazone as per cardiology Trevor Jenkins DO
[2016-10-10] MEDS ORDERED: ACETAMINOPHEN 325 MG TABLET (FP) PO PRN (14:40)
--- NOTE | 2016-10-10 14:55 | DS ---
Physical Exam: SUBJECTIVE: Patient seen and examined OBJECTIVE: Vital Signs Period Temp Pulse Resp BP Sys/Zhou Pulse Ox Last 24 Hr 97.8 F-98.8 F 79-96 20-22 133-148/79-96 98 PHYSICAL EXAM GENERAL: The patient is awake, alert, and fully oriented, in no acute distress. HEAD: Normal with no signs of trauma. EYES: PERRL, extraocular movements intact, sclera anicteric, conjunctiva clear. No ptosis. LUNGS: Scattered rhonchi on the right, no wheezing HEART: Regular rate and rhythm, S1, S2 without murmur, rub or gallop. ABDOMEN: Soft, nontender, nondistended, normoactive bowel sounds, no guarding, no rebound UPPER EXTREMITIES: 2+ pulses, warm, well-perfused, no edema. LOWER EXTREMITIES: 2+ pulses, warm, well-perfused, 1+ edema mildly improved NEUROLOGICAL: Cranial nerves II through XII grossly intact. Normal speech, steady gait, ambulating hallway PSYCH: Normal mood, normal affect. LABS Laboratory Results - last 24 hr 10/08/16 10/08/16 10/09/16 17:28 20:07 16:56 WBC RBC Hgb Hct MCV MCHC RDW Plt Count MPV Neutrophils % Lymphocytes % Monocytes % Eosinophils % Basophils % Sodium Potassium Chloride Carbon Dioxide Anion Gap BUN Creatinine Creat Clearance w eGFR POC Glucometer 450 425 213 Random Glucose Calcium Magnesium Total Bilirubin AST ALT Alkaline Phosphatase Creatine Kinase Creatine Kinase Index CK-MB (CK-2) CK-MB (CK-2) Rel Index Total Protein Albumin 10/09/16 10/10/16 10/10/16 21:45 05:34 07:35 WBC RBC Hgb Hct MCV MCHC RDW Plt Count MPV Neutrophils % Lymphocytes % Monocytes % Eosinophils % Basophils % Sodium 138 Potassium 3.4 L Chloride 98 Carbon Dioxide 29 Anion Gap 11 BUN 47 H Creatinine 3.2 H Creat Clearance w eGFR 20.50 POC Glucometer 313 208 Random Glucose 242 H D Calcium 9.1 Magnesium 1.5 L Total Bilirubin 0.2 AST 26 D ALT 36 Alkaline Phosphatase 101 D Creatine Kinase Creatine Kinase Index CK-MB (CK-2) CK-MB (CK-2) Rel Index Total Protein 6.2 L Albumin 2.8 L 10/10/16 10/10/16 10/10/16 07:35 07:35 07:35 WBC 17.4 H RBC 4.73 Hgb 11.8 Hct 36.4 MCV 77.0 L MCHC 32.5 RDW 15.1 Plt Count 457 H MPV 8.0 Neutrophils % 70.0 Lymphocytes % 22.1 Monocytes % 7.5 Eosinophils % 0.3 D Basophils % 0.1 Sodium Potassium Chloride Carbon Dioxide Anion Gap BUN Creatinine Creat Clearance w eGFR POC Glucometer Random Glucose Calcium Magnesium Total Bilirubin AST ALT Alkaline Phosphatase Creatine Kinase 219 D Creatine Kinase Index 2.3 CK-MB (CK-2) 4.934 H CK-MB (CK-2) Rel Index Cancelled Total Protein Albumin 10/10/16 10/10/16 11:43 12:36 WBC 19.1 H RBC 4.63 Hgb 11.4 L Hct 35.8 MCV 77.3 L MCHC 31.9 L RDW 15.1 Plt Count 437 H MPV 8.1 Neutrophils % 77.1 Lymphocytes % 15.3 D Monocytes % 6.7 Eosinophils % 0.4 Basophils % 0.5 D Sodium Potassium Chloride Carbon Dioxide Anion Gap BUN Creatinine Creat Clearance w eGFR POC Glucometer 252 Random Glucose Calcium Magnesium Total Bilirubin AST ALT Alkaline Phosphatase Creatine Kinase Creatine Kinase Index CK-MB (CK-2) CK-MB (CK-2) Rel Index Total Protein Albumin HOSPITAL COURSE: Date of Admission:10/04/16 Date of Discharge: 10/10/16 Imaging --08/2016 echo: Mild concentric LVH, mod-severely reduced systolic function ( global). Moderately reduced RV systolic function. mild lae. mild-mod MR. Mod TR. RVSP 40-50. --08/2016 persantine stress: small inferior defect with subtle apical reversibility. LV cavity appears dilated with dyskinetic apex. EF 33%. ASSESSMENT/PLAN 51 year-old male with a PMH of HTN, HLD, CAD, biventricular heart failure, CKD s /p right kidney resection, and IDDM, admitted for COPD and CHF exacerbation. COPD exacerbation --treated with IV steroids, transitioned to PO, discharged with medrol dosepak --treated with inhalers, nebs Mediastinal lymphadenopathy --10/05 CT chest: moderate mediastinal lymphadenopathy, increased since 2011 --will need follow-up outpatient CT chest in 4 weeks, if no change may need PET Biventricular systolic heart failure and diastolic heart failure exacerbation --treated with IV Lasix, metolazone, --continued Toprol XL, isosorbide Hypertension --goal <140/90 --continued Toprol XL, isosorbide; hydralazine increased 50mg TID Hyperlipidemia --continued Lipitor Prolonged QTc -- decreased Celexa to 20mg po daily Rhabdomyolysis, improving --repeat CPK in am Polystubstance abuse --ETOH, crack/cocaine IDDM --Levemir 30mg qhs --Novolog sliding scale coverage Minutes to complete discharge: 35 Discharge Summary Reason For Visit: CHF COPD Current Active Problems CHF (congestive heart failure) (Acute) COPD (chronic obstructive pulmonary disease) (Acute) COPD with asthma (Acute) Lymphadenopathy (Acute) Condition: Improved - Instructions Referrals: Eder Packer MD [Staff Physician] - Anderson Ojeda [Primary Care Provider] - Disposition: HOME - Home Medications Comprehensive Discharge Medication List: Ambulatory Orders Albuterol Sulfate Inhaler - [Ventolin HFA Inhaler -] 2 inh IH Q4H PRN 01/21/12 Aspirin [Ecotrin] 81 mg PO DAILY 12/17/15 Fluticasone/Salmeterol [Advair 250-50 Diskus] 2 inh PO BID 12/17/15 Insulin (Levemir) [Levemir Vial] 30 units SQ HS 12/17/15 Insulin (Novolog) [Novolog -] 0 units SQ AC 12/17/15 Citalopram Hydrobromide [Celexa -] 40 mg PO DAILY 08/27/16 Atorvastatin Ca [Lipitor] 80 mg PO HS #14 tablet 09/07/16 Hydralazine HCl [Apresoline -] 20 mg PO TID #180 tablet 09/07/16 This patient is new to me today: No Emergency Visit: No Critical Care patient: No - Discharge Referral Referred to [facility] Med P.C.: No
--- NOTE | 2016-10-10 16:42 | PN ---
Progress Note (short form) - Note Progress Note: Chief Complaint: chf History of Present Illness: no sob or orthopnea; feels feet/ankles swollen still, but continued improvement. Patient expressing desire to go home. s/p lasix 80 mg IV x 1 and metolazone 2.5 mg PO x 1 no cp, palpit, sob, dizziness + cigs Current Medications Acetaminophen (Tylenol -) 650 mg PO Q6H PRN PRN Reason: FEVER OR PAIN Albuterol Sulfate (Ventolin Hfa Inhaler -) 2 puff IH Q4H PRN PRN Reason: SHORT OF BREATH/WHEEZING Last Admin: 10/10/16 06:15 Dose: 2 puff Aspirin (Ecotrin -) 81 mg PO DAILY [facility] Last Admin: 10/10/16 09:45 Dose: 81 mg Atorvastatin Calcium (Lipitor -) 40 mg PO HS [facility] Last Admin: 10/09/16 21:47 Dose: 40 mg Budesonide/Formoterol Fumarate (Symbicort 80/4.5mcg -) 2 puff IH BID [facility] Last Admin: 10/10/16 09:45 Dose: 2 puff Citalopram Hydrobromide (Celexa -) 20 mg PO DAILY [facility] Last Admin: 10/10/16 09:44 Dose: 20 mg Heparin Sodium (Porcine) (Heparin -) 5,000 unit SQ TID [facility] Last Admin: 10/10/16 14:27 Dose: 5,000 unit Hydralazine HCl (Apresoline -) 50 mg PO TID [facility] Last Admin: 10/10/16 14:27 Dose: 50 mg Insulin Aspart (Novolog Vial Sliding Scale -) 1 vial SQ TIDAC [facility] PRN Reason: Protocol Last Admin: 10/10/16 14:28 Dose: Not Given Insulin Detemir (Levemir Vial) 30 units SQ [facility] Last Admin: 10/09/16 21:47 Dose: 30 units Isosorbide Mononitrate (Imdur -) 30 mg PO DAILY [facility] Last Admin: 10/10/16 09:44 Dose: 30 mg Metoprolol Succinate (Toprol Xl -) 25 mg PO BID [facility] Last Admin: 10/10/16 09:44 Dose: 25 mg Prednisone (Deltasone -) 40 mg PO DAILY [facility] Last Admin: 10/10/16 09:44 Dose: 40 mg Vital Signs - 24 hr 10/09/16 10/09/16 10/09/16 19:00 21:00 21:01 Temperature 97.8 F 98.2 F Pulse Rate 89 92 H Respiratory 22 22 Rate Blood Pressure 133/82 135/80 O2 Sat by Pulse 98 Oximetry (%) 10/10/16 10/10/16 10/10/16 06:00 09:00 10:00 Temperature 98.8 F 98.1 F Pulse Rate 96 H 79 Respiratory 20 20 20 Rate Blood Pressure 148/96 143/79 O2 Sat by Pulse 96 Oximetry (%) 10/10/16 14:06 Temperature 98.5 F Pulse Rate 100 H Respiratory 20 Rate Blood Pressure 148/96 O2 Sat by Pulse Oximetry (%) Intake & Output 10/08/16 10/09/16 10/10/16 10/11/16 07:59 07:59 07:59 07:59 Intake Total 1415 1500 1190 775 Output Total 3300 Balance 1415 1500 -2110 775 Weight 273 lb 9 oz 270 lb 7 oz 270 lb Constitutional: Yes: No Distress, Calm, Obese Eyes: No: Sclera Icterus HENT: No: Nasal Congestion Cardiovascular: Yes: Regular Rate and Rhythm, JVD ((L neck visible--TDS)), S1, S2, Other (PMI non diplaced). No: Gallop, Murmur Respiratory: Yes: Regular, CTA Bilaterally. No: Accessory Muscle Use, Rales, Wheezes Gastrointestinal: Yes: Normal Bowel Sounds, Soft. No: Tenderness Musculoskeletal: Yes: Other (No kyphosis) Extremities: No: Cold Edema: Yes 1+ ankles Integumentary: No: Jaundice Neurological: Yes: Alert, Oriented (x3) Psychiatric: No: Agitated Labs: CBC, BMP 10/10/16 11:43 10/10/16 07:35 Assessment/Plan 08/2016 echo: MIld concentric LVH, mod-severely reduced systolic function ( global). Moderately reduced RV systolic function. mild lae. mild-mod MR. Mod TR. RVSP 40-50. 08/2016 persantine stress: small inferior defect with subtle apical reversibility. LV cavity appears dilated with dyskinetic apex. EF 33%. a/p: 51 year old smoker etoh and crack-cocaine user with history of biventricular cardiomyopathy (recent admit 08/2016 with cardiorenal syndrome requiring milrinone for diuresis), COPD/Asthma, HTN, HLD on zocor, R partial nephrectomy for cancer, CKD, IDDM, Hepatitis C s/p harvoni, remote Seizure history, Alcohol abuse, depression chronic back pain who presents with sob Rhabdomyolysis - Elevated CK likely related to dehydration and crack/cocaine use. Worsened after IV lasix. Now s/p IVF. - renal team following biventricular systolic HF and diastolic HF exacerbation: - new dx of cardiomyopathy in August 2016, probable NICM based on stress testing, hi risk for NIKOLE/HD initiation with cath dye load so deferred for now - had cardiorenal syndrome then requiring milrinone for diuresis. D/c meds lasix 80 po bid, kcl, hydralazine. D/c weight 268 lbs. No lita/arb given ckd. - Current weight below dry weight. Appears dry - IVF now off, creat is at his prior d/c values 08/31 - 10/06: wt trending up 260 to 266 over past 3 days--pt at risk for volume retention given on iv steroids, no signif fluid excess on exam though somewhat TDS--no pulm congestion on CT chest 10/05 - started lasix 40 qd maintenance -last time here required lasix 80 iv TID plus milrinone for adequate diuresis: wt went down 285 to 268 on discharge - 10/07: wt up 271 today, renal fxn worsening despite has not been on diuretics here (only received first dose 40 po lasix this am)--suspect cardiorenal syndrome--start lasix 80 iv x1 today--reassess wt and bun/creat in am, further diuretic recs to follow pending reassessment tomorrow -10/08: renal fxn stable; wt up 273; will give metolazone plus lasix 80 today; may need inotrope assistance again if fluid status/renal fxn does not respond appropriately to diuretics 10/09: wt slightly down today (but close to prior d/c weight which was 268 lbs, and symptomatically improving), will repeat lasix 80 iv x1 and metolazone 2.5. 10/10: plan for d/c today. Would d/c home on torsemide 40 mg/day, toprol 25 mg bid, hydralazine 50 mg TID and increase imdur to 60 mg daily. Counseled patient on the need for regular weights and close cardiology follow up. and abstinence from crack/cocaine while on toprol. DWAIN on CKD with h/o R partial nephrectomy - with rhabdo/dehydration. s/p IVF as mentioned above. - renal following a.e. copd with wheezing: -on steroids -per pulm team HTN - stable mostly 140s systolic - ongiong uptitration of medications HL - con't statin COPD - steroids per per pmd/pulm ETOH/tobacco/crack use - cessation counselled here. s/p recent detox
[2016-10-10 19:07] VITALS: BP 157/92; PULSE 102; TEMP 97.7
== END 2016-10-10 18:43 | disposition home or self-care (01) | DRG 291 ==
LOC: JER 22:27 → UNDOADMIN 10-04 02:03 → JERBED 10-04 02:03 → J4W 10-04 15:15 → J5S 10-06 20:29
PROVIDERS: ADMIT Internal Medicine; ATTEND Nurse Practitioner Acute Care
DX: I13.0 Hypertensive heart and chronic kidney disease with heart failure and stage 1 through stage 4 chronic kidney disease, or unspecified chronic kidney disease (principal); I50.43 Acute on chronic combined systolic (congestive) and diastolic (congestive) heart failure; N18.4 Chronic kidney disease, stage 4 (severe); N17.9 Acute kidney failure, unspecified; J44.1 Chronic obstructive pulmonary disease with (acute) exacerbation; M62.82 Rhabdomyolysis; Z68.41 Body mass index [BMI] 40.0-44.9, adult; K21.9 Gastro-esophageal reflux disease without esophagitis; E78.5 Hyperlipidemia, unspecified; E11.9 Type 2 diabetes mellitus without complications; M54.5 Low back pain; J45.909 Unspecified asthma, uncomplicated; J06.9 Acute upper respiratory infection, unspecified; B19.20 Unspecified viral hepatitis C without hepatic coma; F14.10 Cocaine abuse, uncomplicated; I25.10 Atherosclerotic heart disease of native coronary artery without angina pectoris; F19.94 Other psychoactive substance use, unspecified with psychoactive substance-induced mood disorder; F10.10 Alcohol abuse, uncomplicated; F32.9 Major depressive disorder, single episode, unspecified; Z79.4 Long term (current) use of insulin; Z90.5 Acquired absence of kidney; R59.0 Localized enlarged lymph nodes; Z85.528 Personal history of other malignant neoplasm of kidney; E66.01 Morbid (severe) obesity due to excess calories; Z71.3 Dietary counseling and surveillance
CPT/HCPCS: 36415; 71010-TC; 71020-TC; 71250-TC; 80048; 80053; 81003; 81015; 82550; 82553; 82570; 82947; 83735; 83874; 83880; 84100; 84156; 84300; 84484; 85025; 85027; 85610; 85730; 87040; 87254; 87804; 93005; 93010; 94640; 99283-25; J1644

== ENCOUNTER 2016-10-31 23:21 | Inpatient (IN) | payer OTHER ==
[2016-10-31 23:38] VITALS: BMI 38.8
--- NOTE | 2016-11-01 00:26 | PDOC ---
History of Present Illness - General History Source: Patient, Old Records Exam Limitations: No Limitations - History of Present Illness Initial Comments: 11/01/16 01:12 The patient is a 51 year old male, with a significant past medical history of IDDM, GERD, COPD, CHF, HTN, HLD, asthma, chronic kidney disease, right kidney CA (In remission since 2010) and seizures (last episode age 6, not on any meds) , who presents to the emergency department with fever, diarrhea, shortness of breath, cough, lightheadedness and loss of appetite for roughly a week. He reports that he had a syncopal episode last week for which he did not go to the hospital. He denies any injuries at the time. He notes that he called his PMD prior, who advised him to come to the ED. he describes his cough as dry in nature. He also notes that he had his medications changed week or so ago in which he was switched from Lasix and put on torsemide. He reports that he did receive his flu shot this year. The patient denies chest pain, headache and dizziness. Denies chills, nausea, vomit and constipation. Allergies: Codeine, Iodine Past surgical history: None reported Social history: Alcohol, cocaine and former smoker PMD - Dr. Anderson Ojeda Rate Quoting Operator - Dr. Stephanie Blankenship Diffuser Operator - Dr. Higgins <Josesito De Anda - Last Filed: 11/01/16 01:11> - General History Source: Patient, Old Records Exam Limitations: No Limitations <Richie Vale - Last Filed: 11/01/16 02:31> - General Chief Complaint: Shortness of Breath Stated Complaint: SHORTNESS OF BREATH Time Seen by Provider: 11/01/16 00:01 Past History <Josesito De Anda - Last Filed: 11/01/16 01:11> - Past Medical History Anemia: No Asthma: Yes (MDI) Cancer: Yes (RT. KIDNEY in mpntifiore 2010 on remission) Cardiac Disorders: No CVA: No COPD: No CHF: No Dementia: No Diabetes: Yes (IDDM DUE TO PREDNISONE TX(ENDED 08/25/16)) GI Disorders: Yes (HX GERD-NEXIUM) Disorders: No HTN: Yes Hypercholesterolemia: Yes Kidney Stones: No Liver Disease: Yes Suicide Attempt (Hx): No (DENIES) Seizures: Yes (LAST EPISODE AT 6 YRS OLD;NO CURRENT MED) Thyroid Disease: No - Surgical History Abdominal Surgery: No Appendectomy: No Cardiac Surgery: No Cholecystectomy: No Lung Surgery: No Neurologic Surgery: No Orthopedic Surgery: No - Reproductive History Testicular Surgery: No - Psycho/Social/Smoking Cessation Hx Anxiety: Yes Suicidal Ideation: No Smoking Status: Yes Smoking History: Unknown if ever smoked Have you smoked in the past 12 months: No Number of Cigarettes Smoked Daily: 10 Cigars Per Day: 0 Information on smoking cessation initiated: No 'Breaking Loose' booklet given: 08/27/16 Hx Alcohol Use: No Drug/Substance Use Hx: No Substance Use Type: Alcohol, Cocaine Hx Substance Use Treatment: Yes ([facility]) <Richie Vale - Last Filed: 11/01/16 02:31> - Past Medical History Allergies/Adverse Reactions: Allergies Allergy/AdvReac Type Severity Reaction Status Date / Time codeine [Codeine] Allergy Severe Swelling Verified 10/31/16 23:30 iodine [Iodine] Allergy Severe Swelling Verified 10/31/16 23:30 shellfish derived Allergy Severe Swelling Verified 10/31/16 23:30 [Shellfish Derived] Home Medications: Ambulatory Orders Albuterol Sulfate Inhaler - [Ventolin HFA Inhaler -] 2 inh IH Q4H PRN 01/21/12 Aspirin [Ecotrin] 81 mg PO DAILY 12/17/15 Fluticasone/Salmeterol [Advair 250-50 Diskus] 2 inh PO BID 12/17/15 Insulin (Levemir) [Levemir Vial] 30 units SQ HS 12/17/15 Insulin (Novolog) [Novolog -] 0 units SQ AC 12/17/15 Citalopram Hydrobromide [Celexa -] 40 mg PO DAILY 08/27/16 Atorvastatin Ca [Lipitor] 80 mg PO HS #14 tablet 09/07/16 Hydralazine HCl [Apresoline -] 50 mg PO TID #90 tablet 10/10/16 Isosorbide Mononitrate [Imdur -] 60 mg PO DAILY #30 tab.sr.24h 10/10/16 Methylprednisolone [Medrol Dose Billy] 4 mg PO ASDIR #21 tablet 10/10/16 Metoprolol Succinate [Toprol XL -] 25 mg PO BID #60 tab.sr.24h 10/10/16 Torsemide [Demadex -] 40 mg PO DAILY #30 tablet 10/10/16 Review of Systems - Review of Systems Able to Perform ROS?: Yes Comments:: 11/01/16 01:12 GENERAL/CONSTITUTIONAL: +Fever. Loss of appetite. chills. No weakness. HEAD, EYES, EARS, NOSE AND THROAT: No change in vision. No ear pain or discharge. No sore throat. CARDIOVASCULAR: +Shortness of breath. No chest pain RESPIRATORY: +Cough. No wheezing, or hemoptysis. GASTROINTESTINAL: +Diarrhea. No nausea, vomiting or constipation. GENITOURINARY: No dysuria, frequency, or change in urination. MUSCULOSKELETAL: No joint or muscle swelling or pain. No neck or back pain. SKIN: No rash NEUROLOGIC: +Lightheadedness. No headache, vertigo, or change in strength/ sensation. ENDOCRINE: No increased thirst. No abnormal weight change HEMATOLOGIC/LYMPHATIC: No anemia, easy bleeding, or history of blood clots. ALLERGIC/IMMUNOLOGIC: No hives or skin allergy. <Josesito De Anda - Last Filed: 11/01/16 01:11> *Physical Exam - Vital Signs Last Vital Signs Temp Pulse Resp BP Pulse Ox 98.0 F 107 H 14 147/87 96 10/31/16 23:31 10/31/16 23:31 10/31/16 23:31 10/31/16 23:31 10/31/16 23:31 - Physical Exam Comments: 11/01/16 01:14 GENERAL: Awake, alert, and fully oriented, in no acute distress HEAD: No signs of trauma, normocephalic, atraumatic EYES: PERRLA, EOMI, sclera anicteric, conjunctiva clear ENT: Auricles normal inspection, hearing grossly normal, nares patent, oropharynx clear without exudates. Moist mucosa NECK: Normal ROM, supple, no lymphadenopathy, JVD, or masses LUNGS: No distress, speaks full sentences, clear to auscultation bilaterally HEART: Regular rate and rhythm, normal S1 and S2, no murmurs, rubs or gallops, peripheral pulses normal and equal bilaterally. ABDOMEN: Soft, nontender, normoactive bowel sounds. No guarding, no rebound. No masses EXTREMITIES: Normal inspection, Normal range of motion, no edema. No clubbing or cyanosis. NEUROLOGICAL: Cranial nerves II through XII grossly intact. Normal speech, normal gait, no focal sensorimotor deficits SKIN: Warm, Dry, normal turgor, no rashes or lesions noted. <Josesito De Anda - Last Filed: 11/01/16 01:11> - Vital Signs Last Vital Signs Temp Pulse Resp BP Pulse Ox 98.0 F 107 H 14 147/87 96 10/31/16 23:31 10/31/16 23:31 10/31/16 23:31 10/31/16 23:31 10/31/16 23:31 <Richie Vale - Last Filed: 11/01/16 02:31> Heart Score/ECG Review #1 ECG reviewed & interpreted by me at: 01:50 11/01/16 02:11 NSR 104, incomplete RBBB, LAFB, QTC 483 msec, no std, narendra, atrial enlargement, QTC 483 msec 11/01/16 02:31 NO U waves. <Richie Vale - Last Filed: 11/01/16 02:31> ED Treatment Course - LABORATORY CBC & Chemistry Diagram: 11/01/16 00:50 11/01/16 00:50 - RADIOLOGY Radiology Studies Ordered: Category Date Time Status CHEST X-RAY PORTABLE* [RAD] Stat Radiology 11/01/16 00:16 Ordered <Richie Vale - Last Filed: 11/01/16 02:31> Medical Decision Making - Medical Decision Making 11/01/16 01:43 A portion of this note was documented by scribe services under my direction. I have reviewed the details of the note, within reason, and agree with the documentation with the following case summary and management plan written by me. Patient treated in the ED. Nursing notes are reviewed and incorporated into the medical decision-making. Vital signs reviewed. Peripheral IV access obtained by the nurse, laboratory studies are drawn and sent, reviewed and interpreted by myself. Vital Signs Temp Pulse Resp BP Pulse Ox 98.0 F 107 H 14 147/87 96 10/31/16 23:31 10/31/16 23:31 10/31/16 23:31 10/31/16 23:31 10/31/16 23:31 51 year old male with hx COPD, DM, GERD, CHF, HLD, asthma, CKD, right kidney CA in remission presents with diarrhea, and weakness for 1 week. He reported 1 week ago when he was coming from shopping where he felt lightheaded and syncopized. Fell on the ground but denied any chest pain at that time. He did not see a doctor at that time. Since then, he has been feeling generally weak and fatigued. Two days ago, he started to feel several episodes of loose stool and diarrhea but NO abdominal pain or nausea or vomiting or fevers. States that he also has been feeling somewhat SOB but denies chest pain, and the patient came into the ED for an evaluation. As of note, the patient reports that he was switched from furosemide to toresmide (does not remember dosing) when he was discharged here in late September. He reports adherence to his medications, other than today. Today, labs are reviewed. CBC, BMP 11/01/16 00:50 11/01/16 00:50 Potassium and magnesium are low. Possibly 2/2 to new diuretics and diarrhea. Will order repletions. Cr is stable. Ultimately, the patient should be admitted to the hospital for telemetry and repletion. 11/01/16 02:18 Patient also tells me that 1 week he has had bilateral testicular tenderness. It is constant. I had examined the patient. There is no edema or swelling. It appears to be in normal lie. Has bilateral testicular tendernes to palpation. Denies dysuria. I have very low suspicion for torsion but will need to r/o orchitis, epidimytitis. Will obtain UA and ultrasound. Chest xray reviewed. Demonstrates R sided [address] scan of chest in September demonstrates a 2.7 R paratracheal lymphadenopathy. This is likely the finding that the patient has. Case discussed with Dr. Rogers. She accepts the patient to telemetry observation. Case discussed in detail with admitting physician including history, physical exam and ancillary studies. Admitting physician has assumed care for the patient, will follow all pending diagnostics and will complete the evaluation and treatment. <Richie Vale - Last Filed: 11/01/16 02:31> *DC/Admit/Observation/Transfer - Attestations Scribe Attestion: 11/01/16 01:14 Documentation prepared by Josesito De Anda, acting as chief medical technologist for Richie Vale MD. <Josesito De Anda - Last Filed: 11/01/16 01:11> - Discharge Dispostion Admit: Yes <Richie Vale - Last Filed: 11/01/16 02:31> Diagnosis at time of Disposition: Hypomagnesemia, Hypokalemia - Referrals Referrals: Anderson Ojeda [Primary Care Provider] -
[2016-11-01 01:21] LABS: BASOPHIL 1.1 % (0-2.0); EOSINOPHIL 0.5 % (0-4.5); MCH 24.8 pg (25.7-33.7); MCHC 32.6 g/dl (32.0-35.9); MEAN CELL VOLUME 76.1 fl (80-96); MEAN PLT VOLUME 8.4 fl (7.5-11.1); NEUTROPHILS 73.3 % (42.8-82.8); PLATELET COUNT 430 K/MM3 (134-434); RDW 15.2 % (11.9-15.9); WHITE BLOOD COUNT 12.5 K/mm3 (4.0-10.0)
[2016-11-01 01:44] LABS: ALBUMIN 2.1 g/dl (3.4-5.0); CALCIUM 7.6 mg/dL (8.5-10.1); MAGNESIUM 1.3 mg/dL (1.8-2.4)
[2016-11-01 01:49] LABS: BILIRUBIN,TOTAL 0.3 mg/dL (0.2-1.0); TOT PROT 5.9 g/dl (6.4-8.2); TROPONIN I 0.05 ng/ml (0.00-0.05)
[2016-11-01] MEDS ORDERED: POTASSIUM CHLORIDE TABS 20 MEQ TABLET.ER (FP) PO ONE ×4 (01:59→04:34)
[2016-11-01] MEDS ORDERED: MAGNESIUM SULF 50% (8.12 MEQ/2 ML-1 GM VIAL) IVPB ONE (01:59)
[2016-11-01] MEDS ORDERED: MAGNESIUM SULF 50% (8.12 MEQ/2 ML-1 GM VIAL) ONE (02:30)
[2016-11-01] MEDS ORDERED: ALBUTEROL SO4 6.7 GM HFA INHALER IH PRN (03:59)
[2016-11-01] MEDS ORDERED: INSULIN (NOVOLOG) ASPART 100 UNITS/ML 10ML VIAL SQ SCH (04:00)
--- NOTE | 2016-11-01 04:11 | HP ---
CHIEF COMPLAINT: dizziness PCP: Anderson Ojeda HISTORY OF PRESENT ILLNESS: This is a 51 year old male with a past medical history of COPD/asthma, HTN, HLD , CAD, CHF, R kidney resection, CKD, Hep C, ETOH, DM, GERD, chronic back pain, crack/cocaine abuse who presented to the ED with fever x 3-4 days, but none today, diarrhea x 2 days, SOB and cough x 2-3days, lightheadedness, loss of appetite x 1 week. Pt also reports syncopal episode one week ago which he did not seek treatment for. Pt reports testicular pain off and on for months which is more pronounced x 1 week, unable to sit with legs closed due to pain. ER course was notable for: (1) Cr 4.0 (2) k 2.7 (3) Mg 1.3 Recent Travel: pt denies PAST MEDICAL HISTORY: COPD/asthma HTN HLD CAD CHF R kidney cancer s/p resection 2010 CKD Hep C s/p treatment with Harvoni DM GERD chronic back pain seizures-last at age 6, on no medications lazy eye, right, with poor vision, legally blind PAST SURGICAL HISTORY: R kidney resection Social History: Smoking: quit 1 month ago, previous 1/2 PPD Alcohol: quit 1 month ago Drugs: previous crack/cocaine use, last used 1 month ago Family History: mother , kidney failure and heart problems 2 siblings, one with RA, one with panic attacks Allergies codeine [Codeine] Allergy (Severe, Verified 10/31/16 23:30) Swelling iodine [Iodine] Allergy (Severe, Verified 10/31/16 23:30) Swelling shellfish derived [Shellfish Derived] Allergy (Severe, Verified 10/31/16 23:30) Swelling HOME MEDICATIONS: 3 Medication Instructions Recorded Albuterol Sulfate Inhaler - 2 inh IH Q4H PRN 01/21/12 [Ventolin HFA Inhaler -] Aspirin [Ecotrin] 81 mg PO DAILY 12/17/15 Fluticasone/Salmeterol [Advair 2 inh PO BID 12/17/15 250-50 Diskus] Insulin (Levemir) [Levemir Vial] 30 units SQ HS 12/17/15 Insulin (Novolog) [Novolog -] 0 units SQ AC 12/17/15 Citalopram Hydrobromide [Celexa -] 40 mg PO DAILY 08/27/16 Atorvastatin Ca [Lipitor] 80 mg PO HS #14 tablet 09/07/16 Hydralazine HCl [Apresoline -] 50 mg PO TID #90 tablet 10/10/16 Isosorbide Mononitrate [Imdur -] 60 mg PO DAILY #30 tab.sr.24h 10/10/16 Methylprednisolone [Medrol Dose 4 mg PO ASDIR #21 tablet 10/10/16 Billy] Metoprolol Succinate [Toprol XL -] 25 mg PO BID #60 tab.sr.24h 10/10/16 Torsemide [Demadex -] 40 mg PO DAILY #30 tablet 10/10/16 REVIEW OF SYSTEMS CONSTITUTIONAL: Present: fever, generalized weakness, malaise, loss of appetite Absent: chills, diaphoresis, weight change HEENT: Absent: rhinorrhea, nasal congestion, throat pain, throat swelling, difficulty swallowing, mouth swelling, ear pain, eye pain, visual changes CARDIOVASCULAR: Absent: chest pain, syncope, palpitations, irregular heart rate, lightheadedness , peripheral edema RESPIRATORY: Present: cough, shortness of breath, dyspnea with exertion Absent: orthopnea, wheezing, stridor, hemoptysis GASTROINTESTINAL: Present: nausea, diarrhea Absent: abdominal pain, abdominal distension, vomiting, constipation, melena, hematochezia GENITOURINARY: Present: testicular pain Absent: dysuria, frequency, urgency, hesitancy, hematuria, flank pain, genital pain MUSCULOSKELETAL: Absent: myalgia, arthralgia, joint swelling, back pain, neck pain SKIN: Absent: rash, itching, pallor HEMATOLOGIC/IMMUNOLOGIC: Absent: easy bleeding, easy bruising, lymphadenopathy, frequent infections ENDOCRINE: Absent: unexplained weight gain, unexplained weight loss, heat intolerance, cold intolerance NEUROLOGIC: Absent: headache, focal weakness or paresthesias, dizziness, unsteady gait, seizure, mental status changes, bladder or bowel incontinence PSYCHIATRIC: Absent: anxiety, depression, suicidal or homicidal ideation, hallucinations. PHYSICAL EXAMINATION Vital Signs - 24 hr 3 10/31/16 23:31 Temperature 98.0 F Pulse Rate 107 H Respiratory 14 Rate Blood Pressure 147/87 O2 Sat by Pulse 96 Oximetry (%) GENERAL: Awake, alert, and fully oriented, in no acute distress. HEAD: Normal with no signs of trauma. EYES: Pupils equal, round and reactive to light, extraocular movements intact, sclera anicteric, conjunctiva clear. No lid lag. right eye noted with wander/ gaze to the right EARS, NOSE, THROAT: Ears normal, nares patent, oropharynx clear without exudates. Moist mucous membranes. NECK: Normal range of motion, supple without lymphadenopathy, JVD, or masses. LUNGS: Breath sounds equal, clear to auscultation bilaterally. No wheezes, and no crackles. No accessory muscle use. HEART: Regular rate and rhythm, normal S1 and S2 without murmur, rub or gallop. ABDOMEN: Soft, nontender, not distended, normoactive bowel sounds, no guarding, no rebound, no masses. No hepatomegaly or splenomegaly. GENITOURINARY: testes tender to palpation, left significantly more than right, scrotal sac inverted, able to revert, right testes slightly larger than left and boggy to palpation MUSCULOSKELETAL: Normal range of motion at all joints. No bony deformities or tenderness. No CVA tenderness. UPPER EXTREMITIES: 2+ pulses, warm, well-perfused. No cyanosis. No clubbing. Cap refill <2 seconds. No peripheral edema. LOWER EXTREMITIES: 2+ pulses, warm, well-perfused. No calf tenderness. No peripheral edema. NEUROLOGICAL: Cranial nerves II-XII intact. Normal speech. Normal gait. PSYCHIATRIC: Cooperative. Good eye contact. Appropriate mood and affect. SKIN: Warm, dry, normal turgor, no rashes or lesions noted. Laboratory Results - last 24 hr 3 11/01/16 11/01/16 11/01/16 00:50 00:50 00:50 WBC 12.5 H D RBC 4.47 Hgb 11.1 L Hct 34.0 L MCV 76.1 L MCHC 32.6 RDW 15.2 Plt Count 430 MPV 8.4 Neutrophils % 73.3 Lymphocytes % 16.2 Monocytes % 8.9 Eosinophils % 0.5 Basophils % 1.1 Sodium 139 Potassium 2.7 L* D Chloride 97 L Carbon Dioxide 28 Anion Gap 14 BUN 29 H D Creatinine 4.0 H D Creat Clearance w eGFR 15.85 Random Glucose 199 H Lactic Acid 0.908 Calcium 7.6 L Magnesium 1.3 L Total Bilirubin 0.3 D AST 24 ALT 19 D Alkaline Phosphatase 108 Creatine Kinase 427 H D Creatine Kinase Index 1.1 CK-MB (CK-2) 4.701 H CK-MB (CK-2) Rel Index Troponin I 0.05 B-Natriuretic Peptide 8604.99 H Total Protein 5.9 L Albumin 2.1 L D ECG: sinus tach, rate 104, QTC 483, biatrial enlargement, incomplete RBBB, t wave inversion no longer present in lateral leads when compared with ECG from CXR: R sided mass, left costophrenic angle blunted, ? related to quality of film ASSESSMENT/PLAN: 51yM with a PMH COPD/asthma, HTN, HLD, CAD, CHF, R kidney resection, CKD, Hep C , ETOH, DM, GERD, chronic back pain, crack/cocaine abuse presented to the ED with multiple complaints being admitted for electrolyte imbalance. Hypokalemia - likely related to combined diuretic use and diarrhea - repleted in ED with 60mEq PO, will give additional 40mEq and repeat BMP in am Hypomagnesia - repleted with 4gm IV, repeat lab in AM testicular pain - sono to r/o intermittent torsion or mass - consider consult diarrhea - stool for c diff, culture and O&P ordered Acute kidney injury with CKD - baseline creatinine low 3s, likely due to diuretic - pt didn't take torsemide on 10/31 due to illness, will also hold tomorrow, repeat labs in am, consider restarting at lower dose if Cr closer to baseline - pt does not appear clinically dehydrated, will defer IVF at this time as pt has EF of 33%, if no improvement in Cr in AM, gentle IV hydration - renal consult if Cr not improving. Lung mass?? on Xray - consider CT chest as either inpatient or outpatient - pt was advised to f/u with pulm as outpatient, but pulm did not take insurance, will need alternate watch mechanic HTN/CHF - cont home meds except torsemide as above HLD - cont lipitor DVT PPX - expected LOS less than 48h, defer heparin unless LOS >48h FEN - defer IVF due to low EF - repeat labs @ 6am - low sodium diet Dispo: pt currently requires inpatient monitoring for abnormal electrolytes. Visit type - Emergency Visit Emergency Visit: Yes ED Registration Date: 10/31/16 Care time: The patient presented to the Emergency Department on the above date and was hospitalized for further evaluation of their emergent condition. - New Patient This patient is new to me today: Yes Date on this admission: 11/01/16 - Critical Care Critical Care patient: No
[2016-11-01] MEDS ORDERED: hydrALAZINE HCL 25 MG TABLET (FP) ONE (06:03)
[2016-11-01] MEDS: hydrALAZINE HCL 50 MG TABLET (FP) PO SCH ×2 (06:07→21:27)
[2016-11-01 06:28] LABS: URINE APPEARANCE SLCLOUDY; URINE BILIRUBIN NEGATIVE (NEGATIVE); URINE COLOR LTYELLOW; URINE GLUCOSE (UA) 3+ (NEGATIVE); URINE KETONE NEGATIVE (NEGATIVE); URINE LEUK ESTERASE NEGATIVE (NEGATIVE); URINE NITRITE NEGATIVE (NEGATIVE); URINE UROBILINOGEN NEGATIVE E.U./dl (0.2-1.0)
[2016-11-01 06:53] LABS: URINE BLOOD 1+ (NEGATIVE); URINE PROTEIN 3+ (NEGATIVE)
[2016-11-01 06:55] LABS: URINE BACTERIA RARE /hpf (NONE SEEN); URINE HYALINE CAST 4 /lpf; URINE MUCUS RARE; URINE RBC <1 /hpf (0-3); URINE WBC 3 /hpf (3-5)
[2016-11-01] MEDS ORDERED: INSULIN (NOVOLOG) ASPART 100 UNITS/ML 10ML VIAL ONE (09:52)
[2016-11-01] MEDS ORDERED: ASPIRIN 81 MG CHEWABLE TABLETS ONE (09:56)
[2016-11-01] MEDS ORDERED: ISOSORBIDE MONONITRATE 60 MG TAB.SR.24H (FP) PO ONE (09:56)
[2016-11-01] MEDS ORDERED: TOPIRAMATE 25 MG TABLET (FP) ONE (09:58)
[2016-11-01] MEDS ORDERED: CITALOPRAM HYDROBROMIDE 10 MG TABLET (FP) ONE (09:58)
[2016-11-01] MEDS: METOPROLOL SUCCINATE 25 MG TAB.SR.24H (FP) PO SCH ×2 (09:59→21:27)
[2016-11-01] MEDS: ISOSORBIDE MONONITRATE 30 MG TAB.SR.24H (FP) PO SCH (09:59)
[2016-11-01] MEDS: CITALOPRAM HYDROBROMIDE 20 MG TABLET (FP) PO SCH (09:59)
[2016-11-01] MEDS: ASPIRIN COATED 81 MG TABLET.EC PO SCH (09:59)
--- NOTE | 2016-11-01 14:57 | CONSULT ---
Consult - text type - Consultation Consultation Note: Renal Consult for DWAIN/CKD This is a 51 year old Gentleman well known to me from previous admissions with PMhx of CKD Stage 4 (baseline Cr 3.4-3.7), Partial right nephrectomy, CHF/ Cardiomyopathy, COPD, Hypertension, IDDM, Hepatitis C who presents with complaints of diarrhea, dizziness, and lightheadedness and found to have BUN/Cr of 29/4 and K of 2.7. Pt with known history of substance abuse but denies using and drugs prior to presentation. Reports compliance with all meds including Torsemide. No flank pain. No NSAID use. No sick contacts. No SOB or chest pain. LE Edema has improved. PMHx: as above Allergies: As listed in EMR Family hx: NC Social hx: NO T/A/D ROS: as per HPI, all other pertinent ros negative Home Meds: Home Medications Medication Instructions Recorded Albuterol Sulfate Inhaler - 2 inh IH Q4H PRN 01/21/12 [Ventolin HFA Inhaler -] Aspirin [Ecotrin] 81 mg PO DAILY 12/17/15 Fluticasone/Salmeterol [Advair 2 inh PO BID 12/17/15 250-50 Diskus] Insulin (Levemir) [Levemir Vial] 30 units SQ HS 12/17/15 Insulin (Novolog) [Novolog -] 0 units SQ AC 12/17/15 Citalopram Hydrobromide [Celexa -] 40 mg PO DAILY 08/27/16 Atorvastatin Ca [Lipitor] 80 mg PO HS #14 tablet 09/07/16 Hydralazine HCl [Apresoline -] 50 mg PO TID #90 tablet 10/10/16 Isosorbide Mononitrate [Imdur -] 60 mg PO DAILY #30 tab.sr.24h 10/10/16 Metoprolol Succinate [Toprol XL -] 25 mg PO BID #60 tab.sr.24h 10/10/16 Torsemide [Demadex -] 40 mg PO DAILY #30 tablet 10/10/16 Vital Signs Temperature 98.1 F 11/01/16 11:53 Pulse Rate 96 H 11/01/16 13:00 Respiratory Rate 14 11/01/16 13:00 Blood Pressure 132/80 11/01/16 13:00 O2 Sat by Pulse Oximetry (%) 96 11/01/16 13:00 Intake & Output 10/29/16 10/30/16 10/31/16 11/01/16 23:59 23:59 23:59 23:59 Weight 248 lb 248 lb Gen: NAD, awake and alert HEENT: NC/AT, MMM, No JVD CVS: RRR, No M/R Lungs: Dec BS throughout the lung karimi, no rales Abd: soft, Obese, NT/ND Ext: No edema, clubbing or cyanosis : no bladder distension CBC, BMP 11/01/16 00:50 11/01/16 00:50 Current Medications Albuterol Sulfate (Ventolin Hfa Inhaler -) 2 puff IH Q4H PRN PRN Reason: SHORTNESS OF BREATH Aspirin (Ecotrin -) 81 mg PO DAILY [facility] Last Admin: 11/01/16 09:59 Dose: 81 mg Atorvastatin Calcium (Lipitor -) 80 mg PO HS [facility] Budesonide/Formoterol Fumarate (Symbicort 160/4.5mcg -) 1 puff IH BID [facility] Citalopram Hydrobromide (Celexa -) 40 mg PO DAILY [facility] Last Admin: 11/01/16 09:59 Dose: 40 mg Hydralazine HCl (Apresoline -) 50 mg PO TID [facility] Last Admin: 11/01/16 06:07 Dose: 50 mg Insulin Aspart (Novolog Vial Sliding Scale -) 1 vial SQ TIDAC [facility] PRN Reason: Protocol Insulin Detemir (Levemir Vial) [address] [facility] Isosorbide Mononitrate (Imdur -) 60 mg PO DAILY [facility] Last Admin: 11/01/16 09:59 Dose: 60 mg Metoprolol Succinate (Toprol Xl -) 25 mg PO BID [facility] Last Admin: 11/01/16 09:59 Dose: 25 mg A/P 51 year old Gentleman with PMhx of CKD Stage 4 (baseline Cr 3.4-3.7), Partial right nephrectomy, CHF/Cardiomyopathy, COPD, Hypertension, IDDM, Hepatitis C who presents with complaints of diarrhea, dizziness, and lightheadedness and found to have BUN/Cr of 29/4 and K of 2.7. 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
--- NOTE | 2016-11-01 16:06 | EKG ---
Test Reason : Blood Pressure : / mmHG Vent. Rate : 104 BPM Atrial Rate : 104 BPM P-R Int : 154 ms QRS Dur : 094 ms QT Int : 368 ms P-R-T Axes : 054 -62 116 degrees QTc Int : 483 ms SINUS TACHYCARDIA BIATRIAL ENLARGEMENT INCOMPLETE RIGHT BUNDLE BRANCH BLOCK LEFT ANTERIOR FASCICULAR BLOCK CANNOT RULE OUT ANTERIOR INFARCT , AGE UNDETERMINED ABNORMAL ECG WHEN COMPARED WITH ECG OF 05-OCT-2016 10:08, NO SIGNIFICANT CHANGE WAS FOUND Confirmed by DAVID MITCHELL MD ([id number]) on 11/01/2016 4:06:30 PM Referred By: Confirmed By:DAVID MITCHELL MD
--- NOTE | 2016-11-01 16:07 | CON.CARD ---
Cardiology Consult (text) - Consultation Consultation Note: CC: dizziness 51 year old smoker etoh and crack user with history of biventricular cardiomyopathy (recent admit 08/2016 with cardiorenal requiring milrinone for diuresis and 09/2016 for rhabdo and HF exacerbation), COPD/Asthma, HTN, HLD on zocor, R partial nephrectomy for cancer, CKD, IDDM, Hepatitis C s/p harvoni, remote Seizure history, Alcohol abuse, depression chronic back pain who presents with dizziness, diarrhea and found to have acute renal failure. Did not f/u with cardiology but has been adherent to his medication regimen. 2 weeks ago began experiencing dizziness and had presyncopal episode. + fatigue. No preceding poor po intake. No preceding alcohol binges, states he has been drinking in moderation (no binges, blackouts, vomiting or skipped meals ). Denies recent crack. Over past 2 days also developed diarrhea, now resolved. Denies chest pain. No orthopnea, pnd, palps, le edema. bleeding or transient neurologic symptoms. He denies headache, rashes, visual disturbances, f/c/s, n/v. PAST MEDICAL HISTORY: Per hpi PAST SURGICAL HISTORY: per hpi Social History: Smoking: current smoker Alcohol: + EtOH abuse, Drugs: + crack (smoking) Family History: HTN and ESRD, Mother (HTN,ALCOHOL,) ROS: per hpi Ambulatory Orders Albuterol Sulfate Inhaler - [Ventolin HFA Inhaler -] 2 inh IH Q4H PRN 01/21/12 Aspirin [Ecotrin] 81 mg PO DAILY 12/17/15 Fluticasone/Salmeterol [Advair 250-50 Diskus] 2 inh PO BID 12/17/15 Insulin (Levemir) [Levemir Vial] 30 units SQ HS 12/17/15 Insulin (Novolog) [Novolog -] 0 units SQ AC 12/17/15 Citalopram Hydrobromide [Celexa -] 40 mg PO DAILY 08/27/16 Atorvastatin Ca [Lipitor] 80 mg PO HS #14 tablet 09/07/16 Hydralazine HCl [Apresoline -] 50 mg PO TID #90 tablet 10/10/16 Isosorbide Mononitrate [Imdur -] 60 mg PO DAILY #30 tab.sr.24h 10/10/16 Metoprolol Succinate [Toprol XL -] 25 mg PO BID #60 tab.sr.24h 10/10/16 Torsemide [Demadex -] 40 mg PO DAILY #30 tablet 10/10/16 Current Medications Albuterol Sulfate (Ventolin Hfa Inhaler -) 2 puff IH Q4H PRN PRN Reason: SHORTNESS OF BREATH Aspirin (Ecotrin -) 81 mg PO DAILY [facility] Last Admin: 11/01/16 09:59 Dose: 81 mg Atorvastatin Calcium (Lipitor -) 80 mg PO HS [facility] Budesonide/Formoterol Fumarate (Symbicort 160/4.5mcg -) 1 puff IH BID [facility] Citalopram Hydrobromide (Celexa -) 40 mg PO DAILY [facility] Last Admin: 11/01/16 09:59 Dose: 40 mg Hydralazine HCl (Apresoline -) 50 mg PO TID [facility] Last Admin: 11/01/16 06:07 Dose: 50 mg Insulin Aspart (Novolog Vial Sliding Scale -) 1 vial SQ TIDAC [facility] PRN Reason: Protocol Insulin Detemir (Levemir Vial) 30 units SQ [facility] Isosorbide Mononitrate (Imdur -) 60 mg PO DAILY [facility] Last Admin: 11/01/16 09:59 Dose: 60 mg Metoprolol Succinate (Toprol Xl -) 25 mg PO BID [facility] Last Admin: 11/01/16 09:59 Dose: 25 mg Vital Signs - 24 hr 10/31/16 11/01/16 11/01/16 23:31 03:40 06:13 Temperature 98.0 F 97.8 F 98.7 F Pulse Rate 107 H Pulse Rate [ 85 100 H Left Radial] Respiratory 14 17 17 Rate Blood Pressure 147/87 Blood Pressure 135/82 145/94 [Left Arm] O2 Sat by Pulse 96 97 100 Oximetry (%) 11/01/16 11/01/16 11/01/16 08:28 10:13 11:53 Temperature 98.4 F 98.1 F Pulse Rate 105 H Pulse Rate [ 104 H 98 H Left Radial] Respiratory 16 14 20 Rate Blood Pressure 117/72 Blood Pressure 138/86 142/89 [Left Arm] O2 Sat by Pulse 96 95 99 Oximetry (%) 11/01/16 13:00 Temperature Pulse Rate Pulse Rate [ 96 H Left Radial] Respiratory 14 Rate Blood Pressure Blood Pressure 132/80 [Left Arm] O2 Sat by Pulse 96 Oximetry (%) Intake & Output 10/30/16 10/31/16 11/01/16 11/02/16 07:59 07:59 07:59 07:59 Weight 248 lb 248 lb NAD, calm JVD flat, neck supple tachycardic, regular nl s1, s2 no m/r/g diminshed air movement, nl effort no edema cyanosis or clubbing diminished dp/pt no jaundice, diaphoresis aaox3 Laboratory Tests 11/01/16 00:50 Magnesium 1.3 L Total Bilirubin 0.3 D AST 24 ALT 19 D Alkaline Phosphatase 108 Creatine Kinase 427 H D Creatine Kinase Index 1.1 CK-MB (CK-2) 4.701 H Troponin I 0.05 B-Natriuretic Peptide 8604.99 H Albumin 2.1 L D EKG: stach, incomplete RBBB, lafb, non-sp t wave ab tele: nsr CXR: new non-calcified opacity in rt parahilar region. 08/2016 echo: MIld concentric LVH, mod-severely reduced systolic function ( global). Moderately reduced RV systolic function. mild lae. mild-mod MR. Mod TR. RVSP 40-50. 08/2016 persantine stress: small inferior defect with subtle apical reversibility. LV cavity appears dilated with dyskinetic apex. EF 33%. a/p: 51 year old smoker etoh and crack user with history of biventricular cardiomyopathy (recent admit 08/2016 with cardiorenal requiring milrinone for diuresis), COPD/Asthma, HTN, HLD on zocor, R partial nephrectomy for cancer, CKD , IDDM, Hepatitis C s/p harvoni, remote Seizure history, Alcohol abuse, depression chronic back pain who presents with sob DWAIN on CKD with h/o R partial nephrectomy - likely 2/2 overdiuresis in setting of diarrhea and no cardiology follow up for diuretic adjustment. Agree with holding diuresis. Electrolyte repletion as doing. biventricular systolic HF and diastolic HF exacerbation: - new dx of cardiomyopathy in August, NICM based on stress testing, had cardiorenal syndrome requiring milrinone for diuresis. D/c meds lasix 80 po bid , kcl, hydralazine. D/c weight 268 lbs. No lita/arb given ckd. Then 09/2016 admit, diuresis with lasix 80 mg IV daily and intermittent metolazone. D/c on torsemide 40mg/day. D/c weight 270 lbs (although pt states was 248 lbs on his home scale). - currently with mild hypovolemia. Holding diuretics as above. - daily standing weights, bmp - cont metoprolol, imdur, hydralazine HTN - controlled on current meds HL - con't statin COPD - per pmd, currently with stable sx's. - new density on CXR, further work up per pmd ETOH/tobacco/crack use - cessation counseling. s/p recent detox.
[2016-11-01 16:12] LABS: MCH 24.8 pg (25.7-33.7); MCHC 32.6 g/dl (32.0-35.9); MEAN CELL VOLUME 75.9 fl (80-96); MEAN PLT VOLUME 8.1 fl (7.5-11.1); PLATELET COUNT 421 K/MM3 (134-434); RDW 15.2 % (11.9-15.9)
[2016-11-01 16:26] LABS: ALBUMIN 2.1 g/dl (3.4-5.0); BILIRUBIN,TOTAL 0.2 mg/dL (0.2-1.0); CALCIUM 7.8 mg/dL (8.5-10.1); CREATININE 3.7 mg/dL (0.7-1.3); TOT PROT 5.8 g/dl (6.4-8.2)
[2016-11-01 16:29] LABS: TROPONIN I 0.02 ng/ml (0.00-0.05)
[2016-11-01] MEDS: ATORVASTATIN CA 80 MG TABLET (FP) PO SCH (21:27)
[2016-11-01] MEDS: INSULIN DETEMIR 100 UNITS/ML MDV SQ SCH (21:28)
[2016-11-01] MEDS: BUDESONIDE/FORMETEROL FUMARATE 160/4.5 mcg INHALER IH SCH ×2 (21:46→21:50)
[2016-11-02] MEDS: hydrALAZINE HCL 50 MG TABLET (FP) PO SCH ×3 (05:51→21:48)
[2016-11-02] MEDS: INSULIN SLIDING SCALE (NOVOLOG) 1 VIAL SQ SCH ×4 (06:50→21:50)
[2016-11-02 08:21] LABS: MCH 24.6 pg (25.7-33.7); MCHC 32.2 g/dl (32.0-35.9); MEAN CELL VOLUME 76.3 fl (80-96); MEAN PLT VOLUME 8.2 fl (7.5-11.1); PLATELET COUNT 455 K/MM3 (134-434); RDW 14.9 % (11.9-15.9); WHITE BLOOD COUNT 9.9 K/mm3 (4.0-10.0)
[2016-11-02 08:42] LABS: ALBUMIN 2.4 g/dl (3.4-5.0); CALCIUM 8.3 mg/dL (8.5-10.1); CREATININE 3.4 mg/dL (0.7-1.3); MAGNESIUM 2.1 mg/dL (1.8-2.4); PHOSPHOROUS 3.3 mg/dL (2.5-4.9)
[2016-11-02 08:45] LABS: BILIRUBIN,TOTAL 0.2 mg/dL (0.2-1.0); TOT PROT 6.2 g/dl (6.4-8.2)
[2016-11-02] MEDS: METOPROLOL SUCCINATE 25 MG TAB.SR.24H (FP) PO SCH ×2 (09:41→21:49)
[2016-11-02] MEDS: ISOSORBIDE MONONITRATE 30 MG TAB.SR.24H (FP) PO SCH (09:41)
[2016-11-02] MEDS: ASPIRIN COATED 81 MG TABLET.EC PO SCH (09:41)
[2016-11-02] MEDS: CITALOPRAM HYDROBROMIDE 20 MG TABLET (FP) PO SCH (09:41)
--- NOTE | 2016-11-02 11:45 | PN ---
Progress Note (short form) - Note Progress Note: s: no cp sob palps dizzy o: Vital Signs Period Temp Pulse Resp BP Sys/Zhou Pulse Ox Last 24 Hr 97.7 F-98.4 F 91-105 14-20 117-144/72-95 94-99 NAD, calm JVD flat, neck supple regular nl s1, s2 no m/r/g cta bl, nl effort no edema cyanosis or clubbing no jaundice, diaphoresis aaox3 Current Medications Generic Name Dose Route Start Last Admin Trade Name Freq PRN Reason Stop Dose Admin Albuterol Sulfate 2 puff 11/01/16 03:59 11/02/16 05:49 Ventolin Hfa Inhaler - IH 2 puff Q4H PRN Administration SHORTNESS OF BREATH Aspirin 81 mg 11/01/16 10:00 11/02/16 09:41 Ecotrin - PO 81 mg DAILY [facility] Administration Atorvastatin Calcium 80 mg 11/01/16 22:00 11/01/16 21:27 Lipitor - PO 80 mg HS [facility] Administration Budesonide/Formoterol Fumarate 1 puff 11/01/16 10:00 11/01/16 21:50 Symbicort 160/4.5mcg - IH Not Given BID [facility] Citalopram Hydrobromide 40 mg 11/01/16 10:00 11/02/16 09:41 Celexa - PO 40 mg DAILY [facility] Administration Hydralazine HCl 50 mg 11/01/16 06:00 11/02/16 05:51 Apresoline - PO 50 mg TID [facility] Administration Insulin Aspart 1 vial 11/01/16 07:00 11/02/16 06:50 Novolog Vial Sliding Scale - SQ 3 units TIDAC [facility] Administration Protocol Insulin Detemir 30 units 11/01/16 22:00 11/01/16 21:28 Levemir Vial SQ 30 units HS [facility] Administration Isosorbide Mononitrate 60 mg 11/01/16 10:00 11/02/16 09:41 Imdur - PO 60 mg DAILY [facility] Administration Metoprolol Succinate 25 mg 11/01/16 10:00 11/02/16 09:41 Toprol Xl - PO 25 mg BID [facility] Administration CBC, BMP 11/02/16 06:10 11/02/16 06:10 EKG: stach, incomplete RBBB, lafb, non-sp t wave ab tele: sr CXR: new non-calcified opacity in rt parahilar region. 08/2016 echo: MIld concentric LVH, mod-severely reduced systolic function ( global). Moderately reduced RV systolic function. mild lae. mild-mod MR. Mod TR. RVSP 40-50. 08/2016 persantine stress: small inferior defect with subtle apical reversibility. LV cavity appears dilated with dyskinetic apex. EF 33%. a/p: 51 year old smoker etoh and crack user with history of biventricular cardiomyopathy (recent admit 08/2016 with cardiorenal requiring milrinone for diuresis), COPD/Asthma, HTN, HLD on zocor, R partial nephrectomy for cancer, CKD , IDDM, Hepatitis C s/p harvoni, remote Seizure history, Alcohol abuse, depression chronic back pain who presents with sob DWAIN on CKD with h/o R partial nephrectomy - likely 2/2 overdiuresis in setting of diarrhea and no cardiology follow up for diuretic adjustment. - cr improving, cont to hold diuretic until back to baseline biventricular systolic HF and diastolic HF exacerbation: - new dx of cardiomyopathy in August, NICM based on stress testing, had cardiorenal syndrome requiring milrinone for diuresis. D/c meds lasix 80 po bid , kcl, hydralazine. D/c weight 268 lbs. No lita/arb given ckd. Then 09/2016 admit, diuresis with lasix 80 mg IV daily and intermittent metolazone. D/c on torsemide 40mg/day. D/c weight 270 lbs (although pt states was 248 lbs on his home scale). - currently with mild hypovolemia. Holding diuretics as above. - cont metoprolol, imdur, hydralazine - when cr back to baseline will resume torsemide 20 qd (lower dose then the 40 he was on) and he will need close outpt f/u to manage diuretic dosing (this was explained to pt). HTN - controlled on current meds HL - con't statin COPD - per pmd, currently with stable sx's. - new density on CXR, further work up per pmd ETOH/tobacco/crack use - cessation counseling. s/p recent detox.
--- NOTE | 2016-11-02 11:54 | PN ---
Progress Note (short form) - Note Progress Note: Subjective: The patient was seen and examined at the bedside, he reports feeling better today, he is no longer experiencing dizziness Current Medications Generic Name Dose Route Start Last Admin Trade Name Isamar PRN Reason Stop Dose Admin Albuterol Sulfate 2 puff 11/01/16 03:59 11/02/16 05:49 Ventolin Hfa Inhaler - IH 2 puff Q4H PRN Administration SHORTNESS OF BREATH Aspirin 81 mg 11/01/16 10:00 11/02/16 09:41 Ecotrin - PO 81 mg DAILY [facility] Administration Atorvastatin Calcium 80 mg 11/01/16 22:00 11/01/16 21:27 Lipitor - PO 80 mg HS [facility] Administration Budesonide/Formoterol Fumarate 1 puff 11/01/16 10:00 11/01/16 21:50 Symbicort 160/4.5mcg - IH Not Given BID [facility] Citalopram Hydrobromide 40 mg 11/01/16 10:00 11/02/16 09:41 Celexa - PO 40 mg DAILY [facility] Administration Hydralazine HCl 50 mg 11/01/16 06:00 11/02/16 05:51 Apresoline - PO 50 mg TID [facility] Administration Insulin Aspart 1 vial 11/01/16 07:00 11/02/16 06:50 Novolog Vial Sliding Scale - SQ 3 units TIDAC [facility] Administration Protocol Insulin Detemir 30 units 11/01/16 22:00 11/01/16 21:28 Levemir Vial SQ 30 units HS [facility] Administration Isosorbide Mononitrate 60 mg 11/01/16 10:00 11/02/16 09:41 Imdur - PO 60 mg DAILY [facility] Administration Metoprolol Succinate 25 mg 11/01/16 10:00 11/02/16 09:41 Toprol Xl - PO 25 mg BID [facility] Administration Objective: Vital Signs Period Temp Pulse Resp BP Sys/Zhou Pulse Ox Last 24 Hr 97.7 F-98.4 F 91-97 14-14 130-144/80-95 94-97 Physical Exam: General: NAD, A&Ox3 HEENT: Right eye strabismus Lungs: B/l end expiratory wheezing Heart: RRR, S1S2 Abd: Soft, non-tender, non-distended. Normoactive bowel sounds Ext: Warm, well-perfused. No edema. 2+ DP/PT bilaterally CBCD WBC 9.9 K/mm3 (4.0-10.0) 11/02/16 06:10 RBC 4.39 M/mm3 (4.00-5.60) 11/02/16 06:10 Hgb 10.8 GM/dL (11.7-16.9) L 11/02/16 06:10 Hct 33.5 % (35.4-49) L 11/02/16 06:10 MCV 76.3 fl (80-96) L 11/02/16 06:10 MCHC 32.2 g/dl (32.0-35.9) 11/02/16 06:10 RDW 14.9 % (11.9-15.9) 11/02/16 06:10 Plt Count 455 K/MM3 (134-434) H 11/02/16 06:10 MPV 8.2 fl (7.5-11.1) 11/02/16 06:10 CMP Sodium 137 mmol/L (136-145) 11/02/16 06:10 Potassium 3.5 mmol/L (3.5-5.1) 11/02/16 06:10 Chloride 97 mmol/L (98-107) L 11/02/16 06:10 Carbon Dioxide 26 mmol/L (21-32) 11/02/16 06:10 Anion Gap 14 (8-16) 11/02/16 06:10 BUN 30 mg/dL (7-18) H 11/02/16 06:10 Creatinine 3.4 mg/dL (0.7-1.3) H 11/02/16 06:10 Creat Clearance w eGFR 19.11 (>60) 11/02/16 06:10 Random Glucose 235 mg/dL (74-106) H 11/02/16 06:10 Calcium 8.3 mg/dL (8.5-10.1) L 11/02/16 06:10 Total Bilirubin 0.2 mg/dL (0.2-1.0) 11/02/16 06:10 AST 15 U/L (15-37) D 11/02/16 06:10 ALT 21 U/L (12-78) 11/02/16 06:10 Alkaline Phosphatase 108 U/L (45-117) 11/02/16 06:10 Total Protein 6.2 g/dl (6.4-8.2) L 11/02/16 06:10 Albumin 2.4 g/dl (3.4-5.0) L 11/02/16 06:10 CARDIAC ENZYMES Creatine Kinase 294 IU/L (39-308) D 11/01/16 15:55 Troponin I 0.02 ng/ml (0.00-0.05) D 11/01/16 15:55 Microbiology 11/01/16 06:19 Urine - Urine Clean Catch Urine Culture - Preliminary 11/01/16 00:55 Blood - Peripheral Venous Blood Culture - Preliminary NO GROWTH OBTAINED AFTER 24 HOURS, INCUBATION TO CONTINUE FOR 4 DAYS. 11/01/16 00:55 Blood - Peripheral Venous Blood Culture - Preliminary NO GROWTH OBTAINED AFTER 24 HOURS, INCUBATION TO CONTINUE FOR 4 DAYS. 11/01/16 01:10 Nasopharyngeal Swab Respiratory Virus Panel - Preliminary 11/01/16 01:10 Nasopharyngeal Swab Influenza Types A,B Antigen (JR) - Final 11/01/16 01:10 Nasopharyngeal Swab - Final Assessment: This is a 51 year old male with PMHx of COPD/asthma, HTN, HLD, CAD, CHF, R kidney resection, CKD, Hep C, ETOH, DM, GERD, chronic back pain, crack/ cocaine abuse who presented to the ED with fever, diarrhea, cough and syncopal episode one week ago Plan: 1) Cardiology: Chronic biventricular systolic heart failure and diastolic heart failure - No evidence of failure - Current weight below dry weight - When creatinine back to baseline ~3 will resume Torsemide 20mg po daily - Appreciate cardiology consult HTN - Continue home medications HLD - Continue statin 2) ID: pneumonia - Chest CT with infiltrate - Discussed with Dr. Archibald, will give Levaquin 500mg now followed by Levaquin 250mg po daily - Appreciate ID consult 3) : DWAIN on CKD stage 4 with proteinuria - DWAIN likely prerenal 2/2 dehydration in the setting of diuretics and diarrhea - Cr continues to improve off diuretics - No LAURENT/ARB given advanced CKD - Appreciate nephrology consult 4) Pulmonary: COPD - Stable - Continue home medicationes Noncalcified airspace opacity in the right parahilar region - Not present on x-ray chest 10/05 - Will repeat chest CT without contrast 5) Psych: ETOH, crack/cocaine abuse 6) Endocrine: IDDM - BGM ACHS - ISS ACHS - Continue Levemir 7) F/E/N: - Diabetic, low sodium diet - Monitor electrolytes 8) Prophylaxis: - Heparin 5,000u sq tid 9) Dispo: - Anticipate discharge tomorrow if creatinine improves CODE STATUS: FULL CODE Visit type - Emergency Visit Emergency Visit: Yes ED Registration Date: 11/02/16 Care time: The patient presented to the Emergency Department on the above date and was hospitalized for further evaluation of their emergent condition. - New Patient This patient is new to me today: Yes Date on this admission: 11/02/16 - Critical Care Critical Care patient: No
[2016-11-02] MEDS: BUDESONIDE/FORMETEROL FUMARATE 160/4.5 mcg INHALER IH SCH ×2 (11:56→23:11)
--- NOTE | 2016-11-02 12:29 | PN ---
Progress Note (short form) - Note Progress Note: Renal Follow up for DWAIN on CKD Pt seen and examined at the bedside No acute complaints denies any dizziness, lightheadedness, sob, chest pain good oral intake good urine output Vital Signs Temperature 98.4 F 11/02/16 02:10 Pulse Rate 91 H 11/02/16 10:00 Respiratory Rate 14 11/02/16 02:10 Blood Pressure 140/92 11/02/16 10:00 O2 Sat by Pulse Oximetry (%) 97 11/02/16 09:00 Intake & Output 10/30/16 10/31/16 11/01/16 11/02/16 23:59 23:59 23:59 23:59 Intake Total 400 250 Balance 400 250 Weight 248 lb 248 lb 250 lb Gen: NAD, awake and alert CVS: RRR, No M/R Lungs: Dec BS throughout the lung karimi, no rales Abd: soft, Obese, NT/ND Ext: Trace LE edema CBC, BMP 11/02/16 06:10 11/02/16 06:10 Laboratory Tests 11/02/16 06:10 Calcium 8.3 L Phosphorus 3.3 D Magnesium 2.1 D Current Medications Albuterol Sulfate (Ventolin Hfa Inhaler -) 2 puff IH Q4H PRN PRN Reason: SHORTNESS OF BREATH Last Admin: 11/02/16 05:49 Dose: 2 puff Aspirin (Ecotrin -) 81 mg PO DAILY [facility] Last Admin: 11/02/16 09:41 Dose: 81 mg Atorvastatin Calcium (Lipitor -) 80 mg PO HS [facility] Last Admin: 11/01/16 21:27 Dose: 80 mg Budesonide/Formoterol Fumarate (Symbicort 160/4.5mcg -) 1 puff IH BID [facility] Last Admin: 11/02/16 11:56 Dose: 1 puff Citalopram Hydrobromide (Celexa -) 40 mg PO DAILY [facility] Last Admin: 11/02/16 09:41 Dose: 40 mg Heparin Sodium (Porcine) (Heparin -) 5,000 unit SQ TID [facility] Hydralazine HCl (Apresoline -) 50 mg PO TID [facility] Last Admin: 11/02/16 05:51 Dose: 50 mg Insulin Aspart (Novolog Vial Sliding Scale -) 1 vial SQ ACHS [facility] PRN Reason: Protocol Insulin Detemir (Levemir Vial) 30 units SQ HS [facility] Last Admin: 11/01/16 21:28 Dose: 30 units Isosorbide Mononitrate (Imdur -) 60 mg PO DAILY [facility] Last Admin: 11/02/16 09:41 Dose: 60 mg Metoprolol Succinate (Toprol Xl -) 25 mg PO BID [facility] Last Admin: 11/02/16 09:41 Dose: 25 mg A/P 51 year old Gentleman with PMhx of CKD Stage 4 (baseline Cr 3.4-3.7), Partial right nephrectomy, CHF/Cardiomyopathy, COPD, Hypertension, IDDM, Hepatitis C who presents with complaints of diarrhea, dizziness, and lightheadedness and found to have BUN/Cr of 29/4 and K of 2.7. #DWAIN on CKD Stage 4 with nephrotic range proteinuria Renal function with improvement off diuretics agree with holding diuretics for one more day and if renal function remains stable can resume at lower dose with close monitoring of renal function and weights as outpatient #Hypokalemia improved and stable today Trend daily #Hypomagnesemia Mg at goal today Trend daily #CHF No acute volume overload at this time Resume diuretifcs if renal function improve or stays stable tomorrow Trevor Jenkins DO
--- NOTE | 2016-11-02 15:01 | PN ---
Progress Note, Physician Chief Complaint: ID Consult dictated CT image with infiltrate air bronchogram Productive couph but not SOB - Current Medication List Current Medications: Active Medications Albuterol Sulfate (Ventolin Hfa Inhaler -) 2 puff IH Q4H PRN PRN Reason: SHORTNESS OF BREATH Last Admin: 11/02/16 05:49 Dose: 2 puff Aspirin (Ecotrin -) 81 mg PO DAILY [facility] Last Admin: 11/02/16 09:41 Dose: 81 mg Atorvastatin Calcium (Lipitor -) 80 mg PO HS [facility] Last Admin: 11/01/16 21:27 Dose: 80 mg Budesonide/Formoterol Fumarate (Symbicort 160/4.5mcg -) 1 puff IH BID [facility] Last Admin: 11/02/16 11:56 Dose: 1 puff Citalopram Hydrobromide (Celexa -) 40 mg PO DAILY [facility] Last Admin: 11/02/16 09:41 Dose: 40 mg Heparin Sodium (Porcine) (Heparin -) 5,000 unit SQ TID [facility] Hydralazine HCl (Apresoline -) 50 mg PO TID [facility] Last Admin: 11/02/16 05:51 Dose: 50 mg Insulin Aspart (Novolog Vial Sliding Scale -) 1 vial SQ [facility] PRN Reason: Protocol Insulin Detemir (Levemir Vial) 30 units SQ [facility] Last Admin: 11/01/16 21:28 Dose: 30 units Isosorbide Mononitrate (Imdur -) 60 mg PO DAILY [facility] Last Admin: 11/02/16 09:41 Dose: 60 mg Metoprolol Succinate (Toprol Xl -) 25 mg PO BID [facility] Last Admin: 11/02/16 09:41 Dose: 25 mg - Objective Vital Signs: Vital Signs Temperature 98.4 F 11/02/16 02:10 Pulse Rate 91 H 11/02/16 10:00 Respiratory Rate 14 11/02/16 02:10 Blood Pressure 140/92 11/02/16 10:00 O2 Sat by Pulse Oximetry (%) 97 11/02/16 09:00 Constitutional: Yes: No Distress HENT: Yes: WNL, Atraumatic Neck: Yes: WNL, Supple Cardiovascular: Yes: Regular Rate and Rhythm, S1, S2. No: Murmur Respiratory: Yes: Rhonchi Gastrointestinal: Yes: Soft. No: Tenderness Edema: No Problem List - Problems (1) COPD (chronic obstructive pulmonary disease) Code(s): J44.9 - CHRONIC OBSTRUCTIVE PULMONARY DISEASE, UNSPECIFIED Qualifiers : COPD type: unspecified COPD Qualified Code(s): J44.9 - Chronic obstructive pulmonary disease, unspecified (2) Pneumonia Code(s): J18.9 - PNEUMONIA, UNSPECIFIED ORGANISM Assessment/Plan Microbiology 11/01/16 01:10 Nasopharyngeal Swab Influenza Types A,B Antigen (JR) - Final 11/01/16 01:10 Nasopharyngeal Swab - Final 11/01/16 06:19 Urine - Urine Clean Catch Urine Culture - Preliminary 11/01/16 01:10 Nasopharyngeal Swab Respiratory Virus Panel - Preliminary 11/01/16 00:55 Blood - Peripheral Venous Blood Culture - Preliminary NO GROWTH OBTAINED AFTER 24 HOURS, INCUBATION TO CONTINUE FOR 4 DAYS. 11/01/16 00:55 Blood - Peripheral Venous Blood Culture - Preliminary NO GROWTH OBTAINED AFTER 24 HOURS, INCUBATION TO CONTINUE FOR 4 DAYS. Laboratory Tests 11/01/16 11/02/16 11/02/16 00:50 06:10 06:10 WBC 12.5 H D 9.9 Hgb 10.8 L Hct 33.5 L Plt Count 455 H BUN 30 H Creatinine 3.4 H Creat Clearance w eGFR 19.11 Assessment Pneumonia RUL Not acutely ill COPD by history Cardiomyopathy Recent HIV negative test Substance abuse Plan Sputum c/s Quant gold Levoflox 500mg now 250 daily Cristela POSADAS
[2016-11-02] MEDS ORDERED: LEVOFLOXACIN 500 MG TABLET (FP) PO ONE (15:15)
[2016-11-02] MEDS: HEPARIN NA (PORCINE) 5,000 UNITS/ML 1ML VIAL SQ SCH ×2 (15:52→21:48)
--- NOTE | 2016-11-02 20:12 | CONS ---
DATE OF CONSULTATION: DATE OF DICTATION: 11/02/2016 HISTORY OF PRESENT ILLNESS: This is a 51-year-old -Citizen Of [place] male who I am asked to see for evaluation of pulmonary infiltrates seen on a chest CT scan. He has multiple comorbid conditions including chronic kidney disease stage IV, partial right nephrectomy for cancer, cardiomyopathy, congestive heart failure, hypertension, insulin-dependent diabetes, chronic hepatitis C, and hypertension and COPD. He had been admitted in September of this year to [facility] and is readmitted now with complaints of dizziness, lightheadedness and some diarrhea. He was noted to have a BUN and creatinine of 29 and 4 and a potassium of 2.7. He has a known history of substance abuse but denies intravenous drug abuse. A CT scan of the chest was obtained, which showed a small pulmonary infiltrate. The patient has known COPD and notes a productive cough, which he says is more than his baseline. He has no chills, fevers, or shortness of breath at the current time. CURRENT MEDICATIONS: Include Celexa, Ventolin, Toprol, Apresoline, Lipitor, insulin, Levemir, Imdur, Ecotrin. ALLERGIES: CODEINE and IODINE . SOCIAL HISTORY: Substance abuse. No IVDA. Former smoker. FAMILY HISTORY: Reviewed. REVIEW OF SYSTEMS: All systems reviewed and noncontributory. PHYSICAL EXAMINATION: General: He was a heavy set male in no acute distress. Vital Signs: No acute distress. Temperature was 98.4, pulse 97, blood pressure 140/80, respirations 16. Neck: Supple. Lungs: Bilateral rhonchi. Heart: S1, S2, regular rhythm without murmur. Abdomen: Soft, nontender, without hepatosplenomegaly. Extremities: Trace lower extremity edema. LABORATORY DATA: The white count is 9.9, hemoglobin 10.8, platelets of 455. BUN 30, creatinine 3.4. Urinalysis negative for leukocyte esterase. IMAGING: CT of the chest was reviewed. It shows pulmonary infiltrate with an air bronchogram anterior segment of the right upper lobe. ASSESSMENT: A 51-year-old male with multiple comorbid conditions including chronic obstructive pulmonary disease, chronic kidney disease, diabetes, and cardiomyopathy. Notes productive cough in the absence of any fever or chills with CT findings suggesting infiltrate. Would get a sputum culture. Order a Legionella urinary antigen and empirically start him o levofloxacin adjusted for creatinine clearance. EVELYN LY M.D. ROSALVA/[id number]
[2016-11-02] MEDS: INSULIN DETEMIR 100 UNITS/ML MDV SQ SCH (21:48)
[2016-11-02] MEDS: ATORVASTATIN CA 80 MG TABLET (FP) PO SCH (21:49)
[2016-11-03] MEDS ORDERED: LEVOFLOXACIN 250 MG TABLET (FP) PO SCH (06:00)
[2016-11-03] MEDS: INSULIN SLIDING SCALE (NOVOLOG) 1 VIAL SQ SCH ×2 (06:40→12:04)
[2016-11-03] MEDS: hydrALAZINE HCL 50 MG TABLET (FP) PO SCH ×2 (06:40→14:15)
[2016-11-03] MEDS: HEPARIN NA (PORCINE) 5,000 UNITS/ML 1ML VIAL SQ SCH ×2 (06:40→14:15)
--- NOTE | 2016-11-03 08:00 | PN ---
[id number] Period Temp Pulse Resp BP Sys/Zhou Pulse Ox Last 24 Hr 97.9 F-98.2 F 86-99 18-20 110-150/74-96 98 GENERAL: The patient is awake, alert, and fully oriented, in no acute distress. HEAD: Normal with no signs of trauma. EYES: PERRL, right eye strabismus. ENT: Ears normal, nares patent, oropharynx clear without exudates, moist mucous membranes. NECK: Trachea midline, full range of motion, supple. LUNGS: Breath sounds equal, very scant expiratory wheeze. HEART: Regular rate and rhythm, S1, S2 without murmur, rub or gallop. ABDOMEN: Soft, nontender, nondistended, normoactive bowel sounds, no guarding, no rebound, no hepatosplenomegaly, no masses. EXTREMITIES: 2+ pulses, warm, well-perfused, no edema. NEUROLOGICAL: Cranial nerves II through XII grossly intact. Normal speech, gait not observed. PSYCH: Normal mood, normal affect. SKIN: Warm, dry, normal turgor, no rashes or lesions noted Laboratory Results - last 24 hr 11/02/16 11/02/16 11/02/16 16:50 20:00 21:47 POC Glucometer 196 231 C-Reactive Protein 9.4 H 11/03/16 05:40 POC Glucometer 261 C-Reactive Protein Active Medications Generic Name Dose Route Start Last Admin Trade Name Freq PRN Reason Stop Dose Admin Albuterol Sulfate 2 puff 11/01/16 03:59 11/02/16 05:49 Ventolin Hfa Inhaler - IH 2 puff Q4H PRN Administration SHORTNESS OF BREATH Aspirin 81 mg 11/01/16 10:00 11/02/16 09:41 Ecotrin - PO 81 mg DAILY PAPI Administration Atorvastatin Calcium 80 mg 11/01/16 22:00 11/02/16 21:49 Lipitor - PO 80 mg HS PAPI Administration Budesonide/Formoterol Fumarate 1 puff 11/01/16 10:00 11/02/16 23:11 Symbicort 160/4.5mcg - IH 1 puff BID PAPI Administration Citalopram Hydrobromide 40 mg 11/01/16 10:00 11/02/16 09:41 Celexa - PO 40 mg DAILY PAPI Administration Heparin Sodium (Porcine) 5,000 unit 11/02/16 14:00 11/03/16 06:40 Heparin - SQ 5,000 unit TID PAPI Administration Hydralazine HCl 50 mg 11/01/16 06:00 11/03/16 06:40 Apresoline - PO 50 mg TID PAPI Administration Insulin Aspart 1 vial 11/02/16 16:30 11/03/16 06:40 Novolog Vial Sliding Scale - SQ 4 units ACHS PAPI Administration Protocol Insulin Detemir 30 units 11/01/16 22:00 11/02/16 21:48 Levemir Vial SQ 30 units HS PAPI Administration Isosorbide Mononitrate 60 mg 11/01/16 10:00 11/02/16 09:41 Imdur - PO 60 mg DAILY PAPI Administration Levofloxacin 250 mg 11/03/16 06:00 11/03/16 06:40 Levaquin - PO 250 mg DAILY@0600 PAPI Administration Metoprolol Succinate 25 mg 11/01/16 10:00 11/02/16 21:49 Toprol Xl - PO 25 mg BID PAPI Administration ASSESSMENT/PLAN: This is a 51 year old male with admitted on 11/01 with fever, diarrhea, cough and syncope. 1. CARDS: Chronic biventricular systolic heart failure and diastolic heart failure -Cr is improved again today; will resume Torsemide at 20mg today -Current weight below dry weight -Appreciate cardiology consult HTN -Normotensive; continue metoprolol/isorsorbide/hydralazine HLD - Continue Atorvastatin 2. ID: PNA -Chest CT with infiltrate and air bronchogram -Being treated with Levaquin 250mg po daily -Remains afebrile -Quantiferon Gold has been sent and is pending 3. : DWAIN on CKD stage 4 with proteinuria -DWAIN likely prerenal 2/2 dehydration in the setting of diuretics and diarrhea -Cr continues to improve off diuretics; is 3.0 today -No LAURENT/ARB given advanced CKD -Appreciate nephrology consult 4. PULM: COPD -No active issues -Continue Symbicort 5. PSYCH: PSA -No active issues, no withdrawal symptoms -S/p recent detox 6. ENDO: IDDM -FS ACHS -ISS -Continue Levemir 30 units hs 7. F/E/N: -Diabetic, low sodium diet -Monitor electrolytes 8. Prophylaxis: -Heparin 5,000 units sq tid 9. Dispo: Will resume Torsemide at lower dose today; can discharge if cleared by cardiology/nephrology. CODE STATUS: FULL CODE Visit type - Emergency Visit Emergency Visit: Yes ED Registration Date: 11/02/16 Care time: The patient presented to the Emergency Department on the above date and was hospitalized for further evaluation of their emergent condition. - New Patient This patient is new to me today: Yes Date on this admission: 11/03/16 - Critical Care Critical Care patient: No
[2016-11-03 08:48] LABS: CALCIUM 8.1 mg/dL (8.5-10.1); MAGNESIUM 1.8 mg/dL (1.8-2.4); PHOSPHOROUS 3.7 mg/dL (2.5-4.9)
[2016-11-03 09:50] VITALS: BP 149/76; PULSE 4; TEMP 97.6
[2016-11-03] MEDS ORDERED: TORSEMIDE 20 MG TABLET (FP) PO SCH (10:00)
--- NOTE | 2016-11-03 10:30 | DS ---
[id number]/Zhou Pulse Ox Last 24 Hr 97.6 F-98.2 F 4-99 18-20 110-150/74-96 98-98 PHYSICAL EXAM GENERAL: The patient is awake, alert, and fully oriented, in no acute distress. HEAD: Normal with no signs of trauma. EYES: PERRL, extraocular movements intact, sclera anicteric, conjunctiva clear. ENT: Ears normal, nares patent, oropharynx clear without exudates, moist mucous membranes. NECK: Trachea midline, full range of motion, supple. LUNGS: Breath sounds equal, clear to auscultation bilaterally, no wheezes, no crackles, no accessory muscle use. HEART: Regular rate and rhythm, S1, S2 without murmur, rub or gallop. ABDOMEN: Soft, nontender, nondistended, normoactive bowel sounds, no guarding, no rebound, no hepatosplenomegaly, no masses. EXTREMITIES: 2+ pulses, warm, well-perfused, no edema. NEUROLOGICAL: Cranial nerves II through XII grossly intact. Normal speech, gait not observed. PSYCH: Normal mood, normal affect. SKIN: Warm, dry, normal turgor, no rashes or lesions noted. LABS Laboratory Results - last 24 hr 11/02/16 11/02/16 11/02/16 16:50 20:00 21:47 Sodium Potassium Chloride Carbon Dioxide Anion Gap BUN Creatinine POC Glucometer 196 231 Random Glucose Calcium Phosphorus Magnesium C-Reactive Protein 9.4 H 11/03/16 11/03/16 05:40 05:45 Sodium 140 Potassium 3.6 Chloride 101 Carbon Dioxide 27 Anion Gap 12 BUN 30 H Creatinine 3.0 H POC Glucometer 261 Random Glucose 203 H Calcium 8.1 L Phosphorus 3.7 Magnesium 1.8 C-Reactive Protein HOSPITAL COURSE: Date of Admission:11/02/16 Date of Discharge: 11/03/16 Minutes to complete discharge: 35 Discharge Summary Reason For Visit: HYPOKALEMIA HYPOMAGNESEMIA Current Active Problems Pneumonia (Acute) Condition: Improved - Instructions Diet, Activity, Other Instructions: -Continue all of your prescribed medications with the following changes: -Stop taking Torsemide 40mg daily, start taking 20mg daily -Take Levaquin as prescribed until you complete the course -Follow up with Dr. Jenkins in one week for repeat kidney function tests -Return here for difficulty breathing, fainting/near fainting, fever, or any other concerning symptoms Referrals: Trevor Jenkins MD [Staff Physician] - 1 Week (For repeat lab work) Rene Rodriguez MD [Staff Physician] - 2 Weeks Anderson Ojeda [Primary Care Provider] - 2 Weeks Disposition: HOME - Home Medications Comprehensive Discharge Medication List: Ambulatory Orders Albuterol Sulfate Inhaler - [Ventolin HFA Inhaler -] 2 inh IH Q4H PRN 01/21/12 Aspirin [Ecotrin] 81 mg PO DAILY 12/17/15 Fluticasone/Salmeterol [Advair 250-50 Diskus] 2 inh PO BID 12/17/15 Insulin (Levemir) [Levemir Vial] 30 units SQ HS 12/17/15 Insulin (Novolog) [Novolog -] 0 units SQ AC 12/17/15 Citalopram Hydrobromide [Celexa -] 40 mg PO DAILY 08/27/16 Atorvastatin Ca [Lipitor] 80 mg PO HS #14 tablet 09/07/16 Hydralazine HCl [Apresoline -] 50 mg PO TID #90 tablet 10/10/16 Isosorbide Mononitrate [Imdur -] 60 mg PO DAILY #30 tab.sr.24h 10/10/16 Metoprolol Succinate [Toprol XL -] 25 mg PO BID #60 tab.sr.24h 10/10/16 Aspirin Coated [Ecotrin -] 81 mg PO DAILY tablet.ec 11/03/16 Levofloxacin [Levaquin -] 250 mg PO DAILY #5 tablet 11/03/16 Torsemide [Demadex -] 20 mg PO DAILY #30 tablet 11/03/16 This patient is new to me today: No Emergency Visit: Yes ED Registration Date: 11/02/16 Care time: The patient presented to the Emergency Department on the above date and was hospitalized for further evaluation of their emergent condition. Critical Care patient: No - Discharge Referral Referred to [facility] Med P.C.: No
[2016-11-03] MEDS ORDERED: PT OWN MED DRAWER 7, Y5N ONE (10:42)
[2016-11-03] MEDS: ISOSORBIDE MONONITRATE 30 MG TAB.SR.24H (FP) PO SCH (10:42)
[2016-11-03] MEDS: ASPIRIN COATED 81 MG TABLET.EC PO SCH (10:42)
[2016-11-03] MEDS: CITALOPRAM HYDROBROMIDE 20 MG TABLET (FP) PO SCH (10:43)
[2016-11-03] MEDS: METOPROLOL SUCCINATE 25 MG TAB.SR.24H (FP) PO SCH (10:43)
[2016-11-03] MEDS: BUDESONIDE/FORMETEROL FUMARATE 160/4.5 mcg INHALER IH SCH (10:43)
--- NOTE | 2016-11-03 11:26 | PN ---
Progress Note (short form) - Note Progress Note: s: no cp sob palps dizzy o: Vital Signs Period Temp Pulse Resp BP Sys/Zhou Pulse Ox Last 24 Hr 97.6 F-98.2 F 4-99 18-20 110-150/74-96 98-98 NAD, calm JVD flat, neck supple regular nl s1, s2 no m/r/g cta bl, nl effort no edema cyanosis or clubbing no jaundice, diaphoresis aaox3 Current Medications Generic Name Dose Route Start Last Admin Trade Name Freq PRN Reason Stop Dose Admin Albuterol Sulfate 2 puff 11/01/16 03:59 11/02/16 05:49 Ventolin Hfa Inhaler - IH 2 puff Q4H PRN Administration SHORTNESS OF BREATH Aspirin 81 mg 11/01/16 10:00 11/03/16 10:42 Ecotrin - PO 81 mg DAILY PAPI Administration Atorvastatin Calcium 80 mg 11/01/16 22:00 11/02/16 21:49 Lipitor - PO 80 mg HS PAPI Administration Budesonide/Formoterol Fumarate 1 puff 11/01/16 10:00 11/03/16 10:43 Symbicort 160/4.5mcg - IH 1 puff BID PAPI Administration Citalopram Hydrobromide 40 mg 11/01/16 10:00 11/03/16 10:43 Celexa - PO 40 mg DAILY PAPI Administration Heparin Sodium (Porcine) 5,000 unit 11/02/16 14:00 11/03/16 06:40 Heparin - SQ 5,000 unit TID PAPI Administration Hydralazine HCl 50 mg 11/01/16 06:00 11/03/16 06:40 Apresoline - PO 50 mg TID PAPI Administration Insulin Aspart 1 vial 11/02/16 16:30 11/03/16 06:40 Novolog Vial Sliding Scale - SQ 4 units ACHS PAPI Administration Protocol Insulin Detemir 30 units 11/01/16 22:00 11/02/16 21:48 Levemir Vial SQ 30 units HS PAPI Administration Isosorbide Mononitrate 60 mg 11/01/16 10:00 11/03/16 10:42 Imdur - PO 60 mg DAILY PAPI Administration Levofloxacin 250 mg 11/03/16 06:00 11/03/16 06:40 Levaquin - PO 250 mg DAILY@0600 PAPI Administration Metoprolol Succinate 25 mg 11/01/16 10:00 11/03/16 10:43 Toprol Xl - PO 25 mg BID PAPI Administration Torsemide 20 mg 11/03/16 10:00 11/03/16 10:43 Demadex - PO 20 mg DAILY PAPI Administration CBC, BMP 11/02/16 06:10 11/03/16 05:45 EKG: stach, incomplete RBBB, lafb, non-sp t wave ab tele: sr CXR: new non-calcified opacity in rt parahilar region. 08/2016 echo: MIld concentric LVH, mod-severely reduced systolic function ( global). Moderately reduced RV systolic function. mild lae. mild-mod MR. Mod TR. RVSP 40-50. 08/2016 persantine stress: small inferior defect with subtle apical reversibility. LV cavity appears dilated with dyskinetic apex. EF 33%. a/p: 51 year old smoker etoh and crack user with history of biventricular cardiomyopathy (recent admit 08/2016 with cardiorenal requiring milrinone for diuresis), COPD/Asthma, HTN, HLD on zocor, R partial nephrectomy for cancer, CKD , IDDM, Hepatitis C s/p harvoni, remote Seizure history, Alcohol abuse, depression chronic back pain who presents with sob DWAIN on CKD with h/o R partial nephrectomy - likely 2/2 overdiuresis in setting of diarrhea and no cardiology follow up for diuretic adjustment. - cr back to baseline now, resume torsemide at lower dose of 20 qd biventricular systolic HF and diastolic HF exacerbation: - new dx of cardiomyopathy in August, NICM based on stress testing, had cardiorenal syndrome requiring milrinone for diuresis. D/c meds lasix 80 po bid , kcl, hydralazine. D/c weight 268 lbs. No lita/arb given ckd. Then 09/2016 admit, diuresis with lasix 80 mg IV daily and intermittent metolazone. D/c on torsemide 40mg/day. D/c weight 270 lbs (although pt states was 248 lbs on his home scale). - currently presented with mild hypovolemia so held diuretics. vol status at baseline now, resume resume torsemide 20 qd (lower dose then the 40 he was on) and he will need close outpt f/u to manage diuretic dosing (this was explained to pt). - cont metoprolol, imdur, hydralazine HTN - controlled on current meds HL - con't statin COPD - per pmd, currently with stable sx's. - new density on CXR, further work up per pmd ETOH/tobacco/crack use - cessation counseling. s/p recent detox. cardiac villa stable for dc
--- NOTE | 2016-11-03 12:20 | PN ---
Progress Note (short form) - Note Progress Note: Renal Follow up for DWAIN on CKD Pt seen and examined at the bedside feels well to be discharged home today Vital Signs Temperature 97.6 F 11/03/16 09:50 Pulse Rate 4 L 11/03/16 09:50 Respiratory Rate 20 11/03/16 09:50 Blood Pressure 149/76 11/03/16 09:50 O2 Sat by Pulse Oximetry (%) 98 11/03/16 09:00 Gen: NAD, awake and alert CVS: RRR, No M/R Lungs: Dec BS throughout the lung karimi, no rales Abd: soft, Obese, NT/ND Ext: Trace LE edema CBC, BMP 11/02/16 06:10 11/03/16 05:45 Laboratory Tests 11/03/16 05:45 Calcium 8.1 L Phosphorus 3.7 Magnesium 1.8 Current Medications Albuterol Sulfate (Ventolin Hfa Inhaler -) 2 puff IH Q4H PRN PRN Reason: SHORTNESS OF BREATH Last Admin: 11/02/16 05:49 Dose: 2 puff Aspirin (Ecotrin -) 81 mg PO DAILY [facility] Last Admin: 11/03/16 10:42 Dose: 81 mg Atorvastatin Calcium (Lipitor -) 80 mg PO HS [facility] Last Admin: 11/02/16 21:49 Dose: 80 mg Budesonide/Formoterol Fumarate (Symbicort 160/4.5mcg -) 1 puff IH BID [facility] Last Admin: 11/03/16 10:43 Dose: 1 puff Citalopram Hydrobromide (Celexa -) 40 mg PO DAILY [facility] Last Admin: 11/03/16 10:43 Dose: 40 mg Heparin Sodium (Porcine) (Heparin -) 5,000 unit SQ TID [facility] Last Admin: 11/03/16 06:40 Dose: 5,000 unit Hydralazine HCl (Apresoline -) 50 mg PO TID [facility] Last Admin: 11/03/16 06:40 Dose: 50 mg Insulin Aspart (Novolog Vial Sliding Scale -) 1 vial SQ [facility] PRN Reason: Protocol Last Admin: 11/03/16 12:04 Dose: 3 units Insulin Detemir (Levemir Vial) 30 units SQ HS [facility] Last Admin: 11/02/16 21:48 Dose: 30 units Isosorbide Mononitrate (Imdur -) 60 mg PO DAILY [facility] Last Admin: 11/03/16 10:42 Dose: 60 mg Levofloxacin (Levaquin -) 250 mg PO DAILY@0600 [facility] Last Admin: 11/03/16 06:40 Dose: 250 mg Metoprolol Succinate (Toprol Xl -) 25 mg PO BID [facility] Last Admin: 11/03/16 10:43 Dose: 25 mg Torsemide (Demadex -) 20 mg PO DAILY [facility] Last Admin: 11/03/16 10:43 Dose: 20 mg A/P 51 year old Gentleman with PMhx of CKD Stage 4 (baseline Cr 3.4-3.7), Partial right nephrectomy, CHF/Cardiomyopathy, COPD, Hypertension, IDDM, Hepatitis C who presents with complaints of diarrhea, dizziness, and lightheadedness and found to have BUN/Cr of 29/4 and K of 2.7. #DWAIN on CKD Stage 4 with nephrotic range proteinuria Renal function is improved resume Torsemide 20mg Daily advised to follow up in the office for repeat labs told to avoid NSAIDs and other nephrotoxins #Hypokalemia improved and stable #CHF No acute volume overload at this time restarted on Torsemide 20mg Daily Trevor Jenkins DO
== END 2016-11-03 14:44 | disposition home or self-care (01) | DRG 682 ==
LOC: JER 23:21 → JERBED 11-01 02:29 → UNDOADMOB 11-01 02:45 → J4W 11-01 17:50 → OBSVTOIN 11-02 14:29 → J4W 11-02 18:00
PROVIDERS: ADMIT Internal Medicine; ATTEND Registered Nurse Emergency
DX: N17.9 Acute kidney failure, unspecified (principal); J18.9 Pneumonia, unspecified organism; I13.0 Hypertensive heart and chronic kidney disease with heart failure and stage 1 through stage 4 chronic kidney disease, or unspecified chronic kidney disease; I50.42 Chronic combined systolic (congestive) and diastolic (congestive) heart failure; I42.8 Other cardiomyopathies; N18.4 Chronic kidney disease, stage 4 (severe); E87.6 Hypokalemia; E83.42 Hypomagnesemia; J44.9 Chronic obstructive pulmonary disease, unspecified; E78.5 Hyperlipidemia, unspecified; J45.909 Unspecified asthma, uncomplicated; M54.89 Other dorsalgia; E11.9 Type 2 diabetes mellitus without complications; K21.9 Gastro-esophageal reflux disease without esophagitis; F17.210 Nicotine dependence, cigarettes, uncomplicated; I25.10 Atherosclerotic heart disease of native coronary artery without angina pectoris; H54.8 Legal blindness, as defined in USA; H53.001 Unspecified amblyopia, right eye; F10.10 Alcohol abuse, uncomplicated; F32.89 Other specified depressive episodes; I50.9 Heart failure, unspecified; I45.19 Other right bundle-branch block; F14.10 Cocaine abuse, uncomplicated; Z90.5 Acquired absence of kidney; Z85.528 Personal history of other malignant neoplasm of kidney; Z79.4 Long term (current) use of insulin
CPT/HCPCS: 36415; 71010-TC; 71250-TC; 76870-TC; 80048; 80053; 81003; 81015; 82550; 82553; 83605; 83735; 83880; 84100; 84484; 85025; 85027; 86140; 86480; 87040; 87070; 87086; 87205; 87254; 87804; 87899; 93005; 93010; 99283-25; G0378; J1644

== ENCOUNTER 2017-07-12 09:45 | Inpatient (IN) | payer MEDICARE, OTHER ==
[2017-07-12 11:12] VITALS: BMI 41.8
--- NOTE | 2017-07-12 13:56 | HP ---
COWS - Scale Resting Pulse: 1= IL 81-100 Sweatin=Flushed/Facial Moisture Restless Observation: 3= Extraneous Movement Pupil Size: 2= Moderately Dilated Bone or Joint Aches: 2= Severe Diffuse Aches Runny Nose/ Eye Tearin= Runny Nose/Eyes GI Upset > 30mins: 3= Vomiting/Diarrhea Tremor Observation: 2= Slight Tremor Visible Yawning Observation: 2= >3x During Session Anxiety or Irritability: 2=Irritable/Anxious Goose Flesh Skin: 0=Smooth Skin COWS Score: 21 CIWA Score - CIWA Score Nausea/Vomitin Muscle Tremors: 3 Anxiety: 3 Agitation: 3 Paroxysmal Sweats: 2 Orientation: 0-Oriented Tacttile Disturbances: 2-Mild Itch/Numbness/Burn Auditory Disturbances: 2-Mild Harshness/Frighten Visual Disturbances: 2-Mild Sensitivity Headache: 2-Mild CIWA-Ar Total Score: 22 Admission ROS BHS - HPI Chief Complaint: i need help from heroin,alcohol and cocaine dependence Allergies/Adverse Reactions: Allergies Allergy/AdvReac Type Severity Reaction Status Date / Time codeine [Codeine] Allergy Severe Swelling Verified 07/12/17 11:58 iodine [Iodine] Allergy Severe Swelling Verified 07/12/17 11:58 shellfish derived Allergy Severe Swelling Verified 07/12/17 11:58 [Shellfish Derived] History of Present Illness: this 52 years old male with heroin,alcohol and cocaine dependence,seeking detox, last treatment 08/27/16 to 08/31/16 nicotine dependence htn,asthma,type 2 dm iddm anxiety and depression longest period of sobriety 8 months Exam Limitations: No Limitations - Ebola screening Have you traveled outside of the country in the last 21 days: No Have you been sick,other than usual withdrawal symptoms: No - Review of Systems Constitutional: Chills, Diaphoresis, Loss of Appetite, Malaise, Night Sweats, Changes in sleep, Weakness EENT: reports: Tearing, Nose Congestion Respiratory: reports: No Symptoms reported Cardiac: reports: Palpitations GI: reports: Diarrhea, Nausea, Vomiting, Abdominal cramping : reports: No Symptoms Reported Musculoskeletal: reports: Back Pain, Joint Pain, Muscle Pain Integumentary: reports: Dryness Neuro: reports: Headache, Tremors Endocrine: reports: No Symptoms Reported Hematology: reports: No Symptoms Reported Psychiatric: reports: No Sypmtoms Reported, Judgement Intact, Mood/Affect Appropiate, Anxious, Depressed Patient History - Patient Medical History Hx Anemia: No Hx Asthma: Yes Hx Chronic Obstructive Pulmonary Disease (COPD): Yes Hx Cancer: Yes (RT. KIDNEY in [place] 2010 on remission) Hx Cardiac Disorders: Yes (CHF) Hx Congestive Heart Failure: No Hx Hypertension: Yes (on meds.) Hx Hypercholesterolemia: Yes Hx Pacemaker: No HX Cerebrovascular Accident: No Hx Seizures: No Hx Dementia: No Hx Diabetes: Yes (IDDM Type II iddm) Hx Gastrointestinal Disorders: No Hx Liver Disease: Yes Hx Genitourinary Disorders: No Hx Sexually Transmitted Disorders: No Hx Renal Disease (ESRD): Yes (Chronic kidney disease) Hx Thyroid Disease: No Hx Human Immunodeficiency Virus (HIV): No Hx Hepatitis C: Yes (TREATED WITH HARVONI ON YEAR AGO IN REMISSION NOW(CLEARED0) Hx Depression: Yes Hx Suicide Attempt: No Hx Bipolar Disorder: No Hx Schizophrenia: No Other Medical History: no suicidal,no homicidal - Patient Surgical History Past Surgical History: Yes Hx Neurologic Surgery: No Hx Cataract Extraction: No Hx Cardiac Surgery: No Hx Lung Surgery: No Hx Breast Surgery: No Hx Breast Biopsy: No Hx Abdominal Surgery: No Hx Appendectomy: No Hx Cholecystectomy: No Hx Genitourinary Surgery: Yes (RT KIDNEY partial nephrectomy in 2011) Hx Section: No Hx Orthopedic Surgery: No Other Surgical History: RIGHT KIDNEY SX 04/17/2012 Anesthesia Reaction: No - PPD History Previous Implant?: Yes Documented Results: Negative w/proof Implanted On Prior R Admission?: Yes Date: 08/29/16 Results: 0 mm PPD to be Administered?: Yes - Smoking Cessation Smoking history: Current every day smoker Have you smoked in the past 12 months: Yes Aproximately how many cigarettes per day: 10 Cigars Per Day: 0 Hx Chewing Tobacco Use: No Initiated information on smoking cessation: Yes 'Breaking Loose' booklet given: 07/12/17 - Substance & Tx. History Hx Alcohol Use: Yes Hx Substance Use: Yes Substance Use Type: Alcohol, Cocaine, Heroin - Substances Abused Heroin Route: Inhalation Frequency: Daily Amount used: 7-8 bags Age of first use: 43 Date of Last Use: 07/11/17 Alcohol Route: Oral Frequency: Daily Amount used: 2-3 pints vodka Age of first use: 7 Date of Last Use: 07/11/17 Cocaine Route: Inhalation Frequency: Daily Amount used: $50 Age of first use: 25 Date of Last Use: 07/11/17 Family Disease History - Family Disease History Family Disease History: Heart Disease: Mother (HTN,ALCOHOL,, Was on Dialysis for 10 years before she ), Other: Mother Admission Physical Exam BHS - Vital Signs Vital Signs: Vital Signs - 24 hr 07/12/17 11:08 Temperature 98.2 F Pulse Rate 93 H Respiratory 20 Rate Blood Pressure 144/92 - Physical General Appearance: Yes: Moderate Distress, Tremorous, Irritable, Sweating, Anxious HEENTM: Yes: Normal ENT Inspection, Normocephalic, ROSENDO, Pharynx Normal Respiratory: Yes: Lungs Clear, Normal Breath Sounds, No Respiratory Distress Neck: Yes: Within Normal Limits, Supple, Trachea in good position Breast: Yes: Within Normal Limits Cardiology: Yes: Within Normal Limits, Regular Rhythm, Regular Rate, S1, S2 Abdominal: Yes: Within Normal Limits, Normal Bowel Sounds, Non Tender, Flat, Soft, Surgical Scar (s/p partial nephrectomy) Genitourinary: Yes: Within Normal Limits Back: Yes: Muscle Spasm Musculoskeletal: Yes: full range of Motion, Back pain, Muscle Pain Extremities: Yes: Tremors Neurological: Yes: 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 NML intact, Fully Oriented, Alert, Motor Strength 5/5 Integumentary: Yes: Dry Lymphatic: Yes: Within Normal Limits - Diagnostic (1) Opioid dependence with withdrawal Current Visit: Yes Status: Acute (2) Cocaine dependence Current Visit: Yes Status: Acute (3) Alcohol dependence with uncomplicated withdrawal Current Visit: Yes Status: Acute (4) HTN (hypertension) Current Visit: Yes Status: Chronic Qualifiers: Hypertension type: essential hypertension Qualified Code(s): I10 - Essential (primary) hypertension; I10 - Essential (primary) hypertension; I10 - Essential (primary) hypertension (5) Type II diabetes mellitus Current Visit: Yes Status: Chronic (6) History of partial nephrectomy Current Visit: Yes Status: Chronic (7) Hepatitis C Current Visit: Yes Status: Chronic Qualifiers: Viral hepatitis chronicity: unspecified Hepatic coma status: without hepatic coma Qualified Code(s): B19.20 - Unspecified viral hepatitis C without hepatic coma; B19.20 - Unspecified viral hepatitis C without hepatic coma (8) IDDM (insulin dependent diabetes mellitus) Current Visit: Yes Status: Chronic (9) Nicotine dependence Current Visit: Yes Status: Acute Qualifiers: Nicotine product type: cigarettes Substance use status: uncomplicated Qualified Code(s): F17.210 - Nicotine dependence, cigarettes, uncomplicated; F17.210 - Nicotine dependence, cigarettes, uncomplicated (10) Anxiety and depression Current Visit: Yes Status: Acute Cleared for Admission S - Detox or Rehab [facility] Level of Care: Medically Managed Detox Regimen/Protocol: Methadone/Valium S Breath Alcohol Content Breath Alcohol Content: 0 Urine Drug Screen - Results Drug Screen Negative: No Urine Drug Screen Results: NESTOR-Cocaine, OPI-Opiates, BZO-Benzodiazepines, OXY- Oxycodone
[2017-07-12] MEDS ORDERED: LOPERAMIDE HCL 2 MG CAPSULE PO PRN (14:12)
[2017-07-12] MEDS ORDERED: P-EPHED 60MG/TRIPROLIDI 2.5MG TABLET PO PRN (14:12)
[2017-07-12] MEDS ORDERED: MAGNESIUM HYDROX 2400MG/30ML ORAL SUSPENSION 30 ML CUP PO PRN (14:12)
[2017-07-12] MEDS ORDERED: MENTHOL/PHENOL 1 EACH UD MM PRN (14:12)
[2017-07-12] MEDS ORDERED: MAGNESIUM CITRATE 300 ML BOTTLE PO PRN (14:12)
[2017-07-12] MEDS ORDERED: diazePAM 5 MG TABLET PO PRN (14:12)
[2017-07-12] MEDS ORDERED: ACETAMINOPHEN 325 MG TABLET (FP) PO PRN (14:12)
[2017-07-12] MEDS ORDERED: diphenhydrAMINE HCL 50 MG CAPSULE PO PRN (14:12)
[2017-07-12] MEDS ORDERED: MAG HYDROX/AL HYDROX/SIMETH 30 ML UNIT-DOSE CUP PO PRN (14:12)
[2017-07-12] MEDS ORDERED: IBUPROFEN 400 MG TABLET (FP) PO PRN (14:12)
[2017-07-12] MEDS ORDERED: guaiFENesin/D-METHORPHAN HB 10 ML UNIT-DOSE CUPS PO PRN (14:12)
[2017-07-12] MEDS ORDERED: diazePAM 5 MG TABLET PO ONE (14:21)
[2017-07-12] MEDS ORDERED: METHADONE HCL 10 MG TABLET (FOR DETOX USE ONLY) PO ONE ×2 (14:40→23:00)
[2017-07-12] MEDS: FUROSEMIDE 40 MG TABLET (FP) PO SCH (15:16)
[2017-07-12] MEDS: ALBUTEROL SO4 18 GM HFA INHALER IH PRN (16:47)
[2017-07-12 16:56] LABS: HIV 1 & 2 AB NEGATIVE; HIV 1 AGp24 NEGATIVE
[2017-07-12] MEDS ORDERED: INSULIN (NOVOLOG) ASPART 100 UNITS/ML 10ML VIAL ONE ×2 (16:57→21:28)
--- NOTE | 2017-07-12 17:05 | CONSULT ---
[facility] Psychiatric Consult - Data Date of interview: 07/12/17 Admission source: [facility] Identifying data: Another admission to [facility] for this 52 y/o AA male seeking detoxification treatment for alcohol,heroin and cocaine dependence.Patient is single,a father of two,unemployed,domiciled and supported on [facility] benefits. Substance Abuse History: Discussed with patient in this session.Mr Acevedo confirmed an extensive history of dependence on alcohol,heroin and cocaine. Smoking history: Current every day smoker. Have you smoked in the past 12 months: Yes. Aproximately how many cigarettes per day: 10. Cigars Per Day: 0. Hx Chewing Tobacco Use: No. Initiated information on smoking cessation: Yes. 'Breaking Loose' booklet given: 07/12/17. - Substance & Tx. History. Hx Alcohol Use: Yes. Hx Substance Use: Yes. Substance Use Type: Alcohol, Cocaine , Heroin. - Substances Abused. Heroin. Route: Inhalation. Frequency: Daily. Amount used: 7-8 bags. Age of first use: 43. Date of Last Use: . Alcohol. Route: Oral. Frequency: Daily. Amount used: 2-3 pints vodka. Age of first use: 7. Date of Last Use: 07/11/17. Cocaine. Route: Inhalation. Frequency: Daily. Amount used: $50. Age of first use: 25. Date of Last Use: 07/11/17 Medical History: Hepatitis C (treated with harvoni),bronchial asthma,Ca of right kidney (partial nephrectomy at [facility] in 2010),hypertension,seizure disorder,diabetes mellitus and a history of treatment for gonorrhea (1990). Psychiatric History: Few psychiatric rehospitalizations ([facility] and [facility]).Onset of psychiatric disturbances : 1996.Diagnosed with MDD and Anxiety Disorder.Mr Acevedo used to be followed at [facility] mental health clinic ([facility]).Now awaiting referral to another provider (due to changes in coverage,as per self-report).Still maintained on celexa 40 mg po daily + abilify 2 mg/hs (confirmed by pharmacy claims of 05/21/17 at [facility]).No reported history of suicide attempts. Physical/Sexual Abuse/Trauma History: No history of abuse. Additional Comment: Urine Drug Screen Results: NESTOR-Cocaine, OPI-Opiates, BZO- Benzodiazepines, OXY-Oxycodone.Noted. Mental Status Exam - Mental Status Exam Alert and Oriented to: Time, Place, Person Cognitive Function: Good Patient Appearance: Well Groomed Mood: Hopeful, Euthymic Affect: Appropriate, Normal Range Patient Behavior: Fatigued, Cooperative Speech Pattern: Clear Voice Loudness: Normal Thought Process: Goal Oriented Thought Disorder: Not Present Hallucinations: Denies Suicidal Ideation: Denies Homicidal Ideation: Denies Insight/Judgement: Poor Sleep: Poorly, Difficulty falling asleep Appetite: Good Muscle strength/Tone: Normal Gait/Station: Normal Psychiatric Findings - Problem List ([place] 1, 2,3) (1) Opioid dependence with withdrawal Current Visit: Yes Status: Acute (2) Alcohol dependence with uncomplicated withdrawal Current Visit: Yes Status: Acute (3) Cocaine dependence Current Visit: Yes Status: Acute (4) Nicotine dependence Current Visit: Yes Status: Acute Qualifiers: Nicotine product type: cigarettes Substance use status: uncomplicated Qualified Code(s): F17.210 - Nicotine dependence, cigarettes, uncomplicated; F17.210 - Nicotine dependence, cigarettes, uncomplicated (5) Substance induced mood disorder Current Visit: Yes Status: Acute (6) MDD (major depressive disorder) Current Visit: Yes Status: Chronic (7) History of partial nephrectomy Current Visit: Yes Status: Chronic (8) Asthma Current Visit: Yes Status: Chronic Qualifiers: Asthma severity: mild intermittent Asthma complication type: uncomplicated (9) CHF (congestive heart failure) Current Visit: Yes Status: Chronic Qualifiers: Congestive heart failure type: unspecified congestive heart failure type Congestive heart failure chronicity: acute on chronic Qualified Code(s ): I50.9 - Heart failure, unspecified; I50.9 - Heart failure, unspecified; I50.9 - Heart failure, unspecified; I50.9 - Heart failure, unspecified (10) COPD (chronic obstructive pulmonary disease) Current Visit: Yes Status: Chronic Qualifiers: COPD type: unspecified COPD Qualified Code(s): J44.9 - Chronic obstructive pulmonary disease, unspecified; J44.9 - Chronic obstructive pulmonary disease, unspecified; J44.9 - Chronic obstructive pulmonary disease, unspecified; J44.9 - Chronic obstructive pulmonary disease, unspecified (11) HTN (hypertension) Current Visit: Yes Status: Chronic Qualifiers: Hypertension type: essential hypertension Qualified Code(s): I10 - Essential (primary) hypertension; I10 - Essential (primary) hypertension; I10 - Essential (primary) hypertension (12) Hepatitis C Current Visit: Yes Status: Chronic Qualifiers: Viral hepatitis chronicity: unspecified Hepatic coma status: without hepatic coma Qualified Code(s): B19.20 - Unspecified viral hepatitis C without hepatic coma; B19.20 - Unspecified viral hepatitis C without hepatic coma (13) IDDM (insulin dependent diabetes mellitus) Current Visit: Yes Status: Chronic (14) Type II diabetes mellitus Current Visit: Yes Status: Chronic (15) Chronic kidney disease (CKD) stage G3a/A3, moderately decreased glomerular filtration rate (GFR) between 45-59 mL/min/1.73 square meter and albuminuria creatinine ratio greater than 300 mg/g Current Visit: Yes Status: Chronic (16) Insomnia Current Visit: Yes Status: Acute - Initial Treatment Plan Initial Treatment Plan: Psychoeducation.Detoxification.Medications : celexa 40 mg po daily + abilify 2 mg po hs.Side effects/benefits are discussed with the patient.He agrees with careplan.Observation.
[2017-07-12] MEDS: INSULIN (NOVOLOG) ASPART 100 UNITS/ML 10ML VIAL SQ SCH ×2 (17:12→22:03)
[2017-07-12] MEDS ORDERED: ZOLPIDEM TARTRATE 10 MG TABLET (PARK CARE ONLY) PO PRN (17:31)
[2017-07-12 18:59] LABS: URINE APPEARANCE CLEAR; URINE BILIRUBIN NEGATIVE (NEGATIVE); URINE BLOOD NEGATIVE (NEGATIVE); URINE COLOR LTYELLOW; URINE GLUCOSE (UA) 1+ (NEGATIVE); URINE KETONE NEGATIVE (NEGATIVE); URINE NITRITE NEGATIVE (NEGATIVE); URINE UROBILINOGEN NEGATIVE mg/dL (0.2-1.0)
[2017-07-12 20:08] LABS: URINE PROTEIN 3+ (NEGATIVE)
[2017-07-12 20:11] LABS: URINE RBC 1 /hpf (0-3); URINE WBC 3 /hpf (3-5)
[2017-07-12] MEDS ORDERED: chlordiazePOXIDE HCL 25 MG CAPSULE PO PRN (20:17)
--- NOTE | 2017-07-12 20:25 | PN ---
S Progress Note Note: RECEIVED NURSE CALLED THAT THE PATIENT WANTS LIBRIUM, DOSE NOT WANT VALIUM CHART REVIEWED, PATIENT HAD VALIUM 10 MG AT 3 PM AND 6 PM DISCONTINUE ALL VALIUM BEGIN LIBRIUM 50 MG Q6H X 3 DOSE BEGIN AT 2300 TODAY MONITOR DROWSINESS PRIOR TO GIVE 2300 LIBRIUM TODAY CONTINUE ALCOHOL DETOX
[2017-07-12] MEDS ORDERED: ATORVASTATIN CA 40 MG TABLET (FP) ONE (21:10)
[2017-07-12 21:26] LABS: URINE LEUK ESTERASE Negative (NEGATIVE)
[2017-07-12] MEDS: THIAMINE HCL 100 MG TABLET (FP) PO SCH (21:59)
[2017-07-12] MEDS: ARIPiprazole 2 MG TABLET PO SCH (22:00)
[2017-07-12] MEDS: hydrALAZINE HCL 50 MG TABLET (FP) PO SCH (22:00)
[2017-07-12] MEDS: ATORVASTATIN CA 80 MG TABLET (FP) PO SCH (22:00)
[2017-07-12] MEDS ORDERED: diazePAM 5 MG TABLET PO SCH (22:00)
[2017-07-12] MEDS: chlordiazePOXIDE HCL 25 MG CAPSULE PO SCH (22:00)
[2017-07-12] MEDS: INSULIN DETEMIR 100 UNITS/ML MDV SQ SCH (22:03)
[2017-07-13] MEDS: hydrALAZINE HCL 50 MG TABLET (FP) PO SCH ×3 (05:23→22:11)
[2017-07-13] MEDS: FUROSEMIDE 40 MG TABLET (FP) PO SCH ×2 (05:23→14:15)
[2017-07-13] MEDS: chlordiazePOXIDE HCL 25 MG CAPSULE PO SCH ×3 (05:23→22:11)
[2017-07-13] MEDS: ALBUTEROL SO4 18 GM HFA INHALER IH PRN ×4 (05:28→22:10)
[2017-07-13] MEDS ORDERED: INSULIN (NOVOLOG) ASPART 100 UNITS/ML 10ML VIAL ONE ×2 (05:33→11:41)
[2017-07-13] MEDS: INSULIN (NOVOLOG) ASPART 100 UNITS/ML 10ML VIAL SQ SCH ×4 (07:51→22:13)
[2017-07-13] MEDS ORDERED: METHADONE HCL 10 MG TABLET (FOR DETOX USE ONLY) PO SCH (10:00)
[2017-07-13] MEDS: CITALOPRAM HYDROBROMIDE 20 MG TABLET (FP) PO SCH (10:24)
[2017-07-13] MEDS: PRENATAL VITAMINS W/ FOLIC ACID TABLET (FP) PO SCH (10:25)
[2017-07-13] MEDS: CARVEDILOL 6.25 MG TABLET (FP) PO SCH (10:25)
[2017-07-13] MEDS: ISOSORBIDE MONONITRATE 60 MG TAB.SR.24H (FP) PO SCH (10:25)
[2017-07-13] MEDS: ASPIRIN COATED 81 MG TABLET.EC PO SCH (10:25)
[2017-07-13] MEDS: INSULIN DETEMIR 100 UNITS/ML MDV SQ SCH ×2 (10:25→22:13)
[2017-07-13] MEDS ORDERED: INSULIN DETEMIR 100 UNITS/ML MDV SQ ONE (10:27)
[2017-07-13 11:01] LABS: MCH 25.8 pg (25.7-33.7); MCHC 32.2 g/dl (32.0-35.9); MEAN CELL VOLUME 80.2 fl (80-96); MEAN PLT VOLUME 8.8 fl (7.5-11.1); PLATELET COUNT 293 K/MM3 (134-434); RDW 14.6 % (11.9-15.9)
[2017-07-13 11:13] LABS: ALBUMIN 3.1 g/dl (3.4-5.0); ANION GAP 5 (8-16); BILIRUBIN,TOTAL 0.2 mg/dL (0.2-1.0); CALCIUM 8.5 mg/dL (8.5-10.1); CO2 33 mmol/L (21-32); CREATININE 3.9 mg/dL (0.7-1.3); GLUCOSE,RANDOM 205 mg/dL (74-106); SGOT/AST 13 U/L (15-37); SGPT/ALT 25 U/L (12-78); TOT PROT 6.2 g/dl (6.4-8.2)
[2017-07-13 11:14] LABS: ALK PHOS 103 U/L (45-117)
[2017-07-13] MEDS ORDERED: FLU VACCINE QUAD 60 MCG/0.5 ML (MDV 17-18) IM ONE (12:00)
--- NOTE | 2017-07-13 16:08 | PN ---
[facility] CIWA - CIWA Score Nausea/Vomitin-No Nausea/No Vomiting Muscle Tremors: 4-Moderate,w/Arms Extend Anxiety: 3 Agitation: 3 Paroxysmal Sweats: 3 Orientation: 0-Oriented Tacttile Disturbances: 2-Mild Itch/Numbness/Burn Auditory Disturbances: 2-Mild Harshness/Frighten Visual Disturbances: 2-Mild Sensitivity Headache: 0-None Present CIWA-Ar Total Score: 19 BHS COWS - Scale Resting Pulse: 1= [place] 81-100 Sweatin= Chills/Flushing Restless Observation: 1= Difficult to Sit Still Pupil Size: 0= Normal to Room Light Bone or Joint Aches: 0= None Runny Nose/ Eye Tearin= Nasal Congestion GI Upset > 30mins: 0= None Tremor Observation of Outstretched Hands: 2= Slight Tremor Visible Yawning Observation: 1= 1-2x During Session Anxiety or Irritability: 2=Irritable/Anxious Goose Flesh Skin: 3=Piloerection COWS Score: 12 S Progress Note (SOAP) Subjective: Interrupted sleep, Sweating, Tremors. Objective: PT. A & O X 3, OBSERVED AMBULATING ON UNIT. NO ACUTE DISTRESS. PT. DENIES CHEST PAIN. 07/13/17 16:02 Vital Signs Temperature 98 F 07/13/17 13:39 Pulse Rate 85 07/13/17 13:39 Respiratory Rate 18 07/13/17 13:39 Blood Pressure 140/82 07/13/17 13:39 O2 Sat by Pulse Oximetry (%) Laboratory Tests 07/12/17 07/12/17 07/12/17 12:12 12:30 17:30 WBC RBC Hgb Hct MCV MCH MCHC RDW Plt Count MPV Sodium Potassium Chloride Carbon Dioxide Anion Gap BUN Creatinine Creat Clearance w eGFR POC Glucometer 217 Random Glucose Calcium Total Bilirubin AST ALT Alkaline Phosphatase Total Protein Albumin Urine Color Ltyellow Urine Appearance Clear Urine pH 6.0 Ur Specific [place] 1.020 Urine Protein 3+ H Urine Glucose (UA) 1+ H Urine Ketones Negative Urine Blood Negative Urine Nitrite Negative Urine Bilirubin Negative Urine Urobilinogen Negative Ur Leukocyte Esterase Negative Urine RBC 1 Urine WBC 3 RPR Titer HIV 1&2 Antibody Screen Negative HIV P24 Antigen Negative 07/12/17 07/13/17 07/13/17 21:20 05:25 06:08 WBC 9.0 RBC 3.97 L Hgb 10.2 L Hct 31.8 L MCV 80.2 MCH 25.8 MCHC 32.2 RDW 14.6 Plt Count 293 D MPV 8.8 Sodium Potassium Chloride Carbon Dioxide Anion Gap BUN Creatinine Creat Clearance w eGFR POC Glucometer 230 154 Random Glucose Calcium Total Bilirubin AST ALT Alkaline Phosphatase Total Protein Albumin Urine Color Urine Appearance Urine pH Ur Specific [place] Urine Protein Urine Glucose (UA) Urine Ketones Urine Blood Urine Nitrite Urine Bilirubin Urine Urobilinogen Ur Leukocyte Esterase Urine RBC Urine WBC RPR Titer HIV 1&2 Antibody Screen HIV P24 Antigen 07/13/17 07/13/17 07/13/17 06:08 06:08 11:38 WBC RBC Hgb Hct MCV MCH MCHC RDW Plt Count MPV Sodium 144 Potassium 4.0 Chloride 106 Carbon Dioxide 33 H D Anion Gap 5 L BUN 28 H Creatinine 3.9 H D Creat Clearance w eGFR 16.25 POC Glucometer 295 Random Glucose 205 H Calcium 8.5 Total Bilirubin 0.2 AST 13 L ALT 25 Alkaline Phosphatase 103 Total Protein 6.2 L Albumin 3.1 L D Urine Color Urine Appearance Urine pH Ur Specific [place] Urine Protein Urine Glucose (UA) Urine Ketones Urine Blood Urine Nitrite Urine Bilirubin Urine Urobilinogen Ur Leukocyte Esterase Urine RBC Urine WBC RPR Titer Nonreactive HIV 1&2 Antibody Screen HIV P24 Antigen LABS NOTED. PATIENT REPORTS HISTORY OF CHRONIC DISEASE. 07/13/17 16:13 07/13/17 16:13 Assessment: 07/13/17 16:03 WITHDRAWAL SYMPTOMS. Plan: CONTINUE DETOX. D/C MAGNESIUM-CONTAINING MEDS.
[2017-07-13] MEDS ORDERED: ATORVASTATIN CA 40 MG TABLET (FP) ONE (21:19)
[2017-07-13] MEDS ORDERED: ALBUTEROL SO4 2.5/IPRATROPIUM 0.5 INH SOL 3 ML VIAL.NEB. NEB PRN (21:47)
[2017-07-13] MEDS: ATORVASTATIN CA 80 MG TABLET (FP) PO SCH (22:11)
[2017-07-13] MEDS: THIAMINE HCL 100 MG TABLET (FP) PO SCH (22:11)
[2017-07-13] MEDS: ARIPiprazole 2 MG TABLET PO SCH (22:13)
[2017-07-14] MEDS: hydrALAZINE HCL 50 MG TABLET (FP) PO SCH ×3 (05:37→22:17)
[2017-07-14] MEDS: FUROSEMIDE 40 MG TABLET (FP) PO SCH ×2 (05:37→13:32)
[2017-07-14] MEDS: chlordiazePOXIDE HCL 25 MG CAPSULE PO SCH ×3 (05:37→17:27)
[2017-07-14] MEDS: ALBUTEROL SO4 18 GM HFA INHALER IH PRN ×3 (05:37→17:30)
[2017-07-14] MEDS: INSULIN (NOVOLOG) ASPART 100 UNITS/ML 10ML VIAL SQ SCH ×4 (06:47→22:16)
--- NOTE | 2017-07-14 09:10 | EKG ---
Test Reason : Blood Pressure : / mmHG Vent. Rate : 092 BPM Atrial Rate : 092 BPM P-R Int : 166 ms QRS Dur : 092 ms QT Int : 396 ms P-R-T Axes : 043 -27 085 degrees QTc Int : 489 ms NORMAL SINUS RHYTHM POSSIBLE LEFT ATRIAL ENLARGEMENT PROLONGED QT ABNORMAL ECG WHEN COMPARED WITH ECG OF 01-NOV-2016 01:42, INCOMPLETE RIGHT BUNDLE BRANCH BLOCK IS NO LONGER PRESENT Confirmed by KARRIE POSADAS, AMY ([id number]) on 07/14/2017 9:10:39 AM Referred By: Silvestre Dickey Confirmed By:AMY YOON MD
[2017-07-14] MEDS ORDERED: diazePAM 5 MG TABLET PO SCH (10:00)
[2017-07-14] MEDS: ASPIRIN COATED 81 MG TABLET.EC PO SCH (10:24)
[2017-07-14] MEDS: CITALOPRAM HYDROBROMIDE 20 MG TABLET (FP) PO SCH (10:24)
[2017-07-14] MEDS: CARVEDILOL 6.25 MG TABLET (FP) PO SCH (10:24)
[2017-07-14] MEDS: PRENATAL VITAMINS W/ FOLIC ACID TABLET (FP) PO SCH (10:24)
[2017-07-14] MEDS: METHADONE HCL 5 MG TABLET (FOR DETOX USE ONLY) PO SCH (10:25)
[2017-07-14] MEDS: ISOSORBIDE MONONITRATE 60 MG TAB.SR.24H (FP) PO SCH (10:25)
[2017-07-14] MEDS: INSULIN DETEMIR 100 UNITS/ML MDV SQ SCH ×2 (10:25→22:17)
[2017-07-14] MEDS ORDERED: INSULIN (NOVOLOG) ASPART 100 UNITS/ML 10ML VIAL ONE ×2 (11:41→16:39)
--- NOTE | 2017-07-14 15:16 | PN ---
S CIWA - CIWA Score Nausea/Vomitin Muscle Tremors: 4-Moderate,w/Arms Extend Anxiety: 2 Agitation: 4-Moderately Restless Paroxysmal Sweats: 3 Orientation: 0-Oriented Tacttile Disturbances: 1-Very Mild Itch/Numbness Auditory Disturbances: 0-None Visual Disturbances: 0-None Headache: 1-Very Mild CIWA-Ar Total Score: 17 BHS COWS - Scale Resting Pulse: 1= [place] 81-100 Sweatin=Flushed/Facial Moisture Restless Observation: 3= Extraneous Movement Pupil Size: 0= Normal to Room Light Bone or Joint Aches: 2= Severe Diffuse Aches Runny Nose/ Eye Tearin= Nasal Congestion GI Upset > 30mins: 3= Vomiting/Diarrhea Tremor Observation of Outstretched Hands: 2= Slight Tremor Visible Yawning Observation: 1= 1-2x During Session Anxiety or Irritability: 2=Irritable/Anxious Goose Flesh Skin: 0=Smooth Skin COWS Score: 17 S Progress Note (SOAP) Subjective: Tremor, chills, diarrhea, anxious, nausea Objective: 07/14/17 15:12 Last Vital Signs Temp Pulse Resp BP Pulse Ox 96.6 F L 96 H 18 152/95 07/14/17 12:48 07/14/17 12:48 07/14/17 12:48 07/14/17 12:48 Laboratory Tests 07/12/17 07/12/17 07/12/17 12:12 12:30 17:30 WBC RBC Hgb Hct MCV MCH MCHC RDW Plt Count MPV Sodium Potassium Chloride Carbon Dioxide Anion Gap BUN Creatinine Creat Clearance w eGFR POC Glucometer 217 Random Glucose Calcium Total Bilirubin AST ALT Alkaline Phosphatase Total Protein Albumin Urine Color Ltyellow Urine Appearance Clear Urine pH 6.0 Ur Specific [place] 1.020 Urine Protein 3+ H Urine Glucose (UA) 1+ H Urine Ketones Negative Urine Blood Negative Urine Nitrite Negative Urine Bilirubin Negative Urine Urobilinogen Negative Ur Leukocyte Esterase Negative Urine RBC 1 Urine WBC 3 RPR Titer HIV 1&2 Antibody Screen Negative HIV P24 Antigen Negative 07/12/17 07/13/17 07/13/17 21:20 05:25 06:08 WBC 9.0 RBC 3.97 L Hgb 10.2 L Hct 31.8 L MCV 80.2 MCH 25.8 MCHC 32.2 RDW 14.6 Plt Count 293 D MPV 8.8 Sodium Potassium Chloride Carbon Dioxide Anion Gap BUN Creatinine Creat Clearance w eGFR POC Glucometer 230 154 Random Glucose Calcium Total Bilirubin AST ALT Alkaline Phosphatase Total Protein Albumin Urine Color Urine Appearance Urine pH Ur Specific [place] Urine Protein Urine Glucose (UA) Urine Ketones Urine Blood Urine Nitrite Urine Bilirubin Urine Urobilinogen Ur Leukocyte Esterase Urine RBC Urine WBC RPR Titer HIV 1&2 Antibody Screen HIV P24 Antigen 07/13/17 07/13/17 07/13/17 06:08 06:08 11:38 WBC RBC Hgb Hct MCV MCH MCHC RDW Plt Count MPV Sodium 144 Potassium 4.0 Chloride 106 Carbon Dioxide 33 H D Anion Gap 5 L BUN 28 H Creatinine 3.9 H D Creat Clearance w eGFR 16.25 POC Glucometer 295 Random Glucose 205 H Calcium 8.5 Total Bilirubin 0.2 AST 13 L ALT 25 Alkaline Phosphatase 103 Total Protein 6.2 L Albumin 3.1 L D Urine Color Urine Appearance Urine pH Ur Specific [place] Urine Protein Urine Glucose (UA) Urine Ketones Urine Blood Urine Nitrite Urine Bilirubin Urine Urobilinogen Ur Leukocyte Esterase Urine RBC Urine WBC RPR Titer Nonreactive HIV 1&2 Antibody Screen HIV P24 Antigen 07/13/17 07/13/17 07/14/17 16:22 21:44 05:36 WBC RBC Hgb Hct MCV MCH MCHC RDW Plt Count MPV Sodium Potassium Chloride Carbon Dioxide Anion Gap BUN Creatinine Creat Clearance w eGFR POC Glucometer 116 129 90 Random Glucose Calcium Total Bilirubin AST ALT Alkaline Phosphatase Total Protein Albumin Urine Color Urine Appearance Urine pH Ur Specific [place] Urine Protein Urine Glucose (UA) Urine Ketones Urine Blood Urine Nitrite Urine Bilirubin Urine Urobilinogen Ur Leukocyte Esterase Urine RBC Urine WBC RPR Titer HIV 1&2 Antibody Screen HIV P24 Antigen 07/14/17 11:37 WBC RBC Hgb Hct MCV MCH MCHC RDW Plt Count MPV Sodium Potassium Chloride Carbon Dioxide Anion Gap BUN Creatinine Creat Clearance w eGFR POC Glucometer 153 Random Glucose Calcium Total Bilirubin AST ALT Alkaline Phosphatase Total Protein Albumin Urine Color Urine Appearance Urine pH Ur Specific [place] Urine Protein Urine Glucose (UA) Urine Ketones Urine Blood Urine Nitrite Urine Bilirubin Urine Urobilinogen Ur Leukocyte Esterase Urine RBC Urine WBC RPR Titer HIV 1&2 Antibody Screen HIV P24 Antigen Labs noted: bun 28, serum creatinine 3.9, GFR 16.25, serum glucose 205; UA: 3+ protein and 1+ glucose Assessment: 07/14/17 15:16 Withdrawal symptoms Noted with renal failure, hyperglycemia, proteinuria and glycosuria Plan: Continue detox Chronic renal failure; Proteinuria secondary to ESRD: follow up with PCP/ [employer] post discharge for management Hyperglycemia, glycosuria secondary to DMT2: continue diabetic regimen
[2017-07-14] MEDS: ATORVASTATIN CA 80 MG TABLET (FP) PO SCH (22:16)
[2017-07-14] MEDS: chlordiazePOXIDE 5 MG CAPSULE PO SCH (22:16)
[2017-07-14] MEDS: THIAMINE HCL 100 MG TABLET (FP) PO SCH (22:16)
[2017-07-14] MEDS: ARIPiprazole 2 MG TABLET PO SCH (22:17)
[2017-07-15] MEDS: FUROSEMIDE 40 MG TABLET (FP) PO SCH ×2 (05:56→14:59)
[2017-07-15] MEDS: chlordiazePOXIDE 5 MG CAPSULE PO SCH ×3 (05:56→17:35)
[2017-07-15] MEDS: hydrALAZINE HCL 50 MG TABLET (FP) PO SCH ×3 (05:56→22:46)
[2017-07-15] MEDS: INSULIN (NOVOLOG) ASPART 100 UNITS/ML 10ML VIAL SQ SCH ×4 (08:03→22:46)
[2017-07-15] MEDS: ISOSORBIDE MONONITRATE 60 MG TAB.SR.24H (FP) PO SCH (10:35)
[2017-07-15] MEDS: ASPIRIN COATED 81 MG TABLET.EC PO SCH (10:35)
[2017-07-15] MEDS: CITALOPRAM HYDROBROMIDE 20 MG TABLET (FP) PO SCH (10:35)
[2017-07-15] MEDS: PRENATAL VITAMINS W/ FOLIC ACID TABLET (FP) PO SCH (10:35)
[2017-07-15] MEDS: CARVEDILOL 6.25 MG TABLET (FP) PO SCH (10:35)
[2017-07-15] MEDS: METHADONE HCL 5 MG TABLET (FOR DETOX USE ONLY) PO SCH (10:36)
[2017-07-15] MEDS: INSULIN DETEMIR 100 UNITS/ML MDV SQ SCH ×2 (10:41→22:46)
[2017-07-15] MEDS ORDERED: INSULIN (NOVOLOG) ASPART 100 UNITS/ML 10ML VIAL ONE ×2 (11:11→17:34)
--- NOTE | 2017-07-15 11:40 | PN ---
[facility] Progress Note (SOAP) Subjective: Fatigue, Sweating. Objective: PT. A & O X 3. NO ACUTE DISTRESS. 07/15/17 11:37 Vital Signs Temperature 96.5 F L 07/15/17 09:19 Pulse Rate 100 H 07/15/17 09:19 Respiratory Rate 18 07/15/17 09:19 Blood Pressure 155/106 07/15/17 09:19 O2 Sat by Pulse Oximetry (%) Laboratory Tests 07/12/17 07/12/17 07/12/17 12:12 12:30 16:25 WBC RBC Hgb Hct MCV MCH MCHC RDW Plt Count MPV Sodium Potassium Chloride Carbon Dioxide Anion Gap BUN Creatinine Creat Clearance w eGFR POC Glucometer 217 262 Random Glucose Calcium Total Bilirubin AST ALT Alkaline Phosphatase Total Protein Albumin Urine Color Urine Appearance Urine pH Ur Specific [place] Urine Protein Urine Glucose (UA) Urine Ketones Urine Blood Urine Nitrite Urine Bilirubin Urine Urobilinogen Ur Leukocyte Esterase Urine RBC Urine WBC RPR Titer HIV 1&2 Antibody Screen Negative HIV P24 Antigen Negative 07/12/17 07/12/17 07/13/17 17:30 21:20 05:25 WBC RBC Hgb Hct MCV MCH MCHC RDW Plt Count MPV Sodium Potassium Chloride Carbon Dioxide Anion Gap BUN Creatinine Creat Clearance w eGFR POC Glucometer 230 154 Random Glucose Calcium Total Bilirubin AST ALT Alkaline Phosphatase Total Protein Albumin Urine Color Ltyellow Urine Appearance Clear Urine pH 6.0 Ur Specific [place] 1.020 Urine Protein 3+ H Urine Glucose (UA) 1+ H Urine Ketones Negative Urine Blood Negative Urine Nitrite Negative Urine Bilirubin Negative Urine Urobilinogen Negative Ur Leukocyte Esterase Negative Urine RBC 1 Urine WBC 3 RPR Titer HIV 1&2 Antibody Screen HIV P24 Antigen 07/13/17 07/13/17 07/13/17 06:08 06:08 06:08 WBC 9.0 RBC 3.97 L Hgb 10.2 L Hct 31.8 L MCV 80.2 MCH 25.8 MCHC 32.2 RDW 14.6 Plt Count 293 D MPV 8.8 Sodium 144 Potassium 4.0 Chloride 106 Carbon Dioxide 33 H D Anion Gap 5 L BUN 28 H Creatinine 3.9 H D Creat Clearance w eGFR 16.25 POC Glucometer Random Glucose 205 H Calcium 8.5 Total Bilirubin 0.2 AST 13 L ALT 25 Alkaline Phosphatase 103 Total Protein 6.2 L Albumin 3.1 L D Urine Color Urine Appearance Urine pH Ur Specific [place] Urine Protein Urine Glucose (UA) Urine Ketones Urine Blood Urine Nitrite Urine Bilirubin Urine Urobilinogen Ur Leukocyte Esterase Urine RBC Urine WBC RPR Titer Nonreactive HIV 1&2 Antibody Screen HIV P24 Antigen 07/13/17 07/13/17 07/13/17 11:38 16:22 21:44 WBC RBC Hgb Hct MCV MCH MCHC RDW Plt Count MPV Sodium Potassium Chloride Carbon Dioxide Anion Gap BUN Creatinine Creat Clearance w eGFR POC Glucometer 295 116 129 Random Glucose Calcium Total Bilirubin AST ALT Alkaline Phosphatase Total Protein Albumin Urine Color Urine Appearance Urine pH Ur Specific [place] Urine Protein Urine Glucose (UA) Urine Ketones Urine Blood Urine Nitrite Urine Bilirubin Urine Urobilinogen Ur Leukocyte Esterase Urine RBC Urine WBC RPR Titer HIV 1&2 Antibody Screen HIV P24 Antigen 07/14/17 07/14/17 07/14/17 05:36 11:37 16:12 WBC RBC Hgb Hct MCV MCH MCHC RDW Plt Count MPV Sodium Potassium Chloride Carbon Dioxide Anion Gap BUN Creatinine Creat Clearance w eGFR POC Glucometer 90 153 190 Random Glucose Calcium Total Bilirubin AST ALT Alkaline Phosphatase Total Protein Albumin Urine Color Urine Appearance Urine pH Ur Specific [place] Urine Protein Urine Glucose (UA) Urine Ketones Urine Blood Urine Nitrite Urine Bilirubin Urine Urobilinogen Ur Leukocyte Esterase Urine RBC Urine WBC RPR Titer HIV 1&2 Antibody Screen HIV P24 Antigen 07/14/17 07/15/17 07/15/17 21:27 05:55 11:05 WBC RBC Hgb Hct MCV MCH MCHC RDW Plt Count MPV Sodium Potassium Chloride Carbon Dioxide Anion Gap BUN Creatinine Creat Clearance w eGFR POC Glucometer 117 132 263 Random Glucose Calcium Total Bilirubin AST ALT Alkaline Phosphatase Total Protein Albumin Urine Color Urine Appearance Urine pH Ur Specific [place] Urine Protein Urine Glucose (UA) Urine Ketones Urine Blood Urine Nitrite Urine Bilirubin Urine Urobilinogen Ur Leukocyte Esterase Urine RBC Urine WBC RPR Titer HIV 1&2 Antibody Screen HIV P24 Antigen LABS NOTED. Assessment: 07/15/17 11:38 WITHDRAWAL SYMPTOMS. ANEMIA. RENAL INSUFFICIENCY. HYPERGLYCEMIA. 07/15/17 11:40 Plan: CONTINUE DETOX. PATIENT CURRENTLY RECEIVING DAILY MVI CONTAINING IRON.
[2017-07-15] MEDS ORDERED: ATORVASTATIN CA 40 MG TABLET (FP) ONE (21:17)
[2017-07-15] MEDS: ATORVASTATIN CA 80 MG TABLET (FP) PO SCH (22:46)
[2017-07-15] MEDS: THIAMINE HCL 100 MG TABLET (FP) PO SCH (22:46)
[2017-07-15] MEDS: ARIPiprazole 2 MG TABLET PO SCH (22:46)
[2017-07-15] MEDS: chlordiazePOXIDE HCL 10 MG CAPSULE PO SCH (22:47)
[2017-07-16] MEDS: hydrALAZINE HCL 50 MG TABLET (FP) PO SCH (06:02)
[2017-07-16] MEDS: FUROSEMIDE 40 MG TABLET (FP) PO SCH (06:02)
[2017-07-16] MEDS: chlordiazePOXIDE HCL 10 MG CAPSULE PO SCH ×2 (06:12→11:54)
[2017-07-16] MEDS: INSULIN (NOVOLOG) ASPART 100 UNITS/ML 10ML VIAL SQ SCH ×2 (06:12→12:27)
[2017-07-16 09:12] VITALS: PULSE 99
[2017-07-16] MEDS ORDERED: diazePAM 5 MG TABLET PO SCH (10:00)
[2017-07-16] MEDS ORDERED: METHADONE HCL 10 MG TABLET (FOR DETOX USE ONLY) PO SCH (10:00)
[2017-07-16] MEDS: CARVEDILOL 6.25 MG TABLET (FP) PO SCH (11:52)
[2017-07-16] MEDS: CITALOPRAM HYDROBROMIDE 20 MG TABLET (FP) PO SCH (11:52)
[2017-07-16] MEDS: PRENATAL VITAMINS W/ FOLIC ACID TABLET (FP) PO SCH (11:53)
[2017-07-16] MEDS: ISOSORBIDE MONONITRATE 60 MG TAB.SR.24H (FP) PO SCH (11:53)
[2017-07-16] MEDS: ASPIRIN COATED 81 MG TABLET.EC PO SCH (11:53)
[2017-07-16] MEDS: INSULIN DETEMIR 100 UNITS/ML MDV SQ SCH (12:01)
[2017-07-16 13:21] VITALS: BP 169/113; TEMP 98.2
--- NOTE | 2017-07-16 18:37 | DS ---
[facility] Detox Discharge Summary Admission Date: 07/12/17 Discharge Date: 07/16/17 - History Present History: Alcohol Dependence, Cocaine Dependence, Opioid Dependence Additional Comments: PATIENT WILL GO TO OUTPATIENT PROGRAM (PT. UNABLE TO RECALL NAME OF PROGRAM AT THIS TIME) IN [facility]. PATIENT ALSO ADVISED TO FOLLOW- UP WITH [facility] DR. ISAAC IN [facility] AFTER DISCHARGE FROM DETOX FOR GENERAL MEDICAL ASSESSMENT AND FOR FOLLOW-UP FOR HISTORY OF HTN, DM, AND FOR ABNORMAL RENAL LABS DRAWN WHILE ADMITTED TO DETOX. COPIES OF ALL LABS DRAWN WHILE ADMITTED FOR DETOX GIVEN TO PATIENT AT TIME OF DISCHARGE. PATIENT WAS DISCHARGED FROM DETOX UNIT IN STABLE MEDICAL CONDITION. Pertinent Past History: Asthma, COPD, HTN, CHF, Depression, Insomnia, CKD, History of Renal Cancer, History of Partial Nephrectomy of Right Kidney, Nicotine Dependence, Hep C ( Treated); Hypercholesterolemia. - Physical Exam Results Vital Signs: Vital Signs Temperature 98.2 F 07/16/17 13:19 Pulse Rate 99 H 07/16/17 13:19 Respiratory Rate 18 07/16/17 13:19 Blood Pressure 169/113 07/16/17 13:19 O2 Sat by Pulse Oximetry (%) Pertinent Admission Physical Exam Findings: WITHDRAWAL SYMPTOMS. Laboratory Tests 07/12/17 07/12/17 07/12/17 12:12 12:30 16:25 WBC RBC Hgb Hct MCV MCH MCHC RDW Plt Count MPV Sodium Potassium Chloride Carbon Dioxide Anion Gap BUN Creatinine Creat Clearance w eGFR POC Glucometer 217 262 Random Glucose Calcium Total Bilirubin AST ALT Alkaline Phosphatase Total Protein Albumin Urine Color Urine Appearance Urine pH Ur Specific [place] Urine Protein Urine Glucose (UA) Urine Ketones Urine Blood Urine Nitrite Urine Bilirubin Urine Urobilinogen Ur Leukocyte Esterase Urine RBC Urine WBC RPR Titer HIV 1&2 Antibody Screen Negative HIV P24 Antigen Negative 07/12/17 07/12/17 07/13/17 17:30 21:20 05:25 WBC RBC Hgb Hct MCV MCH MCHC RDW Plt Count MPV Sodium Potassium Chloride Carbon Dioxide Anion Gap BUN Creatinine Creat Clearance w eGFR POC Glucometer 230 154 Random Glucose Calcium Total Bilirubin AST ALT Alkaline Phosphatase Total Protein Albumin Urine Color Ltyellow Urine Appearance Clear Urine pH 6.0 Ur Specific [place] 1.020 Urine Protein 3+ H Urine Glucose (UA) 1+ H Urine Ketones Negative Urine Blood Negative Urine Nitrite Negative Urine Bilirubin Negative Urine Urobilinogen Negative Ur Leukocyte Esterase Negative Urine RBC 1 Urine WBC 3 RPR Titer HIV 1&2 Antibody Screen HIV P24 Antigen 07/13/17 07/13/17 07/13/17 06:08 06:08 06:08 WBC 9.0 RBC 3.97 L Hgb 10.2 L Hct 31.8 L MCV 80.2 MCH 25.8 MCHC 32.2 RDW 14.6 Plt Count 293 D MPV 8.8 Sodium 144 Potassium 4.0 Chloride 106 Carbon Dioxide 33 H D Anion Gap 5 L BUN 28 H Creatinine 3.9 H D Creat Clearance w eGFR 16.25 POC Glucometer Random Glucose 205 H Calcium 8.5 Total Bilirubin 0.2 AST 13 L ALT 25 Alkaline Phosphatase 103 Total Protein 6.2 L Albumin 3.1 L D Urine Color Urine Appearance Urine pH Ur Specific [place] Urine Protein Urine Glucose (UA) Urine Ketones Urine Blood Urine Nitrite Urine Bilirubin Urine Urobilinogen Ur Leukocyte Esterase Urine RBC Urine WBC RPR Titer Nonreactive HIV 1&2 Antibody Screen HIV P24 Antigen 07/13/17 07/13/17 07/13/17 11:38 16:22 21:44 WBC RBC Hgb Hct MCV MCH MCHC RDW Plt Count MPV Sodium Potassium Chloride Carbon Dioxide Anion Gap BUN Creatinine Creat Clearance w eGFR POC Glucometer 295 116 129 Random Glucose Calcium Total Bilirubin AST ALT Alkaline Phosphatase Total Protein Albumin Urine Color Urine Appearance Urine pH Ur Specific [place] Urine Protein Urine Glucose (UA) Urine Ketones Urine Blood Urine Nitrite Urine Bilirubin Urine Urobilinogen Ur Leukocyte Esterase Urine RBC Urine WBC RPR Titer HIV 1&2 Antibody Screen HIV P24 Antigen 07/14/17 07/14/17 07/14/17 05:36 11:37 16:12 WBC RBC Hgb Hct MCV MCH MCHC RDW Plt Count MPV Sodium Potassium Chloride Carbon Dioxide Anion Gap BUN Creatinine Creat Clearance w eGFR POC Glucometer 90 153 190 Random Glucose Calcium Total Bilirubin AST ALT Alkaline Phosphatase Total Protein Albumin Urine Color Urine Appearance Urine pH Ur Specific [place] Urine Protein Urine Glucose (UA) Urine Ketones Urine Blood Urine Nitrite Urine Bilirubin Urine Urobilinogen Ur Leukocyte Esterase Urine RBC Urine WBC RPR Titer HIV 1&2 Antibody Screen HIV P24 Antigen 07/14/17 07/15/17 07/15/17 21:27 05:55 11:05 WBC RBC Hgb Hct MCV MCH MCHC RDW Plt Count MPV Sodium Potassium Chloride Carbon Dioxide Anion Gap BUN Creatinine Creat Clearance w eGFR POC Glucometer 117 132 263 Random Glucose Calcium Total Bilirubin AST ALT Alkaline Phosphatase Total Protein Albumin Urine Color Urine Appearance Urine pH Ur Specific [place] Urine Protein Urine Glucose (UA) Urine Ketones Urine Blood Urine Nitrite Urine Bilirubin Urine Urobilinogen Ur Leukocyte Esterase Urine RBC Urine WBC RPR Titer HIV 1&2 Antibody Screen HIV P24 Antigen 07/15/17 07/15/17 07/16/17 16:18 21:44 06:02 WBC RBC Hgb Hct MCV MCH MCHC RDW Plt Count MPV Sodium Potassium Chloride Carbon Dioxide Anion Gap BUN Creatinine Creat Clearance w eGFR POC Glucometer 179 73 113 Random Glucose Calcium Total Bilirubin AST ALT Alkaline Phosphatase Total Protein Albumin Urine Color Urine Appearance Urine pH Ur Specific [place] Urine Protein Urine Glucose (UA) Urine Ketones Urine Blood Urine Nitrite Urine Bilirubin Urine Urobilinogen Ur Leukocyte Esterase Urine RBC Urine WBC RPR Titer HIV 1&2 Antibody Screen HIV P24 Antigen 07/16/17 12:07 WBC RBC Hgb Hct MCV MCH MCHC RDW Plt Count MPV Sodium Potassium Chloride Carbon Dioxide Anion Gap BUN Creatinine Creat Clearance w eGFR POC Glucometer 160 Random Glucose Calcium Total Bilirubin AST ALT Alkaline Phosphatase Total Protein Albumin Urine Color Urine Appearance Urine pH Ur Specific [place] Urine Protein Urine Glucose (UA) Urine Ketones Urine Blood Urine Nitrite Urine Bilirubin Urine Urobilinogen Ur Leukocyte Esterase Urine RBC Urine WBC RPR Titer HIV 1&2 Antibody Screen HIV P24 Antigen LABS NOTED. - Treatment Hospital Course: Detox Protocol Followed, Detoxed Safely, Responded well, Discharged Condition Good Patient has Accepted a Rehab Referral to: NO. PT WILL GO TO OUTPATIENT PROGRAM IN [facility]. - Medication Discharge Medications: Ambulatory Orders Albuterol Sulfate Inhaler - [Ventolin HFA Inhaler -] 2 inh IH Q4H PRN 01/21/12 Aspirin [Ecotrin] 81 mg PO DAILY 12/17/15 Fluticasone/Salmeterol [Advair 250-50 Diskus] 2 inh PO BID 12/17/15 Insulin (Levemir) [Levemir Vial] 25 units SQ BID 12/17/15 Insulin (Novolog) [Novolog -] 0 units SQ AC 12/17/15 Citalopram Hydrobromide [Celexa -] 40 mg PO DAILY 08/27/16 Atorvastatin Ca [Lipitor] 80 mg PO HS #14 tablet 09/07/16 Hydralazine HCl [Apresoline -] 50 mg PO TID #90 tablet 10/10/16 Isosorbide Mononitrate [Imdur -] 60 mg PO DAILY #30 tab.sr.24h 10/10/16 Carvedilol [Coreg -] 6.25 mg PO DAILY 07/12/17 Furosemide [Lasix] 40 mg PO BID 07/12/17 Aripiprazole [Abilify -] 2 mg PO DAILY #30 tablet 07/13/17 Citalopram Hydrobromide [Celexa -] 40 mg PO DAILY #30 tablet 07/13/17 - Diagnosis (1) Alcohol dependence with uncomplicated withdrawal Status: Acute (2) Insomnia Status: Acute Qualifiers: Insomnia type: unspecified Qualified Code(s): G47.00 - Insomnia, unspecified; G47.00 - Insomnia, unspecified (3) Nicotine dependence Status: Chronic Qualifiers: Nicotine product type: cigarettes Substance use status: uncomplicated Qualified Code(s): F17.210 - Nicotine dependence, cigarettes, uncomplicated; F17.210 - Nicotine dependence, cigarettes, uncomplicated (4) Opioid dependence with withdrawal Status: Acute (5) Substance induced mood disorder Status: Acute (6) Asthma Status: Chronic Qualifiers: Asthma severity: mild Asthma persistence: intermittent Asthma complication type: uncomplicated Qualified Code(s): J45.20 - Mild intermittent asthma, uncomplicated; J45.20 - Mild intermittent asthma, uncomplicated; J45.20 - Mild intermittent asthma, uncomplicated (7) CHF (congestive heart failure) Status: Chronic Qualifiers: Congestive heart failure type: unspecified congestive heart failure type Congestive heart failure chronicity: acute on chronic Qualified Code(s ): I50.9 - Heart failure, unspecified; I50.9 - Heart failure, unspecified; I50.9 - Heart failure, unspecified; I50.9 - Heart failure, unspecified (8) COPD (chronic obstructive pulmonary disease) Status: Chronic Qualifiers: COPD type: unspecified COPD Qualified Code(s): J44.9 - Chronic obstructive pulmonary disease, unspecified; J44.9 - Chronic obstructive pulmonary disease, unspecified; J44.9 - Chronic obstructive pulmonary disease, unspecified; J44.9 - Chronic obstructive pulmonary disease, unspecified (9) Chronic kidney disease (CKD) stage G3a/A3, moderately decreased glomerular filtration rate (GFR) between 45-59 mL/min/1.73 square meter and albuminuria creatinine ratio greater than 300 mg/g Status: Chronic (10) Cocaine dependence, uncomplicated Status: Chronic (11) HTN (hypertension) Status: Chronic Qualifiers: Hypertension type: essential hypertension Qualified Code(s): I10 - Essential (primary) hypertension; I10 - Essential (primary) hypertension; I10 - Essential (primary) hypertension (12) Hepatitis C Status: Resolved Qualifiers: Viral hepatitis chronicity: unspecified Hepatic coma status: without hepatic coma Qualified Code(s): B19.20 - Unspecified viral hepatitis C without hepatic coma; B19.20 - Unspecified viral hepatitis C without hepatic coma (13) History of partial nephrectomy Status: Chronic (14) Type II diabetes mellitus Status: Chronic Qualifiers: Diabetes mellitus complication status: with unspecified complications Diabetes mellitus termite renewal inspector insulin use: with termite renewal inspector use Qualified Code(s): E11.8 - Type 2 diabetes mellitus with unspecified complications; E11.8 - Type 2 diabetes mellitus with unspecified complications; E11.8 - Type 2 diabetes mellitus with unspecified complications; E11.8 - Type 2 diabetes mellitus with unspecified complications; Z79.4 - termite control representative (current) use of insulin; Z79.4 - termite control representative (current) use of insulin; Z79.4 - termite control representative (current ) use of insulin; Z79.4 - termite control representative (current) use of insulin (15) Anxiety and depression Status: Acute (16) IDDM (insulin dependent diabetes mellitus) Status: Chronic (17) MDD (major depressive disorder) Status: Chronic Qualifiers: Major depression recurrence: recurrent Active/Remission status: remission status unspecified Qualified Code(s): F33.9 - Major depressive disorder, recurrent, unspecified; F33.9 - Major depressive disorder, recurrent, unspecified; F33.9 - Major depressive disorder, recurrent, unspecified; F33.9 - Major depressive disorder, recurrent, unspecified - AMA Did Patient Leave Against Medical Advice: No
[2017-07-17] MEDS ORDERED: METHADONE HCL 5 MG TABLET (FOR DETOX USE ONLY) PO SCH (06:00)
== END 2017-07-16 13:45 | disposition home or self-care (01) | DRG 897 ==
LOC: YASAS 09:45 → Y3N 13:32
PROVIDERS: ADMIT Internal Medicine; ATTEND Internal Medicine
PROC: HZ2ZZZZ Detoxification Services for Substance Abuse Treatment (ICD-10-PCS; principal; 2017-07-12)
DX: F11.23 Opioid dependence with withdrawal (principal); F14.20 Cocaine dependence, uncomplicated; F33.9 Major depressive disorder, recurrent, unspecified; Q25.0 Patent ductus arteriosus; F10.230 Alcohol dependence with withdrawal, uncomplicated; F17.210 Nicotine dependence, cigarettes, uncomplicated; F19.24 Other psychoactive substance dependence with psychoactive substance-induced mood disorder; F41.8 Other specified anxiety disorders; E78.00 Pure hypercholesterolemia, unspecified; D64.9 Anemia, unspecified; G40.909 Epilepsy, unspecified, not intractable, without status epilepticus; I12.9 Hypertensive chronic kidney disease with stage 1 through stage 4 chronic kidney disease, or unspecified chronic kidney disease; E11.22 Type 2 diabetes mellitus with diabetic chronic kidney disease; E11.65 Type 2 diabetes mellitus with hyperglycemia; N18.3 Chronic kidney disease, stage 3 (moderate); Z79.4 Long term (current) use of insulin; R80.9 Proteinuria, unspecified; R81 Glycosuria; I50.9 Heart failure, unspecified; B19.20 Unspecified viral hepatitis C without hepatic coma; Z87.438 Personal history of other diseases of male genital organs; Z85.528 Personal history of other malignant neoplasm of kidney; Z91.013 Allergy to seafood; Z88.5 Allergy status to narcotic agent
CPT/HCPCS: 36415; 80053; 81003; 81015; 85027; 86593; 87389; 90688; 93005; 93010; 94640; G0008